=== PATIENT | female | born 1940 | race African-American/Black ===

== ENCOUNTER 2017-10-09 17:47 | Inpatient (IN) | payer MEDICAID ==
[~2017-10-09] VITALS: Ht 157.5 cm; Wt 59.0 kg
[~2017-10-09 17:47] MED LIST: FEOSOL1 TAB ORAL; FERROUS SULFAT500 G1 MC; METOPROLOL TART50 M1 ORAL; NKM; NORVASC5 MG ORAL; PROTONIX40 MG ORAL; VITAMIN C500 M1 ORAL; VITAMIN D1000 UNI1 ORAL
[2017-10-09] MEDS ORDERED: HYDRALAZINE HCL25 M1 ORAL (18:10)
[2017-10-09] MEDS ORDERED: METOPROLOL TART50 M1 ORAL (18:10)
[2017-10-09] MEDS ORDERED: VITAMIN D22000 UNIT PO (18:11)
[2017-10-09] MEDS ORDERED: HYDROCHLOROTHIA25 MG ORAL (18:11)
[2017-10-09] MEDS ORDERED: AMLODIPINE BESY10 MG ORAL (18:11)
[2017-10-09] MEDS ORDERED: ASPIR 8181 MG ORAL (18:11)
[2017-10-09 19:10] VITALS: BP 132/70
[2017-10-09 19:38] LABS: BASOPHILS % (AUTO) 1.8 % (0.0-2.0); EOSINOPHILS % (AUTO) 0.3 % (0.0-3.0); HEMATOCRIT 33.1 % (37.0-47.0); HEMOGLOBIN 11.2 G/DL (12.0-16.0); MEAN CORPUSCULAR VOLUME 80 FL (80-99); MONOCYTES % (AUTO) 11.5 % (1.0-10.0); NEUTROPHILS % (AUTO) 77.4 % (45.0-75.0); PLATELET COUNT 451 K/UL (150-450); RED BLOOD COUNT 4.16 M/UL (4.20-5.40); RED CELL DISTRIBUTION WIDTH 14.3 % (11.6-14.8); WHITE BLOOD COUNT 8.5 K/UL (4.8-10.8)
[2017-10-09 19:41] LABS: ANION GAP 11 mmol/L (5-15); BLOOD UREA NITROGEN 11 mg/dL (7-18); CALCIUM 8.5 MG/DL (8.5-10.1); CARBON DIOXIDE 25 MMOL/L (21-32); CHLORIDE 89 MMOL/L (98-107); CREATININE 0.9 MG/DL (0.55-1.30); SODIUM 125 MMOL/L (136-145)
[2017-10-09 19:42] LABS: APPEARANCE,URINE CLEAR; BILIRUBIN, URINE NEGATIVE (NEGATIVE); GLUCOSE, URINE (UA) NEGATIVE (NEGATIVE); KETONES,URINE 2+ (NEGATIVE); LEUKOCYTE ESTERASE ,URINE 1+ (NEGATIVE); NITRITE,URINE NEGATIVE (NEGATIVE); PH,URINE 6 (4.5-8.0); PROTEIN,URINE 1+ (NEGATIVE); UROBILINOGEN,URINE 1 MG/DL (0.0-1.0)
[2017-10-09 19:46] LABS: ALANINE AMINOTRANSFERASE 16 U/L (12-78); ALBUMIN 2.8 G/DL (3.4-5.0); ALBUMIN/GLOBULIN RATIO 0.5 (1.0-2.7); ALKALINE PHOSPHATASE 72 U/L (46-116); ASPARTATE AMINO TRANSFERASE 59 U/L (15-37); BILIRUBIN,TOTAL 0.6 MG/DL (0.2-1.0)
[2017-10-09 19:48] LABS: COLOR,URINE YELLOW
[2017-10-09 20:10] VITALS: BP 131/72
[2017-10-09 21:10] VITALS: BP 128/70
--- NOTE | 2017-10-09 21:27 | Emergency Room Report ---
History of Present Illness General Chief Complaint: General Complaint Source: Patient Present Illness HPI 77-year-old female presents to ED for evaluation. Daughter at bedside states that patient has been having poor appetite and weakness for the last week. Patient states whenever she eats she feels full. Denies any abdominal pain. Denies any nausea or vomiting. Denies fevers or chills. Denies cough. Denies chest pain or shortness of breath. No other aggravating relieving factors. Denies any other associated symptoms Allergies: Coded Allergies: No Known Allergies (Unverified , 06/09/16) Patient History Past Medical History: HTN Past Surgical History: none Pertinent Family History: none Social History: Denies: smoking, alcohol use, drug use Now: No Immunizations: UTD Reviewed Nursing Documentation: PMH: Agreed; PSxH: Agreed Nursing Documentation-PMH Hx Cardiac Problems: Yes Hx Hypertension: Yes Hx Cancer: No Hx Gastrointestinal Problems: No Hx Neurological Problems: No Review of Systems All Other Systems: negative except mentioned in HPI Physical Exam Vital Signs Date Time Temp Pulse Resp B/P (MAP) Pulse Ox O2 Delivery O2 Flow Rate FiO2 10/09/17 17:59 100.0 92 18 132/70 99 Room Air 100.0 Sp02 EP Interpretation: reviewed, normal General Appearance: no apparent distress, alert, GCS 15, non-toxic Head: normocephalic, atraumatic Eyes: bilateral eye normal inspection, bilateral eye PERRL ENT: hearing grossly normal, normal pharynx, no angioedema, normal voice Neck: full range of motion, supple/symm/no masses Respiratory: chest non-tender, lungs clear, normal breath sounds, speaking full sentences Cardiovascular #1: regular rate, rhythm, no edema Cardiovascular #2: 2+ carotid (R), 2+ carotid (L), 2+ radial (R), 2+ radial (L) , 2+ dorsalis pedis (R), 2+ dorsalis pedis (L) Gastrointestinal: normal bowel sounds, soft, no guarding, no rebound, distended Rectal: deferred Genitourinary: normal inspection, no CVA tenderness Musculoskeletal: back normal, gait/station normal, normal range of motion, non- tender Neurologic: alert, oriented x3, responsive, motor strength/tone normal, sensory intact, speech normal Psychiatric: judgement/insight normal, memory normal, mood/affect normal, no suicidal/homicidal ideation Reflexes: 3+ bicep (R), 3+ bicep (L), 3+ tricep (R), 3+ tricep (L), 3+ knee (R) , 3+ knee (L) Skin: normal color, no rash, warm/dry, well hydrated Lymphatic: no adenopathy Medical Decision Making Diagnostic Impression: Primary Impression: Carcinomatosis peritonei Additional Impressions: Pulmonary metastases Qualified Codes: C78.00 - Secondary malignant neoplasm of unspecified lung Hyponatremia Weakness ER Course Hospital Course 77-year-old female presents ED complaining of weakness, poor appetite Differential diagnoses include: dehydration, sepsis, UTI Clinical course Patient placed on stretcher. 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 After initial history and physical I ordered labs, IV fluids, UA, pepcid, CT A/P Labs - no leukocytosis, Hb/Hct stable. Na 125, UA negative CT abdomen and pelvis - carcinomatosis of the omentum and peritoneum. Ascites. Pulmonary metastases Discussed findings with patient. Patient had no prior knowledge of this condition. Case discussed with Dr. Reyes and he agreed to accept the patient to his service for further care and support I feel this is a highly complex case requiring extensive working including EKG/ Rhythm strip, Xray/CT/US, Blood/urine lab work, repeat exams while in ED, and administration of strong opiates/narcotics for pain control, admission to hospital or close patient follow up. Diagnosis - peritoneal carcinomatosis, pulmonary metastases, hyponatremia, weakness Patient admitted to floor in serious condition Labs Test 10/09/17 19:00 10/09/17 19:15 White Blood Count 8.5 K/UL (4.8-10.8) Red Blood Count 4.16 M/UL (4.20-5.40) Hemoglobin 11.2 G/DL (12.0-16.0) Hematocrit 33.1 % (37.0-47.0) Mean Corpuscular Volume 80 FL (80-99) Mean Corpuscular Hemoglobin 26.8 PG (27.0-31.0) Mean Corpuscular Hemoglobin Concent 33.7 G/DL (32.0-36.0) Red Cell Distribution Width 14.3 % (11.6-14.8) Platelet Count 451 K/UL (150-450) Mean Platelet Volume 6.1 FL (6.5-10.1) Neutrophils (%) (Auto) 77.4 % (45.0-75.0) Lymphocytes (%) (Auto) 9.0 % (20.0-45.0) Monocytes (%) (Auto) 11.5 % (1.0-10.0) Eosinophils (%) (Auto) 0.3 % (0.0-3.0) Basophils (%) (Auto) 1.8 % (0.0-2.0) Sodium Level 125 MMOL/L (136-145) Potassium Level 4.0 MMOL/L (3.5-5.1) Chloride Level 89 MMOL/L (98-107) Carbon Dioxide Level 25 MMOL/L (21-32) Anion Gap 11 mmol/L (5-15) Blood Urea Nitrogen 11 mg/dL (7-18) Creatinine 0.9 MG/DL (0.55-1.30) Estimat Glomerular Filtration Rate mL/min (>60) Glucose Level 91 MG/DL (74-106) Calcium Level 8.5 MG/DL (8.5-10.1) Total Bilirubin 0.6 MG/DL (0.2-1.0) Aspartate Amino Transf (AST/SGOT) 59 U/L (15-37) Alanine Aminotransferase (ALT/SGPT) 16 U/L (12-78) Alkaline Phosphatase 72 U/L (46-116) Total Protein 8.2 G/DL (6.4-8.2) Albumin 2.8 G/DL (3.4-5.0) Globulin 5.4 g/dL Albumin/Globulin Ratio 0.5 (1.0-2.7) Lipase 168 U/L (73-393) Urine Color Yellow Urine Appearance Clear Urine pH 6 (4.5-8.0) Urine Specific [place] 1.010 (1.005-1.035) Urine Protein 1+ (NEGATIVE) Urine Glucose (UA) Negative (NEGATIVE) Urine Ketones 2+ (NEGATIVE) Urine Occult Blood 4+ (NEGATIVE) Urine Nitrite Negative (NEGATIVE) Urine Bilirubin Negative (NEGATIVE) Urine Urobilinogen 1 MG/DL (0.0-1.0) Urine Leukocyte Esterase 1+ (NEGATIVE) Urine RBC 0-2 /HPF (0 - 2) Urine WBC 2-4 /HPF (0 - 2) Urine Squamous Epithelial Cells Few /LPF (NONE/OCC) Urine Bacteria Occasional /HPF (NONE) CT/MRI/US Diagnostic Results CT/MRI/US Diagnostic Results : Imaging Test Ordered: CT A/P Impression Moderate ascites. Significant omental/peritoneal carcinomatosis. Due to ascites/edema, cannot exclude pancreatitis, gastritis, enteritis, colitis. No SBO or diverticulitis. No hydronephrosis. Pulmonary metastasis. Last Vital Signs Date Time Temp Pulse Resp B/P (MAP) Pulse Ox O2 Delivery O2 Flow Rate FiO2 10/09/17 19:10 100.0 98 18 132/70 99 Room Air 100.0 Status: improved Disposition: ADMITTED INPATIENT Condition: Serious Referrals: VAN PHILLIPS,REFERRING (PCP) Pascual Torres MD Oct 09, 2017 21:27
[2017-10-09 22:02] VITALS: BP 140/82
[2017-10-09] MEDS ORDERED: Acetaminophen 500mg (ES) tab ORAL ONE (22:15)
[2017-10-09] MEDS: Metoprolol Tartrate 12.5mg TAB ORAL SCH (22:15)
[2017-10-09] MEDS ORDERED: D5NS 1,000 ML IV SCH (22:15)
[2017-10-09 23:00] VITALS: BP 138/82
[2017-10-09 23:56] VITALS: BP 103/46
[2017-10-10] MEDS: Heparin 5000 units/ml inj SUBQ SCH ×3 (00:13→20:25)
[2017-10-10 04:16] VITALS: BP 123/53
[2017-10-10 07:06] LABS: ALANINE AMINOTRANSFERASE 15 U/L (12-78); ALBUMIN 2.4 G/DL (3.4-5.0); ALBUMIN/GLOBULIN RATIO 0.5 (1.0-2.7); ALKALINE PHOSPHATASE 64 U/L (46-116); ANION GAP 9 mmol/L (5-15); ASPARTATE AMINO TRANSFERASE 60 U/L (15-37); BILIRUBIN,TOTAL 0.5 MG/DL (0.2-1.0); BLOOD UREA NITROGEN 9 mg/dL (7-18); CARBON DIOXIDE 27 MMOL/L (21-32); CHLORIDE 93 MMOL/L (98-107); CREATININE 0.7 MG/DL (0.55-1.30); POTASSIUM 3.2 MMOL/L (3.5-5.1); SODIUM 129 MMOL/L (136-145)
[2017-10-10 07:11] LABS: % IRON SATURATION 10 % (15-50); IRON 17 ug/dL (50-175); TOTAL IRON BINDING CAPACITY 177 ug/dL (250-450)
[2017-10-10 07:28] LABS: BASOPHILS % (AUTO) 1.4 % (0.0-2.0); EOSINOPHILS % (AUTO) 0.8 % (0.0-3.0); LYMPHOCYTES % (AUTO) 11.5 % (20.0-45.0); MEAN CORPUSCULAR VOLUME 80 FL (80-99); MONOCYTES % (AUTO) 13.4 % (1.0-10.0); NEUTROPHILS % (AUTO) 72.9 % (45.0-75.0); PLATELET COUNT 392 K/UL (150-450); RED BLOOD COUNT 4.01 M/UL (4.20-5.40); WHITE BLOOD COUNT 6.8 K/UL (4.8-10.8)
[2017-10-10 07:29] LABS: AMYLASE 37 U/L (25-115)
[2017-10-10 08:00] VITALS: BP 140/62
--- NOTE | 2017-10-10 08:01 | History & Physical ---
History and Physical History & Physicial seen and examined. Full Dict completed. Dalila Reyes MD Oct 10, 2017 08:01
--- NOTE | 2017-10-10 08:03 | General Progress Note ---
Assessment/Plan Status: stable Assessment/Plan 1- Metastatic CA- Diagnostic staging purpose 2- Hyponatremia 3- Anemia 4- HTN 5-malnourishment Plan: Oncology Nephrology GI services are consulted Subjective ROS Limited/Unobtainable: No Constitutional: Reports: malaise HEENT: Reports: no symptoms Cardiovascular: Reports: no symptoms Respiratory: Reports: no symptoms Allergies: Coded Allergies: No Known Allergies (Unverified , 06/09/16) Objective Last 24 Hour Vital Signs Date Time Temp Pulse Resp B/P (MAP) Pulse Ox O2 Delivery O2 Flow Rate FiO2 10/10/17 04:16 97.5 75 20 123/53 99 Room Air 97.5 10/09/17 23:56 98.4 57 18 103/46 98 Room Air 98.4 10/09/17 23:15 100.5 90 16 138/82 98 Room Air 100.5 10/09/17 23:10 100.5 10/09/17 23:00 100.5 90 16 138/82 98 Room Air 100.5 10/09/17 22:15 57 103/46 10/09/17 22:11 101.3 10/09/17 22:02 101.3 87 16 140/82 99 101.3 10/09/17 21:10 100.6 92 18 128/70 99 Room Air 100.6 10/09/17 20:10 100.2 90 18 131/72 99 Room Air 100.2 10/09/17 19:10 100.0 98 18 132/70 99 Room Air 100.0 10/09/17 17:59 100.0 92 18 132/70 99 Room Air 100.0 Intake and Output 10/09/17 10/10/17 19:00 07:00 Intake Total 1375 ml Balance 1375 ml Intake IV Total 1375 ml # Voids 4 # Bowel Movements 1 Laboratory Tests 10/09/17 19:00: White Blood Count 8.5, Red Blood Count 4.16L, Hemoglobin 11.2L, Hematocrit 33.1L , Mean Corpuscular Volume 80, Mean Corpuscular Hemoglobin 26.8L, Mean Corpuscular Hemoglobin Concent 33.7, Red Cell Distribution Width 14.3, Platelet Count 451H, Mean Platelet Volume 6.1L, Neutrophils (%) (Auto) 77.4H, Lymphocytes (%) (Auto) 9.0L, Monocytes (%) (Auto) 11.5H, Eosinophils (%) (Auto) 0.3, Basophils (%) (Auto) 1.8, Sodium Level 125L, Potassium Level 4.0, Chloride Level 89L, Carbon Dioxide Level 25, Anion Gap 11, Blood Urea Nitrogen 11, Creatinine 0.9, Estimat Glomerular Filtration Rate , Glucose Level 91, Calcium Level 8.5, Total Bilirubin 0.6, Aspartate Amino Transf (AST/SGOT) 59H, Alanine Aminotransferase (ALT/SGPT) 16, Alkaline Phosphatase 72, Total Protein 8.2, Albumin 2.8L, Globulin 5.4, Albumin/Globulin Ratio 0.5L, Lipase 168 10/09/17 19:15: Urine Color Yellow, Urine Appearance Clear, Urine pH 6, Urine Specific [place] 1.010, Urine Protein 1+H, Urine Glucose (UA) Negative, Urine Ketones 2+H, Urine Occult Blood 4+H, Urine Nitrite Negative, Urine Bilirubin Negative, Urine Urobilinogen 1H, Urine Leukocyte Esterase 1+H, Urine RBC 0-2, Urine WBC 2-4, Urine Squamous Epithelial Cells Few, Urine Bacteria Occasional 10/10/17 05:20: White Blood Count 6.8, Red Blood Count 4.01L, Hemoglobin 11.0L, Hematocrit 32.0L , Mean Corpuscular Volume 80, Mean Corpuscular Hemoglobin 27.4, Mean Corpuscular Hemoglobin Concent 34.4, Red Cell Distribution Width 14.0, Platelet Count 392, Mean Platelet Volume 5.4L, Neutrophils (%) (Auto) 72.9, Lymphocytes ( %) (Auto) 11.5L, Monocytes (%) (Auto) 13.4H, Eosinophils (%) (Auto) 0.8, Basophils (%) (Auto) 1.4, Sodium Level 129L, Potassium Level 3.2L, Chloride Level 93L, Carbon Dioxide Level 27, Anion Gap 9, Blood Urea Nitrogen 9, Creatinine 0.7, Estimat Glomerular Filtration Rate , Glucose Level 95, Calcium Level 8.0L, Total Bilirubin 0.5, Aspartate Amino Transf (AST/SGOT) 60H, Alanine Aminotransferase (ALT/SGPT) 15, Alkaline Phosphatase 64, Total Protein 7.5, Albumin 2.4L, Globulin 5.1, Albumin/Globulin Ratio 0.5L, Lipase 138, Hemoglobin A1c 6.0, Iron Level 17L, Total Iron Binding Capacity 177L, Percent Iron Saturation 10L, Unsaturated Iron Binding 160, Pro-B-Type Natriuretic Peptide 692H, Total Protein (PEP) [Pending], Albumin (PEP) [Pending], Globulin (PEP) [ Pending], Evqag-0-Gjlwrknfa [Pending], Tytls-6-Bdkynxijf [Pending], Beta Globulins [Pending], Beta Gamma Globulin [Pending], PEP Abnormal Protein Bands [ Pending], Protein Electrophoresis Interpret [Pending], Amylase Level 37, Hepatitis A IgM Antibody [Pending], Hepatitis B Surface Antigen [Pending], Hepatitis B Core IgM Antibody [Pending], Hepatitis C Antibody [Pending] Height (Feet): 5 Height (Inches): 2.00 Weight (Pounds): 130 General Appearance: WD/WN EENT: PERRL/EOMI Neck: supple Cardiovascular: normal rate Respiratory/Chest: lungs clear Abdomen: soft, other - site of prior abd surgey noted Extremities: non-tender, other - low muscle mass and cachexia Neurologic: java j2ee technical lead II-XII grossly normal Dalila Reyes MD Oct 10, 2017 08:03
[2017-10-10] MEDS: Metoprolol Tartrate 12.5mg TAB ORAL SCH ×2 (08:15→20:24)
--- NOTE | 2017-10-10 09:33 | Diagnostic Imaging Report ---
Clinical Indication: Abdominal pain Technique: No oral contrast utilized, per emergency room physician request IV administration nonionic contrast. Venous phase spiral acquisition obtained through the abdomen and pelvis. Multiplanar reconstructions were generated. Total dose length product 584.38 mGycm. CTDIvol(s) 11.46 mGy. Dose reduction achieved using automated exposure control Comparison: 01/18/2017 Findings: Interim resection of previously demonstrated right cecal mass with a colocolic anastomosis. No evidence of bowel obstruction currently. However, innumerable masses are seen throughout the peritoneal space and probably the retroperitoneum. The largest is in the right paracolic gutter and has a long axis dimension of 14 cm. These mostly demonstrate low-attenuation centers consistent with necrosis. There is a small amount of ascites fluid present. There is a small sliding-type hiatal hernia. A few small bowel loops demonstrate equivocal mild wall thickening. No free intraperitoneal gas demonstrated. There is a small fat-containing left inguinal hernia The liver, gallbladder, bile ducts, pancreas, spleen, adrenals are unremarkable. The kidneys demonstrate bilateral cysts. The uterus is not visualized, presumed surgically absent. Bilateral lung base nodules are demonstrated, largest on the left measuring 3 cm in diameter. The bones are unremarkable except for degenerative spondylosis changes. Impression: No evidence of bowel obstruction Interim resection of previously demonstrated cecal mass Extensive multiple peritoneal and mesenteric and retroperitoneal masses, markedly progressed since previous exam of 01/18/2017, consistent with metastatic carcinomatosis Ascites, presumed malignant Pulmonary masses consistent with metastases Evidence of prior hysterectomy This agrees with the preliminary interpretation provided overnight by [facility] teleradiology service. The CT scanner at [facility] is accredited by the [employer] and the scans are performed using protocols designed to limit radiation exposure to as low as reasonably achievable to attain images of sufficient resolution adequate for diagnostic evaluation.
--- NOTE | 2017-10-10 10:49 | GI Initial Consult Note ---
History of Present Illness General Date patient seen: Oct 10, 2017 Time patient seen: 10:39 Reason for Hospitalization: General Complaint Referring physician: CHARI PEREYRA Present Illness HPI 77-year-old female presents to ED for evaluation. Daughter at bedside states that patient has been having poor appetite and weakness for the last week. Patient states whenever she eats she feels full. Denies any abdominal pain. Denies any nausea or vomiting. Denies fevers or chills. Denies cough. Denies chest pain or shortness of breath. No other aggravating relieving factors. Denies any other associated symptoms. GI consulted for poor appetite. Pt seen, awake alert NAD with no active s/sx of N/V/D. Patient previously seen at [place] found to have metastatic adenocarcinoma, see diagnosis below. CT AP reviewed. She presents today with anemia, AST elevation and electrolyte imbalance. CT AP Impression: No evidence of bowel obstruction Interim resection of previously demonstrated cecal mass Extensive multiple peritoneal and mesenteric and retroperitoneal masses, markedly progressed since previous exam of 01/18/2017, consistent with metastatic carcinomatosis Ascites, presumed malignant Pulmonary masses consistent with metastases Evidence of prior hysterectomy DISCHARGE DIAGNOSES during last admission in January 2017: 1. 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 2. Status post right hemicolectomy on 01/21/2017. 3. Iron-deficiency anemia. 4. Postoperative ileus. 5. Hypertensive urgency, resolved. 6. Thyroid goiter, nontoxic 7. Status post on 01/18/2017 esophagogastroduodenoscopy and colonoscopy. 8. Gastritis. 9. Large colonic mass, status post one polypectomy. Home Meds Active Scripts Amlodipine Besylate (Norvasc) 5 Mg Tablet, 5 MG ORAL BID for 30 Days, #60 TAB Prov:ALETA LÓPEZ 06/11/16 Pantoprazole* (PROTONIX*) 40 Mg Tablet., 40 MG ORAL DAILY for 30 Days, #30 TAB Prov:ALETA LÓPEZ 06/11/16 Reported Medications Aspirin* (ASPIR 81*) 81 Mg Tablet.dr, 81 MG ORAL DAILY, TAB 10/09/17 Ergocalciferol (Vitamin D2) (VITAMIN D2) 2,000 Unit Tablet, [address] UNIT PO ONCE A WEEK, TAB 10/09/17 Amlodipine Besylate* (AMLODIPINE BESYLATE*) 10 Mg Tablet, 20 MG ORAL DAILY, TAB 10/09/17 Hydrochlorothiazide* (HYDROCHLOROTHIAZIDE*) 25 Mg Tablet, 25 MG ORAL DAILY, TAB 10/09/17 Metoprolol Tartrate* (METOPROLOL TARTRATE*) 50 Mg Tablet, 50 MG ORAL TWICE A DAY , TAB 10/09/17 Hydralazine Hcl* (HYDRALAZINE HCL*) 25 Mg Tablet, 25 MG ORAL TWICE A DAY, TAB 0 Refills 10/09/17 Metoprolol Tartrate* (METOPROLOL TARTRATE*) 50 Mg Tablet, 50 MG ORAL EVERY 12 HOURS, TAB 01/25/17 No Known Medications* (NKM - No Known Medications*) ., 0 ., 0 Refills 01/16/17 Ferrous Sulfate (Ferrous Sulfate) 325 Mg Tablet, 1 TAB ORAL TID, #90 TAB 2 Refills 06/11/16 Ferrous Sulfate (Ferrous Sulfate) 325 Mg Tablet, 1 TAB ORAL TID, #90 TAB 0 Refills 06/11/16 Med list reviewed/reconciled: Yes Allergies: Coded Allergies: No Known Allergies (Unverified , 06/09/16) Patient History Limited by: medical condition History Provided By: Patient, Medical Record PMH Narrative Past Medical History: HTN Past Surgical History: none Pertinent Family History: none Social History: Denies: smoking, alcohol use, drug use Now: No Immunizations: UTD Reviewed Nursing Documentation: PMH: Agreed; PSxH: Agreed Nursing Documentation-PMH Hx Cardiac Problems: Yes Hx Hypertension: Yes Hx Cancer: No Hx Gastrointestinal Problems: No Hx Neurological Problems: No Social History: Denies: smoking, alcohol use, drug use, other Review of Systems All Other Systems: negative except mentioned in HPI Physical Exam Vital Signs Date Time Temp Pulse Resp B/P (MAP) Pulse Ox O2 Delivery O2 Flow Rate FiO2 10/09/17 17:59 100.0 92 18 132/70 99 Room Air 100.0 Sp02 EP Interpretation: reviewed, normal Labs Laboratory Tests Test 10/09/17 19:00 10/09/17 19:15 10/10/17 05:20 White Blood Count 8.5 K/UL (4.8-10.8) 6.8 K/UL (4.8-10.8) Red Blood Count 4.16 M/UL (4.20-5.40) L 4.01 M/UL (4.20-5.40) L Hemoglobin 11.2 G/DL (12.0-16.0) L 11.0 G/DL (12.0-16.0) L Hematocrit 33.1 % (37.0-47.0) L 32.0 % (37.0-47.0) L Mean Corpuscular Volume 80 FL (80-99) 80 FL (80-99) Mean Corpuscular Hemoglobin 26.8 PG (27.0-31.0) L 27.4 PG (27.0-31.0) Mean Corpuscular Hemoglobin Concent 33.7 G/DL (32.0-36.0) 34.4 G/DL (32.0-36.0) Red Cell Distribution Width 14.3 % (11.6-14.8) 14.0 % (11.6-14.8) Platelet Count 451 K/UL (150-450) H 392 K/UL (150-450) Mean Platelet Volume 6.1 FL (6.5-10.1) L 5.4 FL (6.5-10.1) L Neutrophils (%) (Auto) 77.4 % (45.0-75.0) H 72.9 % (45.0-75.0) Lymphocytes (%) (Auto) 9.0 % (20.0-45.0) L 11.5 % (20.0-45.0) L Monocytes (%) (Auto) 11.5 % (1.0-10.0) H 13.4 % (1.0-10.0) H Eosinophils (%) (Auto) 0.3 % (0.0-3.0) 0.8 % (0.0-3.0) Basophils (%) (Auto) 1.8 % (0.0-2.0) 1.4 % (0.0-2.0) Sodium Level 125 MMOL/L (136-145) L 129 MMOL/L (136-145) L Potassium Level 4.0 MMOL/L (3.5-5.1) 3.2 MMOL/L (3.5-5.1) L Chloride Level 89 MMOL/L (98-107) L 93 MMOL/L (98-107) L Carbon Dioxide Level 25 MMOL/L (21-32) 27 MMOL/L (21-32) Anion Gap 11 mmol/L (5-15) 9 mmol/L (5-15) Blood Urea Nitrogen 11 mg/dL (7-18) 9 mg/dL (7-18) Creatinine 0.9 MG/DL (0.55-1.30) 0.7 MG/DL (0.55-1.30) Estimat Glomerular Filtration Rate mL/min (>60) mL/min (>60) Glucose Level 91 MG/DL (74-106) 95 MG/DL (74-106) Calcium Level 8.5 MG/DL (8.5-10.1) 8.0 MG/DL (8.5-10.1) L Total Bilirubin 0.6 MG/DL (0.2-1.0) 0.5 MG/DL (0.2-1.0) Aspartate Amino Transf (AST/SGOT) 59 U/L (15-37) H 60 U/L (15-37) H Alanine Aminotransferase (ALT/SGPT) 16 U/L (12-78) 15 U/L (12-78) Alkaline Phosphatase 72 U/L (46-116) 64 U/L (46-116) Total Protein 8.2 G/DL (6.4-8.2) 7.5 G/DL (6.4-8.2) Albumin 2.8 G/DL (3.4-5.0) L 2.4 G/DL (3.4-5.0) L Globulin 5.4 g/dL 5.1 g/dL Albumin/Globulin Ratio 0.5 (1.0-2.7) L 0.5 (1.0-2.7) L Lipase 168 U/L (73-393) 138 U/L (73-393) Urine Color Yellow Urine Appearance Clear Urine pH 6 (4.5-8.0) Urine Specific [place] 1.010 (1.005-1.035) Urine Protein 1+ (NEGATIVE) H Urine Glucose (UA) Negative (NEGATIVE) Urine Ketones 2+ (NEGATIVE) H Urine Occult Blood 4+ (NEGATIVE) H Urine Nitrite Negative (NEGATIVE) Urine Bilirubin Negative (NEGATIVE) Urine Urobilinogen 1 MG/DL (0.0-1.0) H Urine Leukocyte Esterase 1+ (NEGATIVE) H Urine RBC 0-2 /HPF (0 - 2) Urine WBC 2-4 /HPF (0 - 2) Urine Squamous Epithelial Cells Few /LPF (NONE/OCC) Urine Bacteria Occasional /HPF (NONE) Hemoglobin A1c 6.0 % (4.3-6.0) Iron Level 17 ug/dL (50-175) L Total Iron Binding Capacity 177 ug/dL (250-450) L Percent Iron Saturation 10 % (15-50) L Unsaturated Iron Binding 160 ug/dL (112-346) Pro-B-Type Natriuretic Peptide 692 pg/mL (0-125) H Total Protein (PEP) Pending Albumin (PEP) Pending Globulin (PEP) Pending Yexcf-5-Nywuetmyw Pending Qnlrw-5-Yfcurljad Pending Beta Globulins Pending Beta Gamma Globulin Pending PEP Abnormal Protein Bands Pending Protein Electrophoresis Interpret Pending Amylase Level 37 U/L (25-115) Hepatitis A IgM Antibody Pending Hepatitis B Surface Antigen Pending Hepatitis B Core IgM Antibody Pending Hepatitis C Antibody Pending General Appearance: well appearing, no apparent distress, alert, thin Head: normocephalic EENT: PERRL/EOMI, normal ENT inspection Neck: supple Respiratory: normal breath sounds, no respiratory distress Cardiovascular: normal rate Gastrointestinal: normal inspection, non tender, soft, normal bowel sounds, non -distended Rectal: deferred Genitourinary: no CVA tenderness Musculoskeletal: normal inspection, back normal Neurologic: normal inspection, alert, oriented x3, responsive Psychiatric: normal inspection Skin: normal inspection, normal color, no rash, warm/dry, palpation normal, well hydrated Lymphatic: normal inspection, no adenopathy Current Medications Current Medications Medications (Trade) Dose Ordered Sig/Richardson Route PRN Reason Start Time Stop Time Status Last Admin Dose Admin Acetaminophen (Tylenol) 650 mg Q6H PRN ORAL Mild Pain/Temp > 100.5 10/09/17 22:15 11/08/17 22:14 Heparin Sodium (Porcine) (Heparin 5000 units/ml) 5,000 units EVERY 12 HOURS SUBQ 10/09/17 22:15 11/08/17 22:14 10/10/17 08:16 Metoprolol Tartrate (Lopressor) 12.5 mg Q12HR ORAL 10/09/17 22:15 11/08/17 22:14 10/10/17 08:15 Pantoprazole (Protonix) 40 mg DAILY ORAL 10/10/17 09:00 11/09/17 08:59 10/10/17 08:15 Potassium Chloride (K-Dur) 40 meq ONCE ONCE ORAL 10/10/17 12:00 10/10/17 12:01 GI: Plan Problems: (1) Colon cancer (2) Anemia (3) Iron deficiency (4) Lung nodules (5) Carcinomatosis peritonei (6) Hyponatremia (7) Weakness Plan 1. 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 2. Status post right hemicolectomy on 01/21/2017. 3. Iron-deficiency anemia. 4. Postoperative ileus. 5. Hypertensive urgency, resolved. 6. Thyroid goiter, nontoxic 7. Status post on 01/18/2017 esophagogastroduodenoscopy and colonoscopy. 8. Gastritis. 9. Large colonic mass, status post one polypectomy. Recommendations: fu oncology recs symptomatic treatment / supportive care regular soft diet, push PO 1:1 feeder calorie count >> marinol/megace if needed ppi iron panel IV/PO hydration electrolyte correction fu labs, tumor markers, hep panel Discussed with Dr. Styles. Thank you for this patient referral, we will follow. Luna Estrada N.P. Oct 10, 2017 10:49
[2017-10-10 12:00] VITALS: BP 133/61
--- NOTE | 2017-10-10 14:06 | Diagnostic Imaging Report ---
Indication: Abdominal pain Technique: Burgos-scale and duplex images of the upper abdomen were obtained Comparison: . No comparison ultrasounds. Reference made to CT scan 10/09/2017 Findings: There is a small amount of ascites fluid present. Large masses are seen in the abdomen, demonstrating low attenuation presumably necrotic centers. These correspond to a few of the masses demonstrated on recent CT Gallbladder demonstrates a calculus in the gallbladder neck. This is occult on recent CT scan. The gallbladder wall is not thickened. Sonographic Rogers's sign is negative. Common bile duct measures 5 mm in diameter. No intrahepatic biliary ductal dilatation. Liver demonstrates normal echogenicity, no focal abnormality. Portal vein and hepatic veins are patent. Pancreas is unremarkable. Spleen is unremarkable. Left kidney measures 10.5 cm in length. Right kidney measures 11.5 cm length. Both kidneys demonstrate normal echogenicity. There is no hydronephrosis. Both kidneys demonstrate cysts . Abdominal aorta is partially obscured by bowel gas, visualized portions are non-aneurysmal . Ultrasound appears to demonstrate a small left pleural effusion. This is probably artifactual as no pleural fluid is demonstrated on recent CT, possibly represents ascites above the spleen Impression: Cholelithiasis, not visible on recent CT scan. No secondary signs of acute cholecystitis. Negative for biliary ductal dilatation. Small amount of ascites fluid present, also previously described Large abdominal masses, also demonstrated on recent CT Bilateral renal cysts Note limited visualization of the abdominal aorta
[2017-10-10 16:00] VITALS: BP 130/60
--- NOTE | 2017-10-10 19:00 | History and Physical Report ---
DATE OF ADMISSION: 10/09/2017 SOURCE OF INFORMATION: The patient and EMR. HISTORY OF PRESENT ILLNESS: The patient is a pleasant 77-year-old -[place] female with unremarkable history. The patient reported she is suffering from weakness that is worsening from a couple of days to week. At this time of evaluation, the patient denies any chest pain, shortness of breath. No abnormal bleeding. The patient is ambulating with no limitations. REVIEW OF SYSTEMS: All 12 elements reviewed as above. PAST MEDICAL HISTORY: Hypertension and anemia. FAMILY HISTORY: Reviewed and noncontributory. MEDICATIONS: Current hospital medications including amlodipine, aspirin, ferrous sulfate, hydralazine, and metoprolol. SOCIAL HISTORY: The patient denies history of illicit drug abuse, smoking, or alcohol abuse. The patient is a mother of two children, currently one alive. She is a grandmother with two grandchildren. PHYSICAL EXAMINATION: VITAL SIGNS: Blood pressure 130/70, temperature 100, pulse rate 95, and pulse oximetry 99% on room air. HEAD AND NECK: Atraumatic and normocephalic. CHEST: Clear with no wheezing or crackles. HEART: S1 and S2. Regular rate and rhythm. No S3. No S4. ABDOMEN: Soft. No organomegaly. No tenderness. MUSCULOSKELETAL: No gross lateralized motor deficits. No edema. NEUROLOGIC: The patient is awake, alert, and oriented x3. PSYCHIATRIC: Mood and affect is appropriate. LABORATORY DATA: Labs, dated October 09, WBC 8.5, hemoglobin 11.2, and platelets 461,000. Sodium 125, potassium 4, BUN 11, and creatinine 0.9. AST 59 and ALT . BNP 700. Albumin 2.8. Urinalysis is unremarkable for infection. Positive for occult blood. Serology is pending. Imaging, official report is pending. ASSESSMENT: 1. Metastatic cancer with high likelihood of colon as a primary. 2. Hyponatremia. 3. Abnormal LFT. 4. Decondition is likely general diffuse weakness. 5. Malnourishment, moderate. 6. Anemia. 7. Hypertension. 8. Hypokalemia. 9. Gastrointestinal and deep venous thrombosis prophylaxis. PLAN OF CARE: We will start the diagnostic staging purpose per Oncology advice. GI and Nephrology have been consulted. We will start the regular diet. Cleoammaedison Reyes M.D. DR: DARCY JOB#: [id number] CC:
[2017-10-10 19:42] VITALS: BP 146/72
[2017-10-10 23:55] VITALS: BP 134/70
--- NOTE | 2017-10-11 04:01 | Consultation ---
DATE OF CONSULTATION: 10/10/2017 NOTE: POOR AUDIO HEMATOLOGY/ONCOLOGY CONSULTATION CONSULTING PHYSICIAN: Casa Pascal M.D. REQUESTING PHYSICIAN: Dalila Reyes M.D. REASON FOR CONSULTATION: Evaluation of extensive retroperitoneal metastasis , ascites, malignant pulmonary masses. IDENTIFYING DATA: Dear Dr. Reyes, The patient is a pleasant 77-year-old female I have seen before in the past, presents to the ER. The patient states she has been having decreased appetite. I have seen her in the past. She has a history of cecal GI cancer. Denies any other symptoms. GI consulted for poor oral intake. No nausea. No vomiting. Prior was admitted to [facility] with metastatic adenocarcinoma, has not received treatment at this time and Hematology Service consulted. At this time, CT scan performed, which shows worsening disease and some pulmonary nodules as well, large colonic mass noted as well. PAST MEDICAL HISTORY: As noted above. PAST SURGICAL HISTORY: Colectomy. MEDICATIONS: Amlodipine, aspirin, hydrochlorothiazide, metoprolol, hydralazine, and ferrous sulfate. ALLERGIES: No known drug allergies. REVIEW OF SYSTEMS: CONSTITUTIONAL: Some fatigue noted. SKIN: No rashes, bumps, or itching. HEENT: No headache, hearing or vision changes. BREASTS: No lumps, pain, or discharge. PULMONARY: No cough, sputum, or shortness of breath. GASTROINTESTINAL: No nausea, vomiting, or diarrhea. GENITOURINARY: No dysuria, frequency, or urgency. MUSCULOSKELETAL: No joint swelling, muscle pain, or trauma. PHYSICAL EXAMINATION: VITAL SIGNS: Reviewed. GENERAL: No distress. PULMONARY: Decreased breath sounds. Some crackles at the bases. CARDIOVASCULAR: Regular rate. No S3 or S4. ABDOMEN: Soft, nontender, and nondistended. EXTREMITIES: No cyanosis, swelling, or edema noted. LABORATORY AND DIAGNOSTIC DATA: CEA at this time is pending. Serology reviewed, hepatitis panel is currently negative. Imaging reviewed. . ASSESSMENT AND RECOMMENDATIONS: 1. 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 At this time, the patient is currently fatigued and weak, likely due to underlying malignancy. We will need to discuss with her in regards to treatment versus palliation. We will need to also discuss with primary physician. 2. Anemia of iron deficiency. Continue to closely monitor. 3. Transaminitis, likely secondary to involvement, has been seen by GI Service. 4. Weakness and fatigue, likely due to metastatic cancer, stage IV. 5. Malnourishment due to cancer, remains . 6. Hypertension. Systolic blood pressure goal less than 140. I appreciate the consultation Casa Pascal M.D. DR: EVE JOB#: [id number] CC:
[2017-10-11 04:19] VITALS: BP 128/63
[2017-10-11 06:16] LABS: BASOPHILS % (AUTO) 0.9 % (0.0-2.0); EOSINOPHILS % (AUTO) 0.9 % (0.0-3.0); HEMATOCRIT 32.4 % (37.0-47.0); HEMOGLOBIN 10.9 G/DL (12.0-16.0); LYMPHOCYTES % (AUTO) 15.6 % (20.0-45.0); MEAN CORPUSCULAR VOLUME 80 FL (80-99); MONOCYTES % (AUTO) 7.8 % (1.0-10.0); NEUTROPHILS % (AUTO) 74.8 % (45.0-75.0); PLATELET COUNT 408 K/UL (150-450); RED BLOOD COUNT 4.07 M/UL (4.20-5.40); RED CELL DISTRIBUTION WIDTH 14.4 % (11.6-14.8); WHITE BLOOD COUNT 10.1 K/UL (4.8-10.8)
[2017-10-11 06:35] LABS: ALANINE AMINOTRANSFERASE 11 U/L (12-78); ALBUMIN 2.4 G/DL (3.4-5.0); ALBUMIN/GLOBULIN RATIO 0.5 (1.0-2.7); ALKALINE PHOSPHATASE 59 U/L (46-116); ANION GAP 11 mmol/L (5-15); ASPARTATE AMINO TRANSFERASE 63 U/L (15-37); BILIRUBIN,TOTAL 0.4 MG/DL (0.2-1.0); BLOOD UREA NITROGEN 5 mg/dL (7-18); CALCIUM 7.9 MG/DL (8.5-10.1); CARBON DIOXIDE 26 MMOL/L (21-32); CHLORIDE 95 MMOL/L (98-107); CREATININE 0.6 MG/DL (0.55-1.30); POTASSIUM 4.1 MMOL/L (3.5-5.1); SODIUM 131 MMOL/L (136-145)
[2017-10-11] MEDS: Metoprolol Tartrate 12.5mg TAB ORAL SCH ×2 (08:43→20:38)
[2017-10-11 08:44] VITALS: BP 139/75
[2017-10-11] MEDS: Heparin 5000 units/ml inj SUBQ SCH ×2 (08:45→20:39)
--- NOTE | 2017-10-11 09:33 | General Progress Note ---
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 - Secondary malignant neoplasm of retroperitoneum and peritoneum; C80.1 - Malignant (primary) neoplasm, unspecified SNOMED: 594386325, 223755598 (7) Pulmonary metastases ICD Codes: C78.00 - Secondary malignant neoplasm of unspecified lung SNOMED: 41030979, 199031111 Qualifiers: Qualified Codes: C78.00 - Secondary malignant neoplasm of unspecified lung Assessment/Plan advance diet no plan for any GI procedures at this time oncology recs Subjective ROS Limited/Unobtainable: Yes - wants reg diet Allergies: Coded Allergies: No Known Allergies (Unverified , 06/09/16) Objective Last 24 Hour Vital Signs Date Time Temp Pulse Resp B/P (MAP) Pulse Ox O2 Delivery O2 Flow Rate FiO2 10/11/17 08:44 99.3 99 14 139/75 100 Room Air 99.3 10/11/17 08:43 107 128/63 10/11/17 04:19 98.1 107 20 128/63 98 98.1 10/10/17 23:55 97.9 90 18 134/70 97 97.9 10/10/17 20:24 93 146/72 10/10/17 19:42 98.1 93 18 146/72 98 98.1 10/10/17 16:00 100.0 90 19 130/60 98 Room Air 100.0 10/10/17 15:50 100.0 10/10/17 14:51 100.5 10/10/17 12:00 98.1 96 20 133/61 99 Room Air 98.1 Intake and Output 10/10/17 10/11/17 19:00 07:00 Intake Total 800 ml 240 ml Balance 800 ml 240 ml Intake Oral 800 ml 240 ml # Voids 3 1 # Bowel Movements 1 Laboratory Tests 10/10/17 11:30: Stool Occult Blood [Pending] 10/11/17 05:05: White Blood Count 10.1, Red Blood Count 4.07L, Hemoglobin 10.9L, Hematocrit 32.4L, Mean Corpuscular Volume 80, Mean Corpuscular Hemoglobin 26.9L, Mean Corpuscular Hemoglobin Concent 33.7, Red Cell Distribution Width 14.4, Platelet Count 408, Mean Platelet Volume 5.3L, Neutrophils (%) (Auto) 74.8, Lymphocytes ( %) (Auto) 15.6L, Monocytes (%) (Auto) 7.8, Eosinophils (%) (Auto) 0.9, Basophils (%) (Auto) 0.9, Sodium Level 131L, Potassium Level 4.1, Chloride Level 95L, Carbon Dioxide Level 26, Anion Gap 11, Blood Urea Nitrogen 5L, Creatinine 0.6, Estimat Glomerular Filtration Rate , Glucose Level 84, Calcium Level 7.9L, Total Bilirubin 0.4, Aspartate Amino Transf (AST/SGOT) 63H, Alanine Aminotransferase (ALT/SGPT) 11L, Alkaline Phosphatase 59, Total Protein 7.4, Albumin 2.4L, Globulin 5.0, Albumin/Globulin Ratio 0.5L Height (Feet): 5 Height (Inches): 2.00 Weight (Pounds): 130 General Appearance: no apparent distress EENT: normal ENT inspection Neck: supple Cardiovascular: normal rate Respiratory/Chest: decreased breath sounds Abdomen: soft, decreased bowel sounds, distended Extremities: non-tender MANDA TSANG Oct 11, 2017 09:33
[2017-10-11 12:28] VITALS: BP 122/66
--- NOTE | 2017-10-11 15:03 | Consultation ---
History of Present Illness General Date patient seen: Oct 10, 2017 Chief Complaint: General Complaint Referring physician: CHARI PEREYRA Present Illness HPI 77-year-old -[place] female with weakness and low appetite. the pt also endorses anhedonia and anxiety at times. no si/hi Allergies: Coded Allergies: No Known Allergies (Unverified , 06/09/16) Medication History Scheduled Amlodipine Besylate (Norvasc), 5 MG ORAL BID Amlodipine Besylate* (Amlodipine Besylate*), 20 MG ORAL DAILY, (Reported) Aspirin* (Aspir 81*), 81 MG ORAL DAILY, (Reported) Ergocalciferol (Vitamin D2) (Vitamin D2), 50,000 UNIT PO ONCE A WEEK, (Reported) Ferrous Sulfate (Ferrous Sulfate), 1 TAB ORAL TID, (Reported) Ferrous Sulfate (Ferrous Sulfate), 1 TAB ORAL TID, (Reported) Hydralazine Hcl* (Hydralazine Hcl*), 25 MG ORAL TWICE A DAY, (Reported) Hydrochlorothiazide* (Hydrochlorothiazide*), 25 MG ORAL DAILY, (Reported) Metoprolol Tartrate* (Metoprolol Tartrate*), 50 MG ORAL EVERY 12 HOURS, ( Reported) Metoprolol Tartrate* (Metoprolol Tartrate*), 50 MG ORAL TWICE A DAY, (Reported) No Known Medications* (NKM - No Known Medications*), 0 ., (Reported) Pantoprazole* (Protonix*), 40 MG ORAL DAILY Patient History Limited by: medical condition History Provided By: Patient, Medical Record, PMD Healthcare decision maker Resuscitation status Full Code Advanced Directive on File Past Medical/Surgical History Past Medical/Surgical History: (1) Colonoscopy planned (2) DVT (deep venous thrombosis) (3) Pulmonary metastases (4) Carcinomatosis peritonei (5) Iron deficiency (6) Anemia (7) Hyponatremia (8) Weakness (9) Colon cancer (10) Lung nodules Review of Systems Psychiatric: Reports: depressed feelings Physical Exam General Appearance: no apparent distress, alert Neurologic: oriented x 3, depressed affect Last 24 Hour Vital Signs Date Time Temp Pulse Resp B/P (MAP) Pulse Ox O2 Delivery O2 Flow Rate FiO2 10/11/17 12:28 97.0 87 15 122/66 100 Room Air 97.0 10/11/17 08:44 99.3 99 14 139/75 100 Room Air 99.3 10/11/17 08:43 107 128/63 10/11/17 04:19 98.1 107 20 128/63 98 98.1 10/10/17 23:55 97.9 90 18 134/70 97 97.9 10/10/17 20:24 93 146/72 10/10/17 19:42 98.1 93 18 146/72 98 98.1 10/10/17 16:00 100.0 90 19 130/60 98 Room Air 100.0 10/10/17 15:50 100.0 Intake and Output 10/10/17 10/11/17 19:00 07:00 Intake Total 800 ml 240 ml Balance 800 ml 240 ml Intake Oral 800 ml 240 ml # Voids 3 1 # Bowel Movements 1 Laboratory Tests Test 10/11/17 05:05 10/11/17 14:30 White Blood Count 10.1 K/UL (4.8-10.8) Red Blood Count 4.07 M/UL (4.20-5.40) L Hemoglobin 10.9 G/DL (12.0-16.0) L Hematocrit 32.4 % (37.0-47.0) L Mean Corpuscular Volume 80 FL (80-99) Mean Corpuscular Hemoglobin 26.9 PG (27.0-31.0) L Mean Corpuscular Hemoglobin Concent 33.7 G/DL (32.0-36.0) Red Cell Distribution Width 14.4 % (11.6-14.8) Platelet Count 408 K/UL (150-450) Mean Platelet Volume 5.3 FL (6.5-10.1) L Neutrophils (%) (Auto) 74.8 % (45.0-75.0) Lymphocytes (%) (Auto) 15.6 % (20.0-45.0) L Monocytes (%) (Auto) 7.8 % (1.0-10.0) Eosinophils (%) (Auto) 0.9 % (0.0-3.0) Basophils (%) (Auto) 0.9 % (0.0-2.0) Sodium Level 131 MMOL/L (136-145) L Potassium Level 4.1 MMOL/L (3.5-5.1) Chloride Level 95 MMOL/L (98-107) L Carbon Dioxide Level 26 MMOL/L (21-32) Anion Gap 11 mmol/L (5-15) Blood Urea Nitrogen 5 mg/dL (7-18) L Creatinine 0.6 MG/DL (0.55-1.30) Estimat Glomerular Filtration Rate mL/min (>60) Glucose Level 84 MG/DL (74-106) Calcium Level 7.9 MG/DL (8.5-10.1) L Total Bilirubin 0.4 MG/DL (0.2-1.0) Aspartate Amino Transf (AST/SGOT) 63 U/L (15-37) H Alanine Aminotransferase (ALT/SGPT) 11 U/L (12-78) L Alkaline Phosphatase 59 U/L (46-116) Total Protein 7.4 G/DL (6.4-8.2) Albumin 2.4 G/DL (3.4-5.0) L Globulin 5.0 g/dL Albumin/Globulin Ratio 0.5 (1.0-2.7) L Stool Occult Blood Pending Height (Feet): 5 Height (Inches): 2.00 Weight (Pounds): 130 Medications Current Medications Medications (Trade) Dose Ordered Sig/Richardson Route PRN Reason Start Time Stop Time Status Last Admin Dose Admin Acetaminophen (Tylenol) 650 mg Q6H PRN ORAL Mild Pain/Temp > 100.5 10/09/17 22:15 11/08/17 22:14 10/10/17 14:51 Heparin Sodium (Porcine) (Heparin 5000 units/ml) 5,000 units EVERY 12 HOURS SUBQ 10/09/17 22:15 11/08/17 22:14 10/11/17 08:45 Metoprolol Tartrate (Lopressor) 12.5 mg Q12HR ORAL 10/09/17 22:15 11/08/17 22:14 10/11/17 08:43 Pantoprazole (Protonix) 40 mg DAILY ORAL 10/10/17 09:00 11/09/17 08:59 10/11/17 08:43 Assessment/Plan Status: stable Assessment/Plan mdd lexapro 10mg po Arvin Richmond M.D. Oct 11, 2017 15:03
[2017-10-11 16:00] VITALS: BP 134/58
--- NOTE | 2017-10-11 17:42 | Internal Med Progress Note ---
Subjective Date of Service: Oct 11, 2017 Physician Name David Kent Attending Physician Dalila Reyes MD Current Medications Medications (Trade) Dose Ordered Sig/Richardson Route PRN Reason Start Time Stop Time Status Last Admin Dose Admin Acetaminophen (Tylenol) 650 mg Q6H PRN ORAL Mild Pain/Temp > 100.5 10/09/17 22:15 11/08/17 22:14 10/10/17 14:51 Heparin Sodium (Porcine) (Heparin 5000 units/ml) 5,000 units EVERY 12 HOURS SUBQ 10/09/17 22:15 11/08/17 22:14 10/11/17 08:45 Metoprolol Tartrate (Lopressor) 12.5 mg Q12HR ORAL 10/09/17 22:15 11/08/17 22:14 10/11/17 08:43 Pantoprazole (Protonix) 40 mg DAILY ORAL 10/10/17 09:00 11/09/17 08:59 10/11/17 08:43 Allergies: Coded Allergies: No Known Allergies (Unverified , 06/09/16) ROS Limited/Unobtainable: No Constitutional: Reports: malaise, weakness HEENT: Reports: no symptoms Cardiovascular: Reports: no symptoms Respiratory: Reports: no symptoms Gastrointestinal/Abdominal: Reports: no symptoms Genitourinary: Reports: no symptoms Neurologic/Psychiatric: Reports: no symptoms Subjective 77 YO F with history of cecal cancer admitted with gen weakness. Now probable metastatic colon cancer. Cover for Int Med-Dr Reyes Objective Last Vital Signs Date Time Temp Pulse Resp B/P (MAP) Pulse Ox O2 Delivery O2 Flow Rate FiO2 10/11/17 16:00 98.8 90 18 134/58 98 98.8 10/11/17 12:28 Room Air General Appearance: mild distress, thin EENT: PERRL/EOMI, normal ENT inspection, TMs normal Neck: non-tender, normal alignment, supple Cardiovascular: normal peripheral pulses, normal rate, regular rhythm, no gallop/murmur, no JVD Respiratory/Chest: chest wall non-tender, decreased breath sounds, crackles/ rales, rhonchi - bilaterally Abdomen: soft, decreased bowel sounds, distended Extremities: normal range of motion, non-tender 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, no motor/sensory deficits Skin: normal pigmentation, warm/dry Laboratory Tests Test 10/11/17 05:05 10/11/17 14:30 White Blood Count 10.1 K/UL (4.8-10.8) Red Blood Count 4.07 M/UL (4.20-5.40) L Hemoglobin 10.9 G/DL (12.0-16.0) L Hematocrit 32.4 % (37.0-47.0) L Mean Corpuscular Volume 80 FL (80-99) Mean Corpuscular Hemoglobin 26.9 PG (27.0-31.0) L Mean Corpuscular Hemoglobin Concent 33.7 G/DL (32.0-36.0) Red Cell Distribution Width 14.4 % (11.6-14.8) Platelet Count 408 K/UL (150-450) Mean Platelet Volume 5.3 FL (6.5-10.1) L Neutrophils (%) (Auto) 74.8 % (45.0-75.0) Lymphocytes (%) (Auto) 15.6 % (20.0-45.0) L Monocytes (%) (Auto) 7.8 % (1.0-10.0) Eosinophils (%) (Auto) 0.9 % (0.0-3.0) Basophils (%) (Auto) 0.9 % (0.0-2.0) Sodium Level 131 MMOL/L (136-145) L Potassium Level 4.1 MMOL/L (3.5-5.1) Chloride Level 95 MMOL/L (98-107) L Carbon Dioxide Level 26 MMOL/L (21-32) Anion Gap 11 mmol/L (5-15) Blood Urea Nitrogen 5 mg/dL (7-18) L Creatinine 0.6 MG/DL (0.55-1.30) Estimat Glomerular Filtration Rate mL/min (>60) Glucose Level 84 MG/DL (74-106) Calcium Level 7.9 MG/DL (8.5-10.1) L Total Bilirubin 0.4 MG/DL (0.2-1.0) Aspartate Amino Transf (AST/SGOT) 63 U/L (15-37) H Alanine Aminotransferase (ALT/SGPT) 11 U/L (12-78) L Alkaline Phosphatase 59 U/L (46-116) Total Protein 7.4 G/DL (6.4-8.2) Albumin 2.4 G/DL (3.4-5.0) L Globulin 5.0 g/dL Albumin/Globulin Ratio 0.5 (1.0-2.7) L Stool Occult Blood Pending Intake and Output 10/10/17 10/11/17 19:00 07:00 Intake Total 800 ml 240 ml Balance 800 ml 240 ml Intake Oral 800 ml 240 ml # Voids 3 1 # Bowel Movements 1 Assessment/Plan Problem List: (1) HTN (hypertension) Assessment & Plan: Continue metoprolol (2) Malnutrition (3) Elevated liver function tests (4) Colon cancer Assessment & Plan: H/O adenocarcinoma of cecum. See Oncology note. (5) Weakness (6) Hyponatremia (7) Anemia (8) Pulmonary metastases Assessment & Plan: Probable colon adenocarcinoma mets (9) Carcinomatosis peritonei Assessment & Plan: Probable colon adenocarcinoma mets DAVID KENT Oct 11, 2017 17:42
[2017-10-11 20:00] VITALS: BP 154/73
--- NOTE | 2017-10-11 23:34 | General Progress Note ---
Assessment/Plan Assessment/Plan 1. 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 --> At this time, the patient is currently fatigued and weak, likely due to underlying malignancy. --> We will need to discuss with her in regards to treatment versus palliation. --> We will need to also discuss with primary physician. --> Ca 15-3 10.2, Ca 125 293. Reviewed. 2. Anemia of iron deficiency. --> Continue to closely monitor. --> Anemia workup reviewed. --> Iron 17, TIBC 177. --> Blood transfusion not required unless symptomatic or hgb <7 --> ++Occult blood, followup and recs by GI service 3. Transaminitis, has been seen by GI Service. 4. Weakness and fatigue, likely due to metastatic cancer, stage IV. 5. Malnourishment due to cancer, remains cachetic. 6. Hypertension. Systolic blood pressure goal less than 140. Subjective Date patient seen: Oct 11, 2017 Allergies: Coded Allergies: No Known Allergies (Unverified , 06/09/16) Subjective H/H stable. ++Hematochezia. Objective Last 24 Hour Vital Signs Date Time Temp Pulse Resp B/P (MAP) Pulse Ox O2 Delivery O2 Flow Rate FiO2 10/11/17 20:38 94 154/73 10/11/17 20:00 98.2 94 20 154/73 98 Room Air 98.2 10/11/17 16:00 98.8 90 18 134/58 98 98.8 10/11/17 12:28 97.0 87 15 122/66 100 Room Air 97.0 10/11/17 08:44 99.3 99 14 139/75 100 Room Air 99.3 10/11/17 08:43 107 128/63 10/11/17 04:19 98.1 107 20 128/63 98 98.1 10/10/17 23:55 97.9 90 18 134/70 97 97.9 Intake and Output 10/10/17 10/11/17 19:00 07:00 Intake Total 800 ml 240 ml Balance 800 ml 240 ml Intake Oral 800 ml 240 ml # Voids 3 1 # Bowel Movements 1 Laboratory Tests 10/11/17 05:05: White Blood Count 10.1, Red Blood Count 4.07L, Hemoglobin 10.9L, Hematocrit 32.4L, Mean Corpuscular Volume 80, Mean Corpuscular Hemoglobin 26.9L, Mean Corpuscular Hemoglobin Concent 33.7, Red Cell Distribution Width 14.4, Platelet Count 408, Mean Platelet Volume 5.3L, Neutrophils (%) (Auto) 74.8, Lymphocytes ( %) (Auto) 15.6L, Monocytes (%) (Auto) 7.8, Eosinophils (%) (Auto) 0.9, Basophils (%) (Auto) 0.9, Sodium Level 131L, Potassium Level 4.1, Chloride Level 95L, Carbon Dioxide Level 26, Anion Gap 11, Blood Urea Nitrogen 5L, Creatinine 0.6, Estimat Glomerular Filtration Rate , Glucose Level 84, Calcium Level 7.9L, Total Bilirubin 0.4, Aspartate Amino Transf (AST/SGOT) 63H, Alanine Aminotransferase (ALT/SGPT) 11L, Alkaline Phosphatase 59, Total Protein 7.4, Albumin 2.4L, Globulin 5.0, Albumin/Globulin Ratio 0.5L 10/11/17 14:30: Stool Occult Blood [Pending] Height (Feet): 5 Height (Inches): 2.00 Weight (Pounds): 130 General Appearance: no apparent distress, cachetic Respiratory/Chest: decreased breath sounds Abdomen: soft Edema: trace edema Casa Pascal MD Oct 11, 2017 23:34
[2017-10-12] VITALS: BP 109/54
[2017-10-12 04:00] VITALS: BP 120/64
--- NOTE | 2017-10-12 07:42 | General Progress Note ---
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 - Secondary malignant neoplasm of retroperitoneum and peritoneum; C80.1 - Malignant (primary) neoplasm, unspecified SNOMED: 087304987, 362327724 (7) Pulmonary metastases ICD Codes: C78.00 - Secondary malignant neoplasm of unspecified lung SNOMED: 43016028, 328639567 Qualifiers: Qualified Codes: C78.00 - Secondary malignant neoplasm of unspecified lung Assessment/Plan poor po intake stool ob positive 1/2 had BM fu labs no plan for any GI procedures at this time fu oncology recs Subjective ROS Limited/Unobtainable: Yes Allergies: Coded Allergies: No Known Allergies (Unverified , 06/09/16) Subjective no event Objective Last 24 Hour Vital Signs Date Time Temp Pulse Resp B/P (MAP) Pulse Ox O2 Delivery O2 Flow Rate FiO2 10/12/17 04:00 98.1 82 16 120/64 98.1 10/12/17 00:00 98.8 87 18 109/54 96 Room Air 98.8 10/11/17 20:38 94 154/73 10/11/17 20:00 98.2 94 20 154/73 98 Room Air 98.2 10/11/17 16:00 98.8 90 18 134/58 98 98.8 10/11/17 12:28 97.0 87 15 122/66 100 Room Air 97.0 10/11/17 08:44 99.3 99 14 139/75 100 Room Air 99.3 10/11/17 08:43 107 128/63 Intake and Output 10/11/17 10/12/17 19:00 07:00 Intake Total 790 ml Balance 790 ml Intake Oral 790 ml # Voids 2 1 # Bowel Movements 1 Laboratory Tests 10/11/17 14:30: Stool Occult Blood Negative Height (Feet): 5 Height (Inches): 2.00 Weight (Pounds): 130 General Appearance: no apparent distress EENT: normal ENT inspection Neck: supple Cardiovascular: normal rate Respiratory/Chest: decreased breath sounds Abdomen: normal bowel sounds, non tender, soft Extremities: non-tender MANDA TSANG Oct 12, 2017 07:42
[2017-10-12 08:00] VITALS: BP 137/73
[2017-10-12 09:05] LABS: BASOPHILS % (AUTO) 0.8 % (0.0-2.0); EOSINOPHILS % (AUTO) 1.9 % (0.0-3.0); HEMOGLOBIN 10.9 G/DL (12.0-16.0); LYMPHOCYTES % (AUTO) 24.1 % (20.0-45.0); MEAN CORPUSCULAR VOLUME 81 FL (80-99); MONOCYTES % (AUTO) 8.8 % (1.0-10.0); NEUTROPHILS % (AUTO) 64.4 % (45.0-75.0); PLATELET COUNT 413 K/UL (150-450); RED BLOOD COUNT 4.08 M/UL (4.20-5.40); RED CELL DISTRIBUTION WIDTH 14.8 % (11.6-14.8); WHITE BLOOD COUNT 7.7 K/UL (4.8-10.8)
[2017-10-12] MEDS: Metoprolol Tartrate 12.5mg TAB ORAL SCH ×2 (09:27→20:58)
[2017-10-12] MEDS: Heparin 5000 units/ml inj SUBQ SCH ×2 (09:29→21:06)
[2017-10-12 09:31] LABS: ALANINE AMINOTRANSFERASE 10 U/L (12-78); ALBUMIN 2.4 G/DL (3.4-5.0); ALBUMIN/GLOBULIN RATIO 0.5 (1.0-2.7); ALKALINE PHOSPHATASE 64 U/L (46-116); ANION GAP 8 mmol/L (5-15); ASPARTATE AMINO TRANSFERASE 66 U/L (15-37); BILIRUBIN,TOTAL 0.4 MG/DL (0.2-1.0); BLOOD UREA NITROGEN 6 mg/dL (7-18); CARBON DIOXIDE 28 MMOL/L (21-32); CHLORIDE 96 MMOL/L (98-107); CREATININE 0.6 MG/DL (0.55-1.30); POTASSIUM 3.8 MMOL/L (3.5-5.1); SODIUM 132 MMOL/L (136-145)
[2017-10-12 12:00] VITALS: BP 133/62
--- NOTE | 2017-10-12 14:11 | Internal Med Progress Note ---
Subjective Date of Service: Oct 12, 2017 Physician Name David Kent Attending Physician Dalila Reyes MD Current Medications Medications (Trade) Dose Ordered Sig/Richardson Route PRN Reason Start Time Stop Time Status Last Admin Dose Admin Acetaminophen (Tylenol) 650 mg Q6H PRN ORAL Mild Pain/Temp > 100.5 10/09/17 22:15 11/08/17 22:14 10/10/17 14:51 Heparin Sodium (Porcine) (Heparin 5000 units/ml) 5,000 units EVERY 12 HOURS SUBQ 10/09/17 22:15 11/08/17 22:14 10/12/17 09:29 Metoprolol Tartrate (Lopressor) 12.5 mg Q12HR ORAL 10/09/17 22:15 11/08/17 22:14 10/12/17 09:27 Pantoprazole (Protonix) 40 mg DAILY ORAL 10/10/17 09:00 11/09/17 08:59 10/12/17 09:27 Allergies: Coded Allergies: No Known Allergies (Unverified , 06/09/16) ROS Limited/Unobtainable: No Constitutional: Reports: malaise, weakness HEENT: Reports: no symptoms Cardiovascular: Reports: no symptoms Respiratory: Reports: no symptoms Gastrointestinal/Abdominal: Reports: abdomen distended, abdominal pain Genitourinary: Reports: no symptoms Neurologic/Psychiatric: Reports: no symptoms Subjective 77 YO F with history of cecal cancer admitted with gen weakness. Now probable metastatic colon cancer. Cover for Int Med-Dr Reyes Objective Last Vital Signs Date Time Temp Pulse Resp B/P (MAP) Pulse Ox O2 Delivery O2 Flow Rate FiO2 10/12/17 12:00 98.1 83 19 133/62 98 98.1 10/12/17 00:00 Room Air Laboratory Tests Test 10/11/17 14:30 10/12/17 06:40 Stool Occult Blood Negative (NEGATIVE) White Blood Count 7.7 K/UL (4.8-10.8) Red Blood Count 4.08 M/UL (4.20-5.40) L Hemoglobin 10.9 G/DL (12.0-16.0) L Hematocrit 33.0 % (37.0-47.0) L Mean Corpuscular Volume 81 FL (80-99) Mean Corpuscular Hemoglobin 26.8 PG (27.0-31.0) L Mean Corpuscular Hemoglobin Concent 33.1 G/DL (32.0-36.0) Red Cell Distribution Width 14.8 % (11.6-14.8) Platelet Count 413 K/UL (150-450) Mean Platelet Volume 5.2 FL (6.5-10.1) L Neutrophils (%) (Auto) 64.4 % (45.0-75.0) Lymphocytes (%) (Auto) 24.1 % (20.0-45.0) Monocytes (%) (Auto) 8.8 % (1.0-10.0) Eosinophils (%) (Auto) 1.9 % (0.0-3.0) Basophils (%) (Auto) 0.8 % (0.0-2.0) Sodium Level 132 MMOL/L (136-145) L Potassium Level 3.8 MMOL/L (3.5-5.1) Chloride Level 96 MMOL/L (98-107) L Carbon Dioxide Level 28 MMOL/L (21-32) Anion Gap 8 mmol/L (5-15) Blood Urea Nitrogen 6 mg/dL (7-18) L Creatinine 0.6 MG/DL (0.55-1.30) Estimat Glomerular Filtration Rate mL/min (>60) Glucose Level 86 MG/DL (74-106) Calcium Level 8.0 MG/DL (8.5-10.1) L Total Bilirubin 0.4 MG/DL (0.2-1.0) Aspartate Amino Transf (AST/SGOT) 66 U/L (15-37) H Alanine Aminotransferase (ALT/SGPT) 10 U/L (12-78) L Alkaline Phosphatase 64 U/L (46-116) Total Protein 7.5 G/DL (6.4-8.2) Albumin 2.4 G/DL (3.4-5.0) L Globulin 5.1 g/dL Albumin/Globulin Ratio 0.5 (1.0-2.7) L Intake and Output 10/11/17 10/12/17 19:00 07:00 Intake Total 790 ml Balance 790 ml Intake Oral 790 ml # Voids 2 1 # Bowel Movements 1 Objective General Appearance: mild distress, thin EENT: PERRL/EOMI, normal ENT inspection, TMs normal Neck: non-tender, normal alignment, supple Cardiovascular: normal peripheral pulses, normal rate, regular rhythm, no gallop/murmur, no JVD Respiratory/Chest: chest wall non-tender, decreased breath sounds, crackles/ rales, rhonchi - bilaterally Abdomen: soft, decreased bowel sounds, distended Extremities: normal range of motion, non-tender 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 See Oncology note. (5) Weakness (6) Hyponatremia (7) Anemia (8) Pulmonary metastases Assessment & Plan: Probable colon adenocarcinoma mets (9) Carcinomatosis peritonei Assessment & Plan: Probable colon adenocarcinoma mets DAVID KENT Oct 12, 2017 14:11
[2017-10-12 16:00] VITALS: BP 140/67
[2017-10-12 20:00] VITALS: BP 146/75
[2017-10-13] VITALS: BP 121/61
[2017-10-13 04:00] VITALS: BP 134/73
[2017-10-13 07:29] LABS: EOSINOPHILS % (AUTO) 1.7 % (0.0-3.0); HEMATOCRIT 32.4 % (37.0-47.0); HEMOGLOBIN 10.7 G/DL (12.0-16.0); LYMPHOCYTES % (AUTO) 24.1 % (20.0-45.0); MEAN CORPUSCULAR VOLUME 81 FL (80-99); MONOCYTES % (AUTO) 7.4 % (1.0-10.0); NEUTROPHILS % (AUTO) 65.8 % (45.0-75.0); PLATELET COUNT 398 K/UL (150-450); RED BLOOD COUNT 4.01 M/UL (4.20-5.40); RED CELL DISTRIBUTION WIDTH 14.6 % (11.6-14.8); WHITE BLOOD COUNT 9.4 K/UL (4.8-10.8)
[2017-10-13 07:40] LABS: ANION GAP 10 mmol/L (5-15); BLOOD UREA NITROGEN 6 mg/dL (7-18); CARBON DIOXIDE 28 MMOL/L (21-32); CHLORIDE 97 MMOL/L (98-107); CREATININE 0.5 MG/DL (0.55-1.30); POTASSIUM 3.9 MMOL/L (3.5-5.1); SODIUM 135 MMOL/L (136-145)
--- NOTE | 2017-10-13 07:58 | General Progress Note ---
Assessment/Plan Problem List: (1) Lung nodules ICD Codes: R91.8 - Other nonspecific abnormal finding of lung field SNOMED: 762563856 (2) Colon cancer ICD Codes: C18.9 - Malignant neoplasm of colon, unspecified SNOMED: 841491978 (3) Weakness ICD Codes: R53.1 - Weakness; C80.1 - Malignant (primary) neoplasm, unspecified SNOMED: 29509882, 347718854 (4) Anemia ICD Codes: D64.9 - Anemia, unspecified SNOMED: 015052935 (5) Iron deficiency ICD Codes: E61.1 - Iron deficiency SNOMED: 68497312 (6) Carcinomatosis peritonei ICD Codes: C78.6 - Secondary malignant neoplasm of retroperitoneum and peritoneum; C80.1 - Malignant (primary) neoplasm, unspecified SNOMED: 751363473, 613552742 (7) Pulmonary metastases ICD Codes: C78.00 - Secondary malignant neoplasm of unspecified lung SNOMED: 03211738, 954586665 Qualifiers: Qualified Codes: C78.00 - Secondary malignant neoplasm of unspecified lung Assessment/Plan poor po intake stool ob positive 1/2 had BM fu labs no plan for any GI procedures at this time fu oncology recs Subjective ROS Limited/Unobtainable: Yes Allergies: Coded Allergies: No Known Allergies (Unverified , 06/09/16) Subjective no event Objective Last 24 Hour Vital Signs Date Time Temp Pulse Resp B/P (MAP) Pulse Ox O2 Delivery O2 Flow Rate FiO2 10/13/17 04:00 98.1 82 19 134/73 99 98.1 10/13/17 00:00 97.3 81 19 121/61 98 97.3 10/12/17 20:58 82 140/67 10/12/17 20:00 98.6 95 20 146/75 98 98.6 10/12/17 16:00 98.4 82 18 140/67 98 98.4 10/12/17 12:00 98.1 83 19 133/62 98 98.1 10/12/17 09:27 99 137/73 10/12/17 08:00 97.7 99 19 137/73 99 97.7 Intake and Output 10/12/17 10/13/17 19:00 07:00 Intake Total 240 ml Balance 240 ml Intake Oral 240 ml # Voids 3 5 # Bowel Movements 3 Laboratory Tests 10/12/17 20:00: Stool Occult Blood [Pending] 10/13/17 04:40: White Blood Count 9.4, Red Blood Count 4.01L, Hemoglobin 10.7L, Hematocrit 32.4L , Mean Corpuscular Volume 81, Mean Corpuscular Hemoglobin 26.7L, Mean Corpuscular Hemoglobin Concent 33.1, Red Cell Distribution Width 14.6, Platelet Count 398, Mean Platelet Volume 5.0L, Neutrophils (%) (Auto) 65.8, Lymphocytes ( %) (Auto) 24.1, Monocytes (%) (Auto) 7.4, Eosinophils (%) (Auto) 1.7, Basophils (%) (Auto) 1.0, Sodium Level 135L, Potassium Level 3.9, Chloride Level 97L, Carbon Dioxide Level 28, Anion Gap 10, Blood Urea Nitrogen 6L, Creatinine 0.5L, Estimat Glomerular Filtration Rate , Glucose Level 81, Calcium Level 8.0L Height (Feet): 5 Height (Inches): 2.00 Weight (Pounds): 130 General Appearance: no apparent distress EENT: normal ENT inspection Neck: supple Cardiovascular: normal rate Respiratory/Chest: decreased breath sounds Abdomen: normal bowel sounds, non tender, soft Extremities: non-tender MANDA TSANG Oct 13, 2017 07:58
[2017-10-13 08:00] VITALS: BP 131/79
[2017-10-13] MEDS: Metoprolol Tartrate 12.5mg TAB ORAL SCH ×2 (08:15→20:24)
[2017-10-13] MEDS: Heparin 5000 units/ml inj SUBQ SCH ×2 (08:17→20:31)
[2017-10-13] MEDS ORDERED: D5NS 1000ml IV ONE (10:08)
--- NOTE | 2017-10-13 11:19 | Internal Med Progress Note ---
Subjective Date of Service: Oct 13, 2017 Physician Name Dos SantosDavid martinez Attending Physician Dalila Reyes MD Current Medications Medications (Trade) Dose Ordered Sig/Richardson Route PRN Reason Start Time Stop Time Status Last Admin Dose Admin Acetaminophen (Tylenol) 650 mg Q6H PRN ORAL Mild Pain/Temp > 100.5 10/09/17 22:15 11/08/17 22:14 10/10/17 14:51 Heparin Sodium (Porcine) (Heparin 5000 units/ml) 5,000 units EVERY 12 HOURS SUBQ 10/09/17 22:15 11/08/17 22:14 10/13/17 08:17 Metoprolol Tartrate (Lopressor) 12.5 mg Q12HR ORAL 10/09/17 22:15 11/08/17 22:14 10/13/17 08:15 Pantoprazole (Protonix) 40 mg DAILY ORAL 10/10/17 09:00 11/09/17 08:59 10/13/17 08:15 Allergies: Coded Allergies: No Known Allergies (Unverified , 06/09/16) ROS Limited/Unobtainable: No Constitutional: Reports: no symptoms HEENT: Reports: no symptoms Cardiovascular: Reports: no symptoms Respiratory: Reports: no symptoms Gastrointestinal/Abdominal: Reports: no symptoms Genitourinary: Reports: no symptoms Neurologic/Psychiatric: Reports: no symptoms Subjective 77 YO F with history of cecal cancer admitted with gen weakness. Now probable metastatic colon cancer. Cover for Int Med-Dr Reyes. Ambulates without assistance. Objective Last Vital Signs Date Time Temp Pulse Resp B/P (MAP) Pulse Ox O2 Delivery O2 Flow Rate FiO2 10/13/17 08:15 85 131/70 10/13/17 08:00 97.7 18 99 97.7 10/12/17 00:00 Room Air Laboratory Tests Test 10/12/17 20:00 10/13/17 04:40 Stool Occult Blood Pending White Blood Count 9.4 K/UL (4.8-10.8) Red Blood Count 4.01 M/UL (4.20-5.40) L Hemoglobin 10.7 G/DL (12.0-16.0) L Hematocrit 32.4 % (37.0-47.0) L Mean Corpuscular Volume 81 FL (80-99) Mean Corpuscular Hemoglobin 26.7 PG (27.0-31.0) L Mean Corpuscular Hemoglobin Concent 33.1 G/DL (32.0-36.0) Red Cell Distribution Width 14.6 % (11.6-14.8) Platelet Count 398 K/UL (150-450) Mean Platelet Volume 5.0 FL (6.5-10.1) L Neutrophils (%) (Auto) 65.8 % (45.0-75.0) Lymphocytes (%) (Auto) 24.1 % (20.0-45.0) Monocytes (%) (Auto) 7.4 % (1.0-10.0) Eosinophils (%) (Auto) 1.7 % (0.0-3.0) Basophils (%) (Auto) 1.0 % (0.0-2.0) Sodium Level 135 MMOL/L (136-145) L Potassium Level 3.9 MMOL/L (3.5-5.1) Chloride Level 97 MMOL/L (98-107) L Carbon Dioxide Level 28 MMOL/L (21-32) Anion Gap 10 mmol/L (5-15) Blood Urea Nitrogen 6 mg/dL (7-18) L Creatinine 0.5 MG/DL (0.55-1.30) L Estimat Glomerular Filtration Rate mL/min (>60) Glucose Level 81 MG/DL (74-106) Calcium Level 8.0 MG/DL (8.5-10.1) L Intake and Output 10/12/17 10/13/17 19:00 07:00 Intake Total 240 ml Balance 240 ml Intake Oral 240 ml # Voids 3 5 # Bowel Movements 3 Objective General Appearance: mild distress, thin EENT: PERRL/EOMI, normal ENT inspection, TMs normal Neck: non-tender, normal alignment, supple Cardiovascular: normal peripheral pulses, normal rate, regular rhythm, no gallop/murmur, no JVD Respiratory/Chest: chest wall non-tender, decreased breath sounds, crackles/ rales, rhonchi - bilaterally Abdomen: soft, decreased bowel sounds, distended Extremities: normal range of motion, non-tender 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 See Oncology note. (5) Weakness (6) Hyponatremia (7) Anemia (8) Pulmonary metastases Assessment & Plan: Probable colon adenocarcinoma mets (9) Carcinomatosis peritonei Assessment & Plan: Probable colon adenocarcinoma mets Assessment/Plan Discharge planning DAVID DOS SANTOS Oct 13, 2017 11:19
[2017-10-13 12:00] VITALS: BP 134/68
--- NOTE | 2017-10-13 12:02 | General Progress Note ---
Assessment/Plan Assessment/Plan 1. 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 Reviewed. 2. Anemia of iron deficiency. --> Continue to closely monitor. --> Anemia workup reviewed. --> Iron 17, TIBC 177. --> Blood transfusion not required unless symptomatic or hgb <7 --> ++Occult blood, followup and recs by GI service 3. Transaminitis, has been seen by GI Service. 4. Weakness and fatigue, likely due to metastatic cancer, stage IV. 5. Malnourishment due to cancer, remains cachetic. 6. Hypertension. Systolic blood pressure goal less than 140. Subjective Date patient seen: Oct 12, 2017 Constitutional: Denies: no symptoms, chills, diaphoresis, fever, malaise, weakness, other HEENT: Denies: no symptoms, eye pain, blurred vision, tearing, double vision, ear pain, ear discharge, nose pain, nose congestion, throat pain, throat swelling, mouth pain, mouth swelling, other Cardiovascular: Denies: no symptoms, chest pain, edema, irregular heart rate, lightheadedness, palpitations, syncope, other Respiratory: Denies: no symptoms, cough, orthopnea, shortness of breath, SOB with excertion, SOB at rest, sputum, stridor, wheezing, other Gastrointestinal/Abdominal: Denies: no symptoms, abdomen distended, abdominal pain, black stools, tarry stools, blood in stool, constipated, diarrhea, difficulty swallowing, nausea, poor appetite, poor fluid intake, rectal bleeding , vomiting, other Genitourinary: Denies: no symptoms, burning, discharge, frequency, flank pain, hematuria, incontinence, pain, urgency, other Neurologic/Psychiatric: Denies: no symptoms, anxiety, depressed, emotional problems, headache, numbness, paresthesia, pre-existing deficit, seizure, tingling, tremors, weakness, other Endocrine: Denies: no symptoms, excessive sweating, flushing, intolerance to cold, intolerance to heat, increased hunger, increased thirst, increased urine, unexplained weight gain, unexplained weight loss, other Allergies: Coded Allergies: No Known Allergies (Unverified , 06/09/16) Subjective H/H stable. ++Hematochezia. Objective Last 24 Hour Vital Signs Date Time Temp Pulse Resp B/P (MAP) Pulse Ox O2 Delivery O2 Flow Rate FiO2 10/13/17 08:15 85 131/70 10/13/17 08:00 97.7 83 18 131/79 99 97.7 10/13/17 04:00 98.1 82 19 134/73 99 98.1 10/13/17 00:00 97.3 81 19 121/61 98 97.3 10/12/17 20:58 82 140/67 10/12/17 20:00 98.6 95 20 146/75 98 98.6 10/12/17 16:00 98.4 82 18 140/67 98 98.4 Intake and Output 10/12/17 10/13/17 19:00 07:00 Intake Total 240 ml Balance 240 ml Intake Oral 240 ml # Voids 3 5 # Bowel Movements 3 Laboratory Tests 10/12/17 20:00: Stool Occult Blood [Pending] 10/13/17 04:40: White Blood Count 9.4, Red Blood Count 4.01L, Hemoglobin 10.7L, Hematocrit 32.4L , Mean Corpuscular Volume 81, Mean Corpuscular Hemoglobin 26.7L, Mean Corpuscular Hemoglobin Concent 33.1, Red Cell Distribution Width 14.6, Platelet Count 398, Mean Platelet Volume 5.0L, Neutrophils (%) (Auto) 65.8, Lymphocytes ( %) (Auto) 24.1, Monocytes (%) (Auto) 7.4, Eosinophils (%) (Auto) 1.7, Basophils (%) (Auto) 1.0, Sodium Level 135L, Potassium Level 3.9, Chloride Level 97L, Carbon Dioxide Level 28, Anion Gap 10, Blood Urea Nitrogen 6L, Creatinine 0.5L, Estimat Glomerular Filtration Rate , Glucose Level 81, Calcium Level 8.0L Height (Feet): 5 Height (Inches): 2.00 Weight (Pounds): 130 General Appearance: alert EENT: normal ENT inspection Neck: supple Cardiovascular: regular rhythm Respiratory/Chest: normal breath sounds Abdomen: soft Extremities: normal range of motion Edema: 1+ Leg (L), 1+ Leg (R) Edema: mild edema Neurologic: alert Skin: normal pigmentation Casa Pascal MD Oct 13, 2017 12:02
[2017-10-13 16:00] VITALS: BP 140/75
[2017-10-13 20:00] VITALS: BP 149/74
[2017-10-14] VITALS: BP 145/71
--- NOTE | 2017-10-14 00:52 | General Progress Note ---
Assessment/Plan Assessment/Plan 1. 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 Reviewed. 2. Anemia of iron deficiency. --> Continue to closely monitor. --> Anemia workup reviewed. --> Iron 17, TIBC 177. --> Blood transfusion not required unless symptomatic or hgb <7 --> ++Occult blood, followup and recs by GI service 3. Transaminitis, has been seen by GI Service. 4. Weakness and fatigue, likely due to metastatic cancer, stage IV. 5. Malnourishment due to cancer, remains cachetic. 6. Hypertension. Systolic blood pressure goal less than 140. Subjective Date patient seen: Oct 13, 2017 Constitutional: Denies: no symptoms, chills, diaphoresis, fever, malaise, weakness, other HEENT: Denies: no symptoms, eye pain, blurred vision, tearing, double vision, ear pain, ear discharge, nose pain, nose congestion, throat pain, throat swelling, mouth pain, mouth swelling, other Cardiovascular: Denies: no symptoms, chest pain, edema, irregular heart rate, lightheadedness, palpitations, syncope, other Respiratory: Denies: no symptoms, cough, orthopnea, shortness of breath, SOB with excertion, SOB at rest, sputum, stridor, wheezing, other Gastrointestinal/Abdominal: Denies: no symptoms, abdomen distended, abdominal pain, black stools, tarry stools, blood in stool, constipated, diarrhea, difficulty swallowing, nausea, poor appetite, poor fluid intake, rectal bleeding , vomiting, other Genitourinary: Denies: no symptoms, burning, discharge, frequency, flank pain, hematuria, incontinence, pain, urgency, other Neurologic/Psychiatric: Denies: no symptoms, anxiety, depressed, emotional problems, headache, numbness, paresthesia, pre-existing deficit, seizure, tingling, tremors, weakness, other Hematologic/Lymphatic: Reports: anemia Allergies: Coded Allergies: No Known Allergies (Unverified , 06/09/16) Subjective Occult blood positive. H/H stable. Objective Last 24 Hour Vital Signs Date Time Temp Pulse Resp B/P (MAP) Pulse Ox O2 Delivery O2 Flow Rate FiO2 10/14/17 00:00 98.0 89 20 145/71 97 Room Air 98.0 10/13/17 20:24 91 149/74 10/13/17 20:00 98.1 91 19 149/74 98 Room Air 98.1 10/13/17 16:00 98.8 85 18 140/75 98 98.8 10/13/17 12:00 99.0 74 18 134/68 99 99.0 10/13/17 08:15 85 131/70 10/13/17 08:00 97.7 83 18 131/79 99 97.7 10/13/17 04:00 98.1 82 19 134/73 99 98.1 Intake and Output 10/13/17 10/14/17 19:00 07:00 Intake Total 480 ml Balance 480 ml Intake Oral 480 ml Laboratory Tests 10/13/17 04:40: White Blood Count 9.4, Red Blood Count 4.01L, Hemoglobin 10.7L, Hematocrit 32.4L , Mean Corpuscular Volume 81, Mean Corpuscular Hemoglobin 26.7L, Mean Corpuscular Hemoglobin Concent 33.1, Red Cell Distribution Width 14.6, Platelet Count 398, Mean Platelet Volume 5.0L, Neutrophils (%) (Auto) 65.8, Lymphocytes ( %) (Auto) 24.1, Monocytes (%) (Auto) 7.4, Eosinophils (%) (Auto) 1.7, Basophils (%) (Auto) 1.0, Sodium Level 135L, Potassium Level 3.9, Chloride Level 97L, Carbon Dioxide Level 28, Anion Gap 10, Blood Urea Nitrogen 6L, Creatinine 0.5L, Estimat Glomerular Filtration Rate , Glucose Level 81, Calcium Level 8.0L Height (Feet): 5 Height (Inches): 2.00 Weight (Pounds): 130 General Appearance: confused Respiratory/Chest: decreased breath sounds Abdomen: soft Casa Pascal MD Oct 14, 2017 00:52
[2017-10-14 04:12] VITALS: BP 143/68
[2017-10-14 06:43] LABS: BASOPHILS % (AUTO) 1.3 % (0.0-2.0); EOSINOPHILS % (AUTO) 1.1 % (0.0-3.0); HEMATOCRIT 33.6 % (37.0-47.0); HEMOGLOBIN 10.9 G/DL (12.0-16.0); LYMPHOCYTES % (AUTO) 26.9 % (20.0-45.0); MEAN CORPUSCULAR VOLUME 82 FL (80-99); MONOCYTES % (AUTO) 6.4 % (1.0-10.0); NEUTROPHILS % (AUTO) 64.3 % (45.0-75.0); PLATELET COUNT 435 K/UL (150-450); RED BLOOD COUNT 4.11 M/UL (4.20-5.40); RED CELL DISTRIBUTION WIDTH 14.8 % (11.6-14.8); WHITE BLOOD COUNT 9.8 K/UL (4.8-10.8)
[2017-10-14 07:28] LABS: ANION GAP 8 mmol/L (5-15); BLOOD UREA NITROGEN 5 mg/dL (7-18); CALCIUM 8.2 MG/DL (8.5-10.1); CARBON DIOXIDE 29 MMOL/L (21-32); CHLORIDE 98 MMOL/L (98-107); CREATININE 0.6 MG/DL (0.55-1.30); POTASSIUM 3.8 MMOL/L (3.5-5.1); SODIUM 135 MMOL/L (136-145)
[2017-10-14 08:00] VITALS: BP 137/75
[2017-10-14] MEDS: Metoprolol Tartrate 12.5mg TAB ORAL SCH (08:42)
[2017-10-14] MEDS: Heparin 5000 units/ml inj SUBQ SCH (08:44)
--- NOTE | 2017-10-14 09:34 | General Progress Note ---
Assessment/Plan Problem List: (1) Lung nodules ICD Codes: R91.8 - Other nonspecific abnormal finding of lung field SNOMED: 862727979 (2) Colon cancer ICD Codes: C18.9 - Malignant neoplasm of colon, unspecified SNOMED: 115157151 (3) Weakness ICD Codes: R53.1 - Weakness; C80.1 - Malignant (primary) neoplasm, unspecified SNOMED: 08728619, 861827267 (4) Anemia ICD Codes: D64.9 - Anemia, unspecified SNOMED: 197538868 (5) Iron deficiency ICD Codes: E61.1 - Iron deficiency SNOMED: 21953096 (6) Carcinomatosis peritonei ICD Codes: C78.6 - Secondary malignant neoplasm of retroperitoneum and peritoneum; C80.1 - Malignant (primary) neoplasm, unspecified SNOMED: 060756361, 866881207 (7) Pulmonary metastases ICD Codes: C78.00 - Secondary malignant neoplasm of unspecified lung SNOMED: 77340056, 268541695 Qualifiers: Qualified Codes: C78.00 - Secondary malignant neoplasm of unspecified lung Assessment/Plan poor po intake stool ob positive 2/3 but stable H&H had BM fu labs no plan for any GI procedures at this time given stable H&H and metastatic cancer fu oncology recs Subjective ROS Limited/Unobtainable: Yes Allergies: Coded Allergies: No Known Allergies (Unverified , 06/09/16) Subjective no event Objective Last 24 Hour Vital Signs Date Time Temp Pulse Resp B/P (MAP) Pulse Ox O2 Delivery O2 Flow Rate FiO2 10/14/17 08:42 88 137/75 10/14/17 08:00 97.9 87 18 137/75 98 97.9 10/14/17 04:12 97.8 84 20 143/68 98 97.8 10/14/17 00:00 Room Air 10/14/17 00:00 98.0 89 20 145/71 97 Room Air 98.0 10/13/17 20:24 91 149/74 10/13/17 20:00 98.1 91 19 149/74 98 Room Air 98.1 10/13/17 20:00 Room Air 10/13/17 16:00 98.8 85 18 140/75 98 98.8 10/13/17 12:00 99.0 74 18 134/68 99 99.0 Intake and Output 4/1/18 4/2/18 19:00 07:00 Intake Total 480 ml 480 ml Balance 480 ml 480 ml Intake Oral 480 ml 480 ml # Voids 3 Laboratory Tests 10/14/17 05:20: White Blood Count 9.8, Red Blood Count 4.11L, Hemoglobin 10.9L, Hematocrit 33.6L , Mean Corpuscular Volume 82, Mean Corpuscular Hemoglobin 26.6L, Mean Corpuscular Hemoglobin Concent 32.5, Red Cell Distribution Width 14.8, Platelet Count 435, Mean Platelet Volume 5.2L, Neutrophils (%) (Auto) 64.3, Lymphocytes ( %) (Auto) 26.9, Monocytes (%) (Auto) 6.4, Eosinophils (%) (Auto) 1.1, Basophils (%) (Auto) 1.3, Sodium Level 135L, Potassium Level 3.8, Chloride Level 98, Carbon Dioxide Level 29, Anion Gap 8, Blood Urea Nitrogen 5L, Creatinine 0.6, Estimat Glomerular Filtration Rate , Glucose Level 88, Calcium Level 8.2L Height (Feet): 5 Height (Inches): 2.00 Weight (Pounds): 130 General Appearance: no apparent distress EENT: normal ENT inspection Neck: supple Cardiovascular: normal rate Respiratory/Chest: decreased breath sounds Abdomen: normal bowel sounds, non tender, soft Extremities: non-tender MANDA TSANG Oct 14, 2017 09:33
--- NOTE | 2017-10-14 11:02 | General Progress Note ---
Assessment/Plan Status: stable Assessment/Plan 1- Metastatic adenocarcinoma 2- Hyponatremia 3- Anemia 4- HTN 5-malnourishment Plan: Oncology GI services notes are reviewed Will discuss the outpatient management Subjective ROS Limited/Unobtainable: No Constitutional: Reports: weakness HEENT: Reports: no symptoms Cardiovascular: Reports: no symptoms Respiratory: Reports: no symptoms Gastrointestinal/Abdominal: Reports: no symptoms Genitourinary: Reports: no symptoms Allergies: Coded Allergies: No Known Allergies (Unverified , 06/09/16) Objective Last 24 Hour Vital Signs Date Time Temp Pulse Resp B/P (MAP) Pulse Ox O2 Delivery O2 Flow Rate FiO2 10/14/17 08:42 88 137/75 10/14/17 08:00 97.9 87 18 137/75 98 97.9 10/14/17 04:12 97.8 84 20 143/68 98 97.8 10/14/17 00:00 Room Air 10/14/17 00:00 98.0 89 20 145/71 97 Room Air 98.0 10/13/17 20:24 91 149/74 10/13/17 20:00 98.1 91 19 149/74 98 Room Air 98.1 10/13/17 20:00 Room Air 10/13/17 16:00 98.8 85 18 140/75 98 98.8 10/13/17 12:00 99.0 74 18 134/68 99 99.0 Intake and Output 10/13/17 10/14/17 19:00 07:00 Intake Total 480 ml 480 ml Balance 480 ml 480 ml Intake Oral 480 ml 480 ml # Voids 3 Laboratory Tests 10/14/17 05:20: White Blood Count 9.8, Red Blood Count 4.11L, Hemoglobin 10.9L, Hematocrit 33.6L , Mean Corpuscular Volume 82, Mean Corpuscular Hemoglobin 26.6L, Mean Corpuscular Hemoglobin Concent 32.5, Red Cell Distribution Width 14.8, Platelet Count 435, Mean Platelet Volume 5.2L, Neutrophils (%) (Auto) 64.3, Lymphocytes ( %) (Auto) 26.9, Monocytes (%) (Auto) 6.4, Eosinophils (%) (Auto) 1.1, Basophils (%) (Auto) 1.3, Sodium Level 135L, Potassium Level 3.8, Chloride Level 98, Carbon Dioxide Level 29, Anion Gap 8, Blood Urea Nitrogen 5L, Creatinine 0.6, Estimat Glomerular Filtration Rate , Glucose Level 88, Calcium Level 8.2L Height (Feet): 5 Height (Inches): 2.00 Weight (Pounds): 130 General Appearance: no apparent distress EENT: PERRL/EOMI Neck: supple Cardiovascular: normal rate Respiratory/Chest: lungs clear Abdomen: soft, distended Extremities: non-tender, other - atrophied musculature 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
[2017-10-14 12:00] VITALS: BP 121/54
--- NOTE | 2017-10-14 13:10 | General Progress Note ---
Assessment/Plan Assessment/Plan mdd lexapro 10mg po qam provided ro/st Subjective Date patient seen: Oct 14, 2017 Neurologic/Psychiatric: Reports: anxiety, depressed, emotional problems Allergies: Coded Allergies: No Known Allergies (Unverified , 06/09/16) Subjective low energy and weakness Objective Last 24 Hour Vital Signs Date Time Temp Pulse Resp B/P (MAP) Pulse Ox O2 Delivery O2 Flow Rate FiO2 10/14/17 12:00 98.1 75 20 121/54 97 Room Air 98.1 10/14/17 08:42 88 137/75 10/14/17 08:00 97.9 87 18 137/75 98 97.9 10/14/17 04:12 97.8 84 20 143/68 98 97.8 10/14/17 00:00 Room Air 10/14/17 00:00 98.0 89 20 145/71 97 Room Air 98.0 10/13/17 20:24 91 149/74 10/13/17 20:00 98.1 91 19 149/74 98 Room Air 98.1 10/13/17 20:00 Room Air 10/13/17 16:00 98.8 85 18 140/75 98 98.8 Intake and Output 10/13/17 10/14/17 19:00 07:00 Intake Total 480 ml 480 ml Balance 480 ml 480 ml Intake Oral 480 ml 480 ml # Voids 3 Laboratory Tests 10/14/17 05:20: White Blood Count 9.8, Red Blood Count 4.11L, Hemoglobin 10.9L, Hematocrit 33.6L , Mean Corpuscular Volume 82, Mean Corpuscular Hemoglobin 26.6L, Mean Corpuscular Hemoglobin Concent 32.5, Red Cell Distribution Width 14.8, Platelet Count 435, Mean Platelet Volume 5.2L, Neutrophils (%) (Auto) 64.3, Lymphocytes ( %) (Auto) 26.9, Monocytes (%) (Auto) 6.4, Eosinophils (%) (Auto) 1.1, Basophils (%) (Auto) 1.3, Sodium Level 135L, Potassium Level 3.8, Chloride Level 98, Carbon Dioxide Level 29, Anion Gap 8, Blood Urea Nitrogen 5L, Creatinine 0.6, Estimat Glomerular Filtration Rate , Glucose Level 88, Calcium Level 8.2L Height (Feet): 5 Height (Inches): 2.00 Weight (Pounds): 130 General Appearance: no apparent distress, alert Neurologic: alert, responsive, depressed affect Arvin Pollock M.D. Oct 14, 2017 13:10
--- NOTE | 2017-10-14 13:11 | Geriatric Progress Note ---
Subjective Interval Events 10/12/17 the pt is the same mdd lexapro 10mg po qam provided ro/st Geriatric Geriatric Last 24 Hour Vital Signs Date Time Temp Pulse Resp B/P (MAP) Pulse Ox O2 Delivery O2 Flow Rate FiO2 10/14/17 12:00 98.1 75 20 121/54 97 Room Air 98.1 10/14/17 08:42 88 137/75 10/14/17 08:00 97.9 87 18 137/75 98 97.9 10/14/17 04:12 97.8 84 20 143/68 98 97.8 10/14/17 00:00 Room Air 10/14/17 00:00 98.0 89 20 145/71 97 Room Air 98.0 10/13/17 20:24 91 149/74 10/13/17 20:00 98.1 91 19 149/74 98 Room Air 98.1 10/13/17 20:00 Room Air 10/13/17 16:00 98.8 85 18 140/75 98 98.8 Intake and Output 10/13/17 10/14/17 19:00 07:00 Intake Total 480 ml 480 ml Balance 480 ml 480 ml Intake Oral 480 ml 480 ml # Voids 3 Laboratory Tests Test 10/14/17 05:20 White Blood Count 9.8 K/UL (4.8-10.8) Red Blood Count 4.11 M/UL (4.20-5.40) L Hemoglobin 10.9 G/DL (12.0-16.0) L Hematocrit 33.6 % (37.0-47.0) L Mean Corpuscular Volume 82 FL (80-99) Mean Corpuscular Hemoglobin 26.6 PG (27.0-31.0) L Mean Corpuscular Hemoglobin Concent 32.5 G/DL (32.0-36.0) Red Cell Distribution Width 14.8 % (11.6-14.8) Platelet Count 435 K/UL (150-450) Mean Platelet Volume 5.2 FL (6.5-10.1) L Neutrophils (%) (Auto) 64.3 % (45.0-75.0) Lymphocytes (%) (Auto) 26.9 % (20.0-45.0) Monocytes (%) (Auto) 6.4 % (1.0-10.0) Eosinophils (%) (Auto) 1.1 % (0.0-3.0) Basophils (%) (Auto) 1.3 % (0.0-2.0) Sodium Level 135 MMOL/L (136-145) L Potassium Level 3.8 MMOL/L (3.5-5.1) Chloride Level 98 MMOL/L (98-107) Carbon Dioxide Level 29 MMOL/L (21-32) Anion Gap 8 mmol/L (5-15) Blood Urea Nitrogen 5 mg/dL (7-18) L Creatinine 0.6 MG/DL (0.55-1.30) Estimat Glomerular Filtration Rate mL/min (>60) Glucose Level 88 MG/DL (74-106) Calcium Level 8.2 MG/DL (8.5-10.1) L Current Medications Medications (Trade) Dose Ordered Sig/Richardson Route PRN Reason Start Time Stop Time Status Last Admin Dose Admin Acetaminophen (Tylenol) 650 mg Q6H PRN ORAL Mild Pain/Temp > 100.5 10/09/17 22:15 11/08/17 22:14 10/10/17 14:51 Heparin Sodium (Porcine) (Heparin 5000 units/ml) 5,000 units EVERY 12 HOURS SUBQ 10/09/17 22:15 11/08/17 22:14 10/14/17 08:44 Metoprolol Tartrate (Lopressor) 12.5 mg Q12HR ORAL 10/09/17 22:15 11/08/17 22:14 10/14/17 08:42 Pantoprazole (Protonix) 40 mg DAILY ORAL 10/10/17 09:00 11/09/17 08:59 10/14/17 08:41 Height (Feet): 5 Height (Inches): 2.00 Weight (Pounds): 130 Arvin Pollock M.D. Oct 14, 2017 13:11
[2017-10-14 16:15] VITALS: BP 134/66
--- NOTE | 2017-10-15 11:54 | Discharge Summary ---
Discharge Summary Discharge Summary Discharge Summary DATE OF ADMISSION: 10/09/2017 DATE OF DISCHARGE: 10/14/2017 REASON FOR ADMISSION: 77 years old female with a past medical history of hypertension, anemia, metastatic adenocarcinoma of cecum, status post right hemicolectomy in 2017, presented to emergency department due to poor appetite and generalized weakness for the last week. Patient reported feeling full after any kaylin she tried to eat. She denied abdominal pain ,nausea,vomiting. She denied fever or chills. She denied chest pain, shortness of breath, cough. Upon evaluation in emergency department no leukocytosis, stable hemoglobin and hematocrit, sodium -125 elevated AST -59, low albumin -2.8. CT of abdomen and pelvis revealed no evidence of bowel obstruction. Interim resection of previously demonstrated cecal mass. Extensive multiply peritoneal and mesenteric and retroperitoneal hemostasis, markedly progressed since previous exam of 01/18/2017, consistent with metastatic carcinomatosis. Ascites , presumed malignant. Pulmonary masses were consistent with metastasis. Patient was admitted with diagnosis of metastatic adenocarcinoma with metastasis to the lungs and carcinomatosis , hyponatremia, transaminitis. HOSPITAL COURSE: Patient was admitted to medical surgical floor. Oncology , GI specialist and psychiatric evaluations were consulted. Pain management was provided. Nutritional support was provided according to nutritional recommendations. Oncologist closely followed. Patient had metastatic adenocarcinoma with metastasis to lung as well as the peritoneal cavity was carcinomatosis. Goals of care were discussed with the patient and family : palliative chemotherapy versus hospice services. Patient was not decided yet. Patient was given business card in case she will lean toward palliative chemotherapy. Cancer tumor markers reveal elevated CA-125 and normal alpha-fetoprotein and CA-15-3. DVT and GI prophylaxis provided Anemia workup revealed anemia offof iron deficiency. Cnc Mechanic recommended to transfuse only if symptomatic or hemoglobin below 7 . Hemoglobin and hematocrit remain at baseline. Patient was discharged on iron supplement with close monitoring for hemoglobin and hematocrit. Stool OB 2 was positive and one time was negative GI closely followed. Abdominal ultrasound revealed no evidence of acute cholecystitis or biliary duct dilatation. Hepatitis panel was negative . Elevated LFT were presumed ti be due to metastatic process. Hyponatremia was corrected, sodium 135 prior to discharge. Given that hemoglobin and hematocrit stable and remained at baseline along with a malignant process , GI recommended to hold GI procedure. Psychiatrist seen and evaluated the patient and diagnosed the patient with a major depressive disorder. Psychiatric medication regimen was optimized. Patient was stable for discharge home with home health services. Patient and family to decide on further goals of care . DVT and GI prophylaxis provided FINAL DIAGNOSES: 1. Metastatic adenocarcinoma with metastasis to the lungs as well as to the peritoneal cavity with carcinomatosis 2. Hyponatremia, resolved. 4 Transaminitis. 5. Anemia, iron deficiency. 6. Malnutrition. 7. Hypertension. 8. Major depressive disorder. DISCHARGE MEDICATIONS: See Medication Reconciliation list. DISCHARGE INSTRUCTIONS: Patient was discharged home with home health services Follow up with primary care provider. Consider goals of care I have been assigned to dictate discharge summary for this account. I was not involved in the patient's management. Ruslan (Chloé Cazares NP Oct 15, 2017 11:54
--- NOTE | 2017-10-15 20:26 | General Progress Note ---
Assessment/Plan Assessment/Plan 1. 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 Reviewed. --> Cont. outpatient treatment. 2. Anemia of iron deficiency. --> Continue to closely monitor. --> Anemia workup reviewed. --> Iron 17, TIBC 177. --> Blood transfusion not required unless symptomatic or hgb <7 --> ++Occult blood, followup and recs by GI service 3. Transaminitis, has been seen by GI Service. 4. Weakness and fatigue, likely due to metastatic cancer, stage IV. 5. Malnourishment due to cancer, remains cachetic. 6. Hypertension. Systolic blood pressure goal less than 140. Subjective Date patient seen: Oct 14, 2017 Constitutional: Denies: no symptoms, chills, diaphoresis, fever, malaise, weakness, other HEENT: Denies: no symptoms, eye pain, blurred vision, tearing, double vision, ear pain, ear discharge, nose pain, nose congestion, throat pain, throat swelling, mouth pain, mouth swelling, other Cardiovascular: Denies: no symptoms, chest pain, edema, irregular heart rate, lightheadedness, palpitations, syncope, other Respiratory: Denies: no symptoms, cough, orthopnea, shortness of breath, SOB with excertion, SOB at rest, sputum, stridor, wheezing, other Gastrointestinal/Abdominal: Denies: no symptoms, abdomen distended, abdominal pain, black stools, tarry stools, blood in stool, constipated, diarrhea, difficulty swallowing, nausea, poor appetite, poor fluid intake, rectal bleeding , vomiting, other Genitourinary: Denies: no symptoms, burning, discharge, frequency, flank pain, hematuria, incontinence, pain, urgency, other Neurologic/Psychiatric: Denies: no symptoms, anxiety, depressed, emotional problems, headache, numbness, paresthesia, pre-existing deficit, seizure, tingling, tremors, weakness, other Hematologic/Lymphatic: Reports: anemia Allergies: Coded Allergies: No Known Allergies (Unverified , 06/09/16) Subjective No major events overnight. Weak. H/H stable. Objective Intake and Output 10/14/17 10/15/17 19:00 07:00 Intake Total 480 ml Balance 480 ml Intake Oral 480 ml # Voids 5 # Bowel Movements 1 Height (Feet): 5 Height (Inches): 2.00 Weight (Pounds): 130 General Appearance: no apparent distress Respiratory/Chest: decreased breath sounds Abdomen: soft Casa Pascal MD Oct 15, 2017 20:26
== END 2017-10-14 20:20 | disposition home health service (06) | DRG 240 ==
LOC: EMR 18:27 → 4W 20:48 → EDBEDREQ 21:40
DX: C78.6 Secondary malignant neoplasm of retroperitoneum and peritoneum (principal); R18.0 Malignant ascites; E46 Unspecified protein-calorie malnutrition; C18.0 Malignant neoplasm of cecum; I10 Essential (primary) hypertension; D50.9 Iron deficiency anemia, unspecified; C18.9 Malignant neoplasm of colon, unspecified; E87.1 Hypo-osmolality and hyponatremia; D64.9 Anemia, unspecified; R53.1 Weakness; F32.9 Major depressive disorder, single episode, unspecified
CPT/HCPCS: 36415; 74177; 76700; 80048; 80053; 81003; 82105; 82150; 82270; 82378; 83036; 83540; 83550; 83690; 83880; 84165; 85025; 86300; 86304; 86705; 86709; 86803; 87340; 99285; J8499

== ENCOUNTER 2017-10-26 22:17 | Inpatient (IN) | payer MEDICAID ==
[~2017-10-26] VITALS: Ht 157.5 cm; Wt 61.2 kg
[~2017-10-26 22:17] MED LIST changes: +AMLODIPINE BESY10 MG ORAL; +ASPIR 8181 MG ORAL; +HYDRALAZINE HCL25 M1 ORAL; +HYDROCHLOROTHIA25 MG ORAL; +VITAMIN D22000 UNIT PO
--- NOTE | 2017-10-26 22:42 | Emergency Room Report ---
History of Present Illness General Chief Complaint: General Complaint Source: Patient Present Illness HPI 77-year-old female, history of colon cancer, metastatic carcinomatosis, currently not on chemotherapy, brought in by [id number] for altered mental status for the last 3-4 hours. They state that patient suddenly became agitated , speaking very rapidly, not making much sense. Currently patient is awake alert, oriented times person and place, agitated however speaking rapidly and talking about God/Aime, not making much sense. She is denying any pain but only stating that she is here because she was not eating Allergies: Coded Allergies: No Known Allergies (Unverified , 06/09/16) Patient History Past Medical History: see triage record Past Surgical History: none Pertinent Family History: none Now: No : 1 Para: 1 Reviewed Nursing Documentation: PMH: Agreed; PSxH: Agreed Nursing Documentation-PMH Hx Cardiac Problems: Yes Hx Hypertension: Yes Hx Cancer: No Hx Gastrointestinal Problems: No History Of Psychiatric Problem: No Hx Neurological Problems: No Review of Systems All Other Systems: negative except mentioned in HPI Physical Exam Vital Signs Date Time Temp Pulse Resp B/P (MAP) Pulse Ox O2 Delivery O2 Flow Rate FiO2 10/26/17 22:21 98.7 122 18 147/69 93 Room Air 98.8 Sp02 EP Interpretation: reviewed, normal General Appearance: alert, moderate distress, other - aox2 Head: normocephalic, atraumatic Eyes: bilateral eye normal inspection, bilateral eye PERRL, bilateral eye EOMI ENT: normal ENT inspection, normal pharynx, normal voice, moist mucus membranes Neck: normal inspection, full range of motion, supple Respiratory: normal inspection, lungs clear, normal breath sounds, no respiratory distress, no retraction, no wheezing, speaking full sentences, chest symmetrical Cardiovascular #1: normal inspection, regular rate, rhythm, normal capillary refill Cardiovascular #2: 2+ radial (R), 2+ radial (L) Gastrointestinal: normal inspection, non tender, soft, non-distended, no guarding Musculoskeletal: normal inspection, back normal, normal range of motion, non- tender Neurologic: other - aox2 moving all ext spont Psychiatric: other - confused Skin: normal inspection, normal color, no rash, warm/dry, well hydrated, normal turgor Medical Decision Making Diagnostic Impression: Primary Impression: Agitated Additional Impressions: Altered mental status UTI (urinary tract infection) Hyponatremia Hypokalemia ER Course 77-year-old female, history of metastatic carcinomatosis, consistent with altered mental status for the last 3 hours DDX: Dehydration, electrolyte disturbance, UTI, pneumonia, intoxication, ACS Plan: Obtain labs, ua, EKG, CXR Consider CT ER course: Patient has been monitored during ED stay, HD stable given ativan for agitation ceftriaxone for UTI Disposition: Patient is to be admitted to telemetry D/W hospitalist Dr Reyes Please note that this Emergency Department Report was dictated using Graphenicsforeign exchange clerk technology software, occasionally this can lead to erroneous entry secondary to interpretation by the dictation equipment. EKG Diagnostic Results EP Interpretation: Yes Rate: normal Rhythm: NSR ST Segments: No acute changes ASA given to patient: No Rhythm Strip EP Interpretation: Yes Rate: 120 Rhythm: NSR, no PVCs, no ectopy Chest X-ray CXR: Ordered: Yes 1 view Indication: Altered mental status EP interpretation: Yes Interpretation: multiple lung mets Impression: multiple lung mets Electronically signed by Karol Chang MD Laboratory Tests Test 10/26/17 22:50 10/27/17 00:10 White Blood Count 15.6 K/UL (4.8-10.8) H Red Blood Count 3.93 M/UL (4.20-5.40) L Hemoglobin 11.0 G/DL (12.0-16.0) L Hematocrit 31.4 % (37.0-47.0) L Mean Corpuscular Volume 80 FL (80-99) Mean Corpuscular Hemoglobin 28.0 PG (27.0-31.0) Mean Corpuscular Hemoglobin Concent 35.0 G/DL (32.0-36.0) Red Cell Distribution Width 14.8 % (11.6-14.8) Platelet Count 696 K/UL (150-450) H Mean Platelet Volume 4.7 FL (6.5-10.1) L Neutrophils (%) (Auto) 84.8 % (45.0-75.0) H Lymphocytes (%) (Auto) 8.9 % (20.0-45.0) L Monocytes (%) (Auto) 5.4 % (1.0-10.0) Eosinophils (%) (Auto) 0.0 % (0.0-3.0) Basophils (%) (Auto) 0.9 % (0.0-2.0) Lactic Acid Level 1.90 mmol/L (0.66-2.22) Total Creatine Kinase 146 U/L (26-140) H Troponin I 0.000 ng/mL (0.000-0.056) Pro-B-Type Natriuretic Peptide 561 pg/mL (0-125) H Serum Alcohol < 3 mg/dL Urine Color Yellow Urine Appearance Slightly cloudy Urine pH 5 (4.5-8.0) Urine Specific [place] 1.015 (1.005-1.035) Urine Protein 1+ (NEGATIVE) H Urine Glucose (UA) Negative (NEGATIVE) Urine Ketones 2+ (NEGATIVE) H Urine Occult Blood 2+ (NEGATIVE) H Urine Nitrite Negative (NEGATIVE) Urine Bilirubin Negative (NEGATIVE) Urine Urobilinogen 1 MG/DL (0.0-1.0) H Urine Leukocyte Esterase 3+ (NEGATIVE) H Urine RBC 5-10 /HPF (0 - 2) H Urine WBC 10-15 /HPF (0 - 2) H Urine Squamous Epithelial Cells Few /LPF (NONE/OCC) Urine Amorphous Sediment Few /LPF (NONE) H Urine Bacteria Moderate /HPF (NONE) H Urine Mucus Few /LPF (NONE/OCC) H Sodium Level 125 MMOL/L (136-145) L Potassium Level 2.5 MMOL/L (3.5-5.1) *L Chloride Level 88 MMOL/L (98-107) L Carbon Dioxide Level 28 MMOL/L (21-32) Anion Gap 11 mmol/L (5-15) Blood Urea Nitrogen 9 mg/dL (7-18) Creatinine 0.7 MG/DL (0.55-1.30) Estimate Glomerular Filtration Rate mL/min (>60) Glucose Level 96 MG/DL (74-106) Calcium Level 8.7 MG/DL (8.5-10.1) Total Bilirubin 0.9 MG/DL (0.2-1.0) Aspartate Amino Transferase (AST) 68 U/L (15-37) H Alanine Aminotransferase (ALT) 16 U/L (12-78) Alkaline Phosphatase 71 U/L (46-116) Total Protein 8.2 G/DL (6.4-8.2) Albumin 2.6 G/DL (3.4-5.0) L Globulin 5.6 g/dL Albumin/Globulin Ratio 0.5 (1.0-2.7) L Urine Opiates Screen Pending Urine Barbiturates Screen Pending Phencyclidine (PCP) Screen Pending Urine Amphetamines Screen Pending Urine Benzodiazepines Screen Pending Urine Cocaine Screen Pending Urine Marijuana (THC) Screen Pending Last Vital Signs Date Time Temp Pulse Resp B/P (MAP) Pulse Ox O2 Delivery O2 Flow Rate FiO2 10/26/17 22:21 98.7 122 18 147/69 93 Room Air 98.8 Disposition: ADMITTED INPATIENT Condition: Serious Karol Chang M.D. Oct 26, 2017 22:42
[2017-10-26] MEDS ORDERED: LORazepam Inj 2mg/ml 1ml IV ONE (22:45)
[2017-10-26] MEDS ORDERED: AMLODIPINE BESY10 MG ORAL (23:26)
[2017-10-26 23:41] LABS: BASOPHILS % (AUTO) 0.9 % (0.0-2.0); HEMATOCRIT 31.4 % (37.0-47.0); LYMPHOCYTES % (AUTO) 8.9 % (20.0-45.0); MEAN CORPUSCULAR VOLUME 80 FL (80-99); MONOCYTES % (AUTO) 5.4 % (1.0-10.0); NEUTROPHILS % (AUTO) 84.8 % (45.0-75.0); PLATELET COUNT 696 K/UL (150-450); RED BLOOD COUNT 3.93 M/UL (4.20-5.40); RED CELL DISTRIBUTION WIDTH 14.8 % (11.6-14.8); WHITE BLOOD COUNT 15.6 K/UL (4.8-10.8)
[2017-10-26 23:50] VITALS: BP 138/59
[2017-10-27] VITALS (8 sets, daily range): BP systolic 114–154; BP diastolic 48–72
[2017-10-27 00:14] LABS: CREATINE KINASE 146 U/L (26-140)
[2017-10-27 00:27] LABS: APPEARANCE,URINE SLIGHTLY CLOUDY; BILIRUBIN, URINE NEGATIVE (NEGATIVE); GLUCOSE, URINE (UA) NEGATIVE (NEGATIVE); KETONES,URINE 2+ (NEGATIVE); LEUKOCYTE ESTERASE ,URINE 3+ (NEGATIVE); NITRITE,URINE NEGATIVE (NEGATIVE); PH,URINE 5 (4.5-8.0); PROTEIN,URINE 1+ (NEGATIVE); UROBILINOGEN,URINE 1 MG/DL (0.0-1.0)
[2017-10-27 00:30] LABS: COLOR,URINE YELLOW
[2017-10-27 00:40] LABS: ALANINE AMINOTRANSFERASE 16 U/L (12-78); ALBUMIN 2.6 G/DL (3.4-5.0); ALBUMIN/GLOBULIN RATIO 0.5 (1.0-2.7); ALKALINE PHOSPHATASE 71 U/L (46-116); ANION GAP 11 mmol/L (5-15); ASPARTATE AMINO TRANSFERASE 68 U/L (15-37); BILIRUBIN,TOTAL 0.9 MG/DL (0.2-1.0); BLOOD UREA NITROGEN 9 mg/dL (7-18); CALCIUM 8.7 MG/DL (8.5-10.1); CARBON DIOXIDE 28 MMOL/L (21-32); CHLORIDE 88 MMOL/L (98-107); CREATININE 0.7 MG/DL (0.55-1.30); SODIUM 125 MMOL/L (136-145)
[2017-10-27 00:41] LABS: POTASSIUM 2.5 MMOL/L (3.5-5.1)
[2017-10-27] MEDS ORDERED: cefTRIAXone 1 GM in NS 55 ML IVPB ONE (00:45)
[2017-10-27 08:35] LABS: BASOPHILS % (AUTO) 1.3 % (0.0-2.0); EOSINOPHILS % (AUTO) 0.2 % (0.0-3.0); HEMATOCRIT 31.8 % (37.0-47.0); HEMOGLOBIN 10.8 G/DL (12.0-16.0); LYMPHOCYTES % (AUTO) 10.7 % (20.0-45.0); MEAN CORPUSCULAR VOLUME 81 FL (80-99); MONOCYTES % (AUTO) 6.7 % (1.0-10.0); NEUTROPHILS % (AUTO) 81.2 % (45.0-75.0); PLATELET COUNT 603 K/UL (150-450); RED BLOOD COUNT 3.94 M/UL (4.20-5.40); RED CELL DISTRIBUTION WIDTH 15.3 % (11.6-14.8); WHITE BLOOD COUNT 13.4 K/UL (4.8-10.8)
[2017-10-27] MEDS: Aspirin Baby 81mg ORAL SCH (08:45)
[2017-10-27] MEDS: Heparin 5000 units/ml inj SUBQ SCH ×2 (08:46→20:33)
[2017-10-27 08:58] LABS: ALANINE AMINOTRANSFERASE 18 U/L (12-78); ALBUMIN 2.7 G/DL (3.4-5.0); ALBUMIN/GLOBULIN RATIO 0.5 (1.0-2.7); ALKALINE PHOSPHATASE 74 U/L (46-116); ANION GAP 11 mmol/L (5-15); ASPARTATE AMINO TRANSFERASE 71 U/L (15-37); BILIRUBIN,TOTAL 0.8 MG/DL (0.2-1.0); BLOOD UREA NITROGEN 6 mg/dL (7-18); CALCIUM 8.9 MG/DL (8.5-10.1); CARBON DIOXIDE 27 MMOL/L (21-32); CHLORIDE 87 MMOL/L (98-107); CHOLESTEROL 192 MG/DL (< 200); CREATININE 0.6 MG/DL (0.55-1.30); HDL CHOLESTEROL 50 MG/DL (40-60); POTASSIUM 3.2 MMOL/L (3.5-5.1); SODIUM 125 MMOL/L (136-145); TRIGLYCERIDES 50 MG/DL (30-150)
[2017-10-27] MEDS ORDERED: HydrALAZINE 25mg tab ORAL SCH (09:00)
[2017-10-27] MEDS ORDERED: Metoprolol Tartrate 50mg tab ORAL SCH (09:00)
[2017-10-27] MEDS ORDERED: cefTRIAXone 1 GM in D5W 110 ML IVPB ONE (09:00)
--- NOTE | 2017-10-27 10:48 | History & Physical ---
History and Physical History & Physicial seen and examined. Dictation completed. Dalila Reyes MD Oct 27, 2017 10:48
--- NOTE | 2017-10-27 10:57 | General Progress Note ---
Assessment/Plan Status: stable Assessment/Plan 1- Acute on chronic Encephalopathy 2- Hyponatremia 3- Metastatic colon CA 4- HTN 5- Dementia 5- GI-DVT prophylaxia Plan: Start empricall abx IV hydration DC HCTZ will monitor Subjective ROS Limited/Unobtainable: Yes Allergies: Coded Allergies: No Known Allergies (Unverified , 06/09/16) Objective Last 24 Hour Vital Signs Date Time Temp Pulse Resp B/P (MAP) Pulse Ox O2 Delivery O2 Flow Rate FiO2 10/27/17 08:45 110 149/70 10/27/17 08:45 149/70 10/27/17 08:44 110 149/70 10/27/17 08:00 110 10/27/17 08:00 97.9 110 17 149/70 98 Room Air 97.9 10/27/17 04:00 95 10/27/17 04:00 97.7 104 16 139/63 97 Room Air 97.7 10/27/17 03:21 98.7 105 20 139/63 98 Room Air 98.7 10/27/17 02:20 98.7 110 20 154/69 98 Room Air 98.7 10/27/17 02:10 98.6 102 21 114/48 100 Room Air 98.6 10/27/17 01:26 98.6 102 21 114/48 100 Room Air 98.6 10/26/17 23:50 98.8 99 18 138/59 98 Room Air 98.8 10/26/17 22:21 98.7 122 18 147/69 93 Room Air 98.8 Intake and Output 10/26/17 10/27/17 19:00 07:00 Intake Total 680 ml Balance 680 ml Intake Oral 680 ml # Voids 2 Laboratory Tests 10/26/17 22:50: White Blood Count 15.6H, Red Blood Count 3.93L, Hemoglobin 11.0L, Hematocrit 31.4L, Mean Corpuscular Volume 80, Mean Corpuscular Hemoglobin 28.0, Mean Corpuscular Hemoglobin Concent 35.0, Red Cell Distribution Width 14.8, Platelet Count 696H, Mean Platelet Volume 4.7L, Neutrophils (%) (Auto) 84.8H, Lymphocytes (%) (Auto) 8.9L, Monocytes (%) (Auto) 5.4, Eosinophils (%) (Auto) 0.0, Basophils (%) (Auto) 0.9, Lactic Acid Level 1.90, Total Creatine Kinase 146H, Troponin I 0.000, Pro-B-Type Natriuretic Peptide 561H, Serum Alcohol < 3 10/27/17 00:10: Urine Color Yellow, Urine Appearance Slightly cloudy, Urine pH 5, Urine Specific [place] 1.015, Urine Protein 1+H, Urine Glucose (UA) Negative, Urine Ketones 2+H, Urine Occult Blood 2+H, Urine Nitrite Negative, Urine Bilirubin Negative, Urine Urobilinogen 1H, Urine Leukocyte Esterase 3+H, Urine RBC 5-10H, Urine WBC 10-15H, Urine Squamous Epithelial Cells Few, Urine Amorphous Sediment FewH, Urine Bacteria ModerateH, Urine Mucus FewH, Sodium Level 125L, Potassium Level 2.5*L, Chloride Level 88L, Carbon Dioxide Level 28, Anion Gap 11, Blood Urea Nitrogen 9, Creatinine 0.7, Estimat Glomerular Filtration Rate , Glucose Level 96, Calcium Level 8.7, Total Bilirubin 0.9, Aspartate Amino Transf (AST/ SGOT) 68H, Alanine Aminotransferase (ALT/SGPT) 16, Alkaline Phosphatase 71, Total Protein 8.2, Albumin 2.6L, Globulin 5.6, Albumin/Globulin Ratio 0.5L, Urine Opiates Screen Negative, Urine Barbiturates Screen Negative, Phencyclidine (PCP) Screen Negative, Urine Amphetamines Screen Negative, Urine Benzodiazepines Screen Negative, Urine Cocaine Screen Negative, Urine Marijuana (THC) Screen Negative 10/27/17 08:10: White Blood Count 13.4H, Red Blood Count 3.94L, Hemoglobin 10.8L, Hematocrit 31.8L, Mean Corpuscular Volume 81, Mean Corpuscular Hemoglobin 27.3, Mean Corpuscular Hemoglobin Concent 33.9, Red Cell Distribution Width 15.3H, Platelet Count 603H, Mean Platelet Volume 5.0L, Neutrophils (%) (Auto) 81.2H, Lymphocytes (%) (Auto) 10.7L, Monocytes (%) (Auto) 6.7, Eosinophils (%) (Auto) 0.2, Basophils (%) (Auto) 1.3, Pro-B-Type Natriuretic Peptide 694H, Sodium Level 125L, Potassium Level 3.2L, Chloride Level 87L, Carbon Dioxide Level 27, Anion Gap 11, Blood Urea Nitrogen 6L, Creatinine 0.6, Estimat Glomerular Filtration Rate , Glucose Level 100, Calcium Level 8.9, Total Bilirubin 0.8, Aspartate Amino Transf (AST/SGOT) 71H, Alanine Aminotransferase (ALT/SGPT) 18, Alkaline Phosphatase 74, Total Protein 8.6H, Albumin 2.7L, Globulin 5.9, Albumin /Globulin Ratio 0.5L, Hemoglobin A1c 4.7, Triglycerides Level 50, Cholesterol Level 192, LDL Cholesterol 118H, HDL Cholesterol 50, Cholesterol/HDL Ratio 3.8 Height (Feet): 5 Height (Inches): 2.00 Weight (Pounds): 124 General Appearance: no apparent distress EENT: PERRL/EOMI Neck: supple Cardiovascular: normal rate Respiratory/Chest: lungs clear Abdomen: soft Extremities: non-tender Neurologic: disoriented, other - demented. Dalila Reyes MD Oct 27, 2017 10:57
--- NOTE | 2017-10-27 10:57 | Diagnostic Imaging Report ---
Indication: Chest pain Technique: One view of the chest Comparison: 06/09/2016 Findings: Multiple large well circumscribed masses are seen in both lungs. This is new since the previous study. No definite infiltrates. The heart size is normal. There is a right paratracheal mass again demonstrated. Impression: Multiple lung masses, consistent with metastatic disease. This is also described on recent CT scan of 10/09/2017 No definite acute infiltrates
--- NOTE | 2017-10-27 17:00 | History and Physical Report ---
DATE OF ADMISSION: 10/26/2017 SOURCE OF INFORMATION: The patient and EMR. HISTORY OF PRESENT ILLNESS: The patient is a 77-year-old female with known diagnosis of metastatic adenocarcinoma, most likely source of colon CA. The patient presented with change in the mental status. Per the daughter, who mother/the patient lives with her, she was AO x1, decreased, more confusion. At the time of evaluation in the emergency room, the patient denies any chest pain or shortness of breath. The patient is AO x2. The patient denies any nausea, vomitus. There is no history of seizure disorder, seizure activity, or any trauma or incidents of fall. REVIEW OF SYSTEMS: All 12 elements of review of systems reviewed with the patient. Pertinent positive and negative as above. PAST MEDICAL HISTORY: Hypertension, anemia, metastatic colon CA. FAMILY HISTORY: Reviewed, noncontributory. MEDICATIONS: Current hospital medications including but not limited to Protonix, metoprolol, hydrochlorothiazide, hydralazine 25 mg q.12 hours, ceftriaxone 2 g, aspirin 81 mg, amlodipine 20 mg daily. ALLERGIES: NKDA. FAMILY HISTORY: Reviewed, noncontributory. PHYSICAL EXAMINATION: VITAL SIGNS: Blood pressure 150/80, temperature 98.2, pulse oximetry 98% on room air, pulse rate 110, respiratory rate 20. HEAD AND NECK: Atraumatic and normocephalic. CHEST: Clear to auscultation. No wheezing. No crackles. HEART: S1 and S2. Regular rate and rhythm. No S3. No S4. ABDOMEN: Prominent, no tenderness, bowel sounds are normal. NEUROLOGIC: The patient is awake, alert, and oriented x2. Drowsy. Easily arousable. Cranial nerve deficits cannot be excluded at this time. Limited examination. LABORATORY DATA: Labs dated 10/26/2017 showed WBC 15.6, hemoglobin 11, platelets of 696,000. Sodium of 125, potassium of 2.5, BUN 11, creatinine 0.7. ALT of 68. urinalysis is positive for the wbc's, positive for bacteria. Toxicology is unremarkable. ASSESSMENT: 1. Acute encephalopathy. 2. Urinary tract infection. 3. Metastatic colon CA. 4. Hyponatremia. 5. Hypertension, uncontrolled. 6. Anemia. 7. GI and DVT prophylaxis. PLAN OF CARE: We will continue with conservative care management. Discontinued hydrochlorothiazide. We will optimize the medications according to vital signs. Continue with ceftriaxone. The patient will get benefit by the placement/palliative care. It had been discussed with the daughter, Kylie. Current management. Dalila Reyes M.D. DR: Froylan JOB#: [id number] CC:
[2017-10-27] MEDS ORDERED: NS 275ml ONE (22:35)
[2017-10-27] MEDS ORDERED: Tubing IV Secondary IV ONE (22:35)
[2017-10-28] VITALS: BP 138/65
[2017-10-28 04:00] VITALS: BP 141/76
[2017-10-28 07:38] LABS: HEMATOCRIT 29.6 % (37.0-47.0); HEMOGLOBIN 10.5 G/DL (12.0-16.0); MEAN CORPUSCULAR VOLUME 80 FL (80-99); PLATELET COUNT 660 K/UL (150-450); RED BLOOD COUNT 3.69 M/UL (4.20-5.40); RED CELL DISTRIBUTION WIDTH 15.5 % (11.6-14.8); WHITE BLOOD COUNT 14.1 K/UL (4.8-10.8)
[2017-10-28 07:55] LABS: ALANINE AMINOTRANSFERASE 17 U/L (12-78); ALBUMIN/GLOBULIN RATIO 0.6 (1.0-2.7); ALKALINE PHOSPHATASE 75 U/L (46-116); ANION GAP 11 mmol/L (5-15); ASPARTATE AMINO TRANSFERASE 66 U/L (15-37); BILIRUBIN,TOTAL 0.8 MG/DL (0.2-1.0); BLOOD UREA NITROGEN 5 mg/dL (7-18); CALCIUM 8.8 MG/DL (8.5-10.1); CARBON DIOXIDE 26 MMOL/L (21-32); CHLORIDE 88 MMOL/L (98-107); CREATININE 0.5 MG/DL (0.55-1.30); POTASSIUM 2.9 MMOL/L (3.5-5.1); SODIUM 125 MMOL/L (136-145)
[2017-10-28 08:00] VITALS: BP 146/66
[2017-10-28] MEDS: Aspirin Baby 81mg ORAL SCH (08:59)
[2017-10-28] MEDS: cefTRIAXone 2 GM in D5W 110 ML IVPB SCH (09:00)
[2017-10-28] MEDS: Heparin 5000 units/ml inj SUBQ SCH ×2 (10:01→21:12)
--- NOTE | 2017-10-28 11:24 | General Progress Note ---
Assessment/Plan Status: stable Assessment/Plan PHYSICAL EXAMINATION: VITAL SIGNS: Blood pressure 150/80, temperature 98.2, pulse oximetry 98% on room air, pulse rate 110, respiratory rate 20. HEAD AND NECK: Atraumatic and normocephalic. CHEST: Clear to auscultation. No wheezing. No crackles. HEART: S1 and S2. Regular rate and rhythm. No S3. No S4. ABDOMEN: Prominent, no tenderness, bowel sounds are normal. NEUROLOGIC: The patient is awake, alert, and oriented x2. agitated at times. Easily arousable. Cranial nerve deficits cannot be excluded at this time. Limited examination. ASSESSMENT: 1. Acute encephalopathy. 2. Urinary tract infection. 3. Metastatic colon CA. 4. Hyponatremia. 5. Hypertension, uncontrolled. 6. Anemia. 7. GI and DVT prophylaxis. PLAN OF CARE: Plan: Start empricall abx IV hydration DC HCTZ will monitor start Lisinopril consult psych Subjective ROS Limited/Unobtainable: No Constitutional: Reports: no symptoms HEENT: Reports: no symptoms Cardiovascular: Reports: no symptoms Allergies: Coded Allergies: No Known Allergies (Unverified , 06/09/16) Objective Last 24 Hour Vital Signs Date Time Temp Pulse Resp B/P (MAP) Pulse Ox O2 Delivery O2 Flow Rate FiO2 10/28/17 08:59 96 146/66 10/28/17 08:00 115 10/28/17 08:00 97.9 96 20 146/66 96 Room Air 97.9 10/28/17 04:00 94 10/28/17 04:00 98.0 96 18 141/76 96 Room Air 98.0 10/28/17 00:00 96.6 82 18 138/65 97 Room Air 96.6 10/28/17 00:00 85 10/27/17 20:32 110 156/70 10/27/17 20:00 96.3 100 18 147/72 99 Room Air 96.3 10/27/17 20:00 110 10/27/17 16:00 97 10/27/17 16:00 97.7 91 21 136/71 97 Room Air 97.7 10/27/17 12:00 97.9 82 16 122/70 100 Room Air 97.9 10/27/17 12:00 74 Intake and Output 10/27/17 10/28/17 19:00 07:00 Intake Total 861 ml 525 ml Balance 861 ml 525 ml Intake Oral 336 ml IV Total 525 ml 525 ml # Voids 2 1 Laboratory Tests 10/28/17 07:15: White Blood Count 14.1H, Red Blood Count 3.69L, Hemoglobin 10.5L, Hematocrit 29.6L, Mean Corpuscular Volume 80, Mean Corpuscular Hemoglobin 28.4, Mean Corpuscular Hemoglobin Concent 35.4, Red Cell Distribution Width 15.5H, Platelet Count 660H, Mean Platelet Volume 5.1L, Neutrophils (%) (Auto) , Lymphocytes (%) (Auto) , Monocytes (%) (Auto) , Eosinophils (%) (Auto) , Basophils (%) (Auto) , Differential Total Cells Counted 100, Neutrophils % ( Manual) 88H, Lymphocytes % (Manual) 10L, Monocytes % (Manual) 1, Eosinophils % ( Manual) 0, Basophils % (Manual) 1, Band Neutrophils 0, Platelet Estimate IncreasedH, Platelet Morphology Normal, Hypochromasia 1+, Anisocytosis 1+, Sodium Level 125L, Potassium Level 2.9L, Chloride Level 88L, Carbon Dioxide Level 26, Anion Gap 11, Blood Urea Nitrogen 5L, Creatinine 0.5L, Estimat Glomerular Filtration Rate , Glucose Level 119H, Calcium Level 8.8, Total Bilirubin 0.8, Aspartate Amino Transf (AST/SGOT) 66H, Alanine Aminotransferase ( ALT/SGPT) 17, Alkaline Phosphatase 75, Total Protein 8.2, Albumin 3.0L, Globulin 5.2, Albumin/Globulin Ratio 0.6L Height (Feet): 5 Height (Inches): 2.00 Weight (Pounds): 124 General Appearance: no apparent distress EENT: PERRL/EOMI Neck: supple Cardiovascular: normal rate Respiratory/Chest: lungs clear Abdomen: soft Extremities: non-tender Neurologic: piccolo mechanic II-XII grossly normal, other - agitated at times Dalila Reyes MD Oct 28, 2017 11:24
[2017-10-28] MEDS ORDERED: Haloperidol 5mg/ml Inj IM PRN (11:45)
[2017-10-28 12:00] VITALS: BP 129/68
[2017-10-28] MEDS: Lisinopril 2.5mg tab ORAL SCH (12:19)
[2017-10-28 16:00] VITALS: BP 130/75
[2017-10-28 20:00] VITALS: BP 145/81
--- NOTE | 2017-10-28 21:24 | Cardiology Report ---
APPROVED REPORT EKG Measurement Heart [id number] ID [id number] Sinus tachycardia Septal infarct, age undetermined Abnormal ECG
--- NOTE | 2017-10-28 23:56 | General Progress Note ---
Assessment/Plan Status: unchanged Assessment/Plan encephalopathy dementia with behavioral dist -haldol im -provided ro/st Subjective Date patient seen: Oct 28, 2017 Neurologic/Psychiatric: Reports: anxiety, depressed, emotional problems Allergies: Coded Allergies: No Known Allergies (Unverified , 06/09/16) Subjective the pt gets agitated at times and was confused. Objective Last 24 Hour Vital Signs Date Time Temp Pulse Resp B/P (MAP) Pulse Ox O2 Delivery O2 Flow Rate FiO2 10/28/17 21:10 100 145/81 10/28/17 20:00 97.3 100 22 145/81 98 Room Air 97.3 10/28/17 20:00 94 10/28/17 16:00 97 10/28/17 16:00 97.8 85 18 130/75 97 Room Air 97.8 10/28/17 12:19 129/68 10/28/17 12:00 99.1 77 18 129/68 96 Room Air 99.1 10/28/17 12:00 76 10/28/17 08:59 96 146/66 10/28/17 08:00 115 10/28/17 08:00 97.9 96 20 146/66 96 Room Air 97.9 10/28/17 04:00 94 10/28/17 04:00 98.0 96 18 141/76 96 Room Air 98.0 10/28/17 00:00 96.6 82 18 138/65 97 Room Air 96.6 10/28/17 00:00 85 Intake and Output 10/27/17 10/28/17 19:00 07:00 Intake Total 861 ml 525 ml Balance 861 ml 525 ml Intake Oral 336 ml IV Total 525 ml 525 ml # Voids 2 1 Laboratory Tests 10/28/17 07:15: White Blood Count 14.1H, Red Blood Count 3.69L, Hemoglobin 10.5L, Hematocrit 29.6L, Mean Corpuscular Volume 80, Mean Corpuscular Hemoglobin 28.4, Mean Corpuscular Hemoglobin Concent 35.4, Red Cell Distribution Width 15.5H, Platelet Count 660H, Mean Platelet Volume 5.1L, Neutrophils (%) (Auto) , Lymphocytes (%) (Auto) , Monocytes (%) (Auto) , Eosinophils (%) (Auto) , Basophils (%) (Auto) , Differential Total Cells Counted 100, Neutrophils % ( Manual) 88H, Lymphocytes % (Manual) 10L, Monocytes % (Manual) 1, Eosinophils % ( Manual) 0, Basophils % (Manual) 1, Band Neutrophils 0, Platelet Estimate IncreasedH, Platelet Morphology Normal, Hypochromasia 1+, Anisocytosis 1+, Sodium Level 125L, Potassium Level 2.9L, Chloride Level 88L, Carbon Dioxide Level 26, Anion Gap 11, Blood Urea Nitrogen 5L, Creatinine 0.5L, Estimat Glomerular Filtration Rate , Glucose Level 119H, Calcium Level 8.8, Total Bilirubin 0.8, Aspartate Amino Transf (AST/SGOT) 66H, Alanine Aminotransferase ( ALT/SGPT) 17, Alkaline Phosphatase 75, Total Protein 8.2, Albumin 3.0L, Globulin 5.2, Albumin/Globulin Ratio 0.6L Height (Feet): 5 Height (Inches): 2.00 Weight (Pounds): 124 General Appearance: no apparent distress, alert, confused, agitated Arvin Pollock M.D. Oct 28, 2017 23:56
--- NOTE | 2017-10-28 23:56 | Consultation ---
History of Present Illness General Date patient seen: Oct 27, 2017 Chief Complaint: General Complaint Present Illness HPI 77-year-old female with metastatic adenocarcinoma, most likely source of colon CA. The patient presented with change in the mental status. the pt was agitated and had a sitter the pt was unable to provide any hx. the pt didnt know her name and has waxing and waning of consciousness Allergies: Coded Allergies: No Known Allergies (Unverified , 06/09/16) Medication History Scheduled Amlodipine Besylate (Norvasc), 5 MG ORAL BID Amlodipine Besylate* (Amlodipine Besylate*), 20 MG ORAL DAILY, (Reported) Amlodipine Besylate* (Amlodipine Besylate*), 20 MG ORAL DAILY, (Reported) Aspirin* (Aspir 81*), 81 MG ORAL DAILY, (Reported) Ergocalciferol (Vitamin D2) (Vitamin D2), 50,000 UNIT PO ONCE A WEEK, (Reported) Ferrous Sulfate (Ferrous Sulfate), 1 TAB ORAL TID, (Reported) Ferrous Sulfate (Ferrous Sulfate), 1 TAB ORAL TID, (Reported) Hydralazine Hcl* (Hydralazine Hcl*), 25 MG ORAL TWICE A DAY, (Reported) Hydrochlorothiazide* (Hydrochlorothiazide*), 25 MG ORAL DAILY, (Reported) Metoprolol Tartrate* (Metoprolol Tartrate*), 50 MG ORAL EVERY 12 HOURS, ( Reported) Metoprolol Tartrate* (Metoprolol Tartrate*), 50 MG ORAL TWICE A DAY, (Reported) No Known Medications* (NKM - No Known Medications*), 0 ., (Reported) Pantoprazole* (Protonix*), 40 MG ORAL DAILY Patient History Limited by: medical condition History Provided By: Patient, Medical Record, PMD Healthcare decision maker Resuscitation status Full Code Advanced Directive on File Past Medical/Surgical History Past Medical/Surgical History: (1) Iron deficiency (2) Anemia (3) Colon cancer (4) Lung nodules (5) DVT (deep venous thrombosis) (6) Colonoscopy planned (7) Malnutrition (8) HTN (hypertension) (9) Elevated liver function tests (10) Hypokalemia (11) Hyponatremia (12) Agitated (13) UTI (urinary tract infection) (14) Altered mental status (15) Altered mental status Review of Systems Psychiatric: Reports: prior hx, anxiety, depressed feelings, emotional problems Physical Exam General Appearance: alert, confused, agitated Last 24 Hour Vital Signs Date Time Temp Pulse Resp B/P (MAP) Pulse Ox O2 Delivery O2 Flow Rate FiO2 10/28/17 21:10 100 145/81 10/28/17 20:00 97.3 100 22 145/81 98 Room Air 97.3 10/28/17 20:00 94 10/28/17 16:00 97 10/28/17 16:00 97.8 85 18 130/75 97 Room Air 97.8 10/28/17 12:19 129/68 10/28/17 12:00 99.1 77 18 129/68 96 Room Air 99.1 10/28/17 12:00 76 10/28/17 08:59 96 146/66 10/28/17 08:00 115 10/28/17 08:00 97.9 96 20 146/66 96 Room Air 97.9 10/28/17 04:00 94 10/28/17 04:00 98.0 96 18 141/76 96 Room Air 98.0 10/28/17 00:00 96.6 82 18 138/65 97 Room Air 96.6 10/28/17 00:00 85 Intake and Output 10/27/17 10/28/17 19:00 07:00 Intake Total 861 ml 525 ml Balance 861 ml 525 ml Intake Oral 336 ml IV Total 525 ml 525 ml # Voids 2 1 Laboratory Tests Test 10/28/17 07:15 White Blood Count 14.1 K/UL (4.8-10.8) H Red Blood Count 3.69 M/UL (4.20-5.40) L Hemoglobin 10.5 G/DL (12.0-16.0) L Hematocrit 29.6 % (37.0-47.0) L Mean Corpuscular Volume 80 FL (80-99) Mean Corpuscular Hemoglobin 28.4 PG (27.0-31.0) Mean Corpuscular Hemoglobin Concent 35.4 G/DL (32.0-36.0) Red Cell Distribution Width 15.5 % (11.6-14.8) H Platelet Count 660 K/UL (150-450) H Mean Platelet Volume 5.1 FL (6.5-10.1) L Neutrophils (%) (Auto) % (45.0-75.0) Lymphocytes (%) (Auto) % (20.0-45.0) Monocytes (%) (Auto) % (1.0-10.0) Eosinophils (%) (Auto) % (0.0-3.0) Basophils (%) (Auto) % (0.0-2.0) Differential Total Cells Counted 100 Neutrophils % (Manual) 88 % (45-75) H Lymphocytes % (Manual) 10 % (20-45) L Monocytes % (Manual) 1 % (1-10) Eosinophils % (Manual) 0 % (0-3) Basophils % (Manual) 1 % (0-2) Band Neutrophils 0 % (0-8) Platelet Estimate Increased H Platelet Morphology Normal Hypochromasia 1+ Anisocytosis 1+ Sodium Level 125 MMOL/L (136-145) L Potassium Level 2.9 MMOL/L (3.5-5.1) L Chloride Level 88 MMOL/L (98-107) L Carbon Dioxide Level 26 MMOL/L (21-32) Anion Gap 11 mmol/L (5-15) Blood Urea Nitrogen 5 mg/dL (7-18) L Creatinine 0.5 MG/DL (0.55-1.30) L Estimat Glomerular Filtration Rate mL/min (>60) Glucose Level 119 MG/DL (74-106) H Calcium Level 8.8 MG/DL (8.5-10.1) Total Bilirubin 0.8 MG/DL (0.2-1.0) Aspartate Amino Transf (AST/SGOT) 66 U/L (15-37) H Alanine Aminotransferase (ALT/SGPT) 17 U/L (12-78) Alkaline Phosphatase 75 U/L (46-116) Total Protein 8.2 G/DL (6.4-8.2) Albumin 3.0 G/DL (3.4-5.0) L Globulin 5.2 g/dL Albumin/Globulin Ratio 0.6 (1.0-2.7) L Height (Feet): 5 Height (Inches): 2.00 Weight (Pounds): 124 Medications Current Medications Medications (Trade) Dose Ordered Sig/Richardson Route PRN Reason Start Time Stop Time Status Last Admin Dose Admin Aspirin (ASA) 81 mg DAILY ORAL 10/27/17 09:00 11/26/17 08:59 10/28/17 08:59 Ceftriaxone Sodium 2 gm/ Dextrose 110 ml @ 220 mls/hr DAILY IVPB 10/28/17 09:00 11/04/17 08:59 10/28/17 09:00 Ferrous Sulfate (Feosol) 325 mg THREE TIMES A DAY ORAL 10/27/17 09:00 11/26/17 08:59 10/28/17 17:03 Haloperidol Lactate (Haldol) 5 mg Q6H PRN IM Agitation 10/28/17 11:45 11/27/17 11:44 Heparin Sodium (Porcine) (Heparin 5000 units/ml) 5,000 units EVERY 12 HOURS SUBQ 10/27/17 09:00 11/26/17 08:59 10/28/17 21:12 Lisinopril (Zestril) 2.5 mg DAILY ORAL 10/28/17 12:30 11/27/17 12:29 10/28/17 12:19 Metoprolol Tartrate (Lopressor) 100 mg Q12HR ORAL 10/27/17 21:00 11/26/17 20:59 10/28/17 21:10 Pantoprazole (Protonix) 40 mg DAILY ORAL 10/27/17 09:00 11/26/17 08:59 10/28/17 08:59 Potassium Chloride (K-Dur) 40 meq DAILY ORAL 10/28/17 09:30 11/27/17 09:29 10/28/17 09:15 Sodium Chloride 1,000 ml @ 75 mls/hr [id number] IV 10/27/17 10:45 11/26/17 10:44 10/28/17 06:30 Assessment/Plan Status: unchanged Assessment/Plan encephalopathy dementia with behavioral dist -haldol im -dc Arvin Morrison M.D. Oct 28, 2017 23:56
[2017-10-29] VITALS: BP 127/66
[2017-10-29 04:00] VITALS: BP 137/68
[2017-10-29 08:00] VITALS: BP 136/66
[2017-10-29] MEDS: Lisinopril 2.5mg tab ORAL SCH (08:49)
[2017-10-29] MEDS: Aspirin Baby 81mg ORAL SCH (08:49)
[2017-10-29] MEDS: Heparin 5000 units/ml inj SUBQ SCH ×2 (08:52→21:03)
[2017-10-29] MEDS ORDERED: NS 275ml ONE (08:53)
[2017-10-29] MEDS: cefTRIAXone 2 GM in D5W 110 ML IVPB SCH (09:09)
[2017-10-29 11:32] VITALS: BP 148/77
[2017-10-29 15:40] VITALS: BP 129/61
[2017-10-29 20:00] VITALS: BP 124/75
[2017-10-30] VITALS (7 sets, daily range): BP systolic 133–150; BP diastolic 62–77
[2017-10-30] MEDS: Lisinopril 2.5mg tab ORAL SCH ×2 (09:00→09:11)
[2017-10-30] MEDS: Aspirin Baby 81mg ORAL SCH (09:11)
[2017-10-30] MEDS: Heparin 5000 units/ml inj SUBQ SCH ×2 (09:12→21:04)
[2017-10-30] MEDS: cefTRIAXone 2 GM in D5W 110 ML IVPB SCH (10:11)
[2017-10-30 10:51] LABS: HEMATOCRIT 30.5 % (37.0-47.0); HEMOGLOBIN 9.9 G/DL (12.0-16.0); MEAN CORPUSCULAR VOLUME 84 FL (80-99); PLATELET COUNT 593 K/UL (150-450); RED BLOOD COUNT 3.64 M/UL (4.20-5.40); RED CELL DISTRIBUTION WIDTH 16.8 % (11.6-14.8); WHITE BLOOD COUNT 14.6 K/UL (4.8-10.8)
[2017-10-30 11:23] LABS: ALANINE AMINOTRANSFERASE 18 U/L (12-78); ALBUMIN 2.7 G/DL (3.4-5.0); ALBUMIN/GLOBULIN RATIO 0.5 (1.0-2.7); ALKALINE PHOSPHATASE 67 U/L (46-116); ANION GAP 13 mmol/L (5-15); ASPARTATE AMINO TRANSFERASE 81 U/L (15-37); BILIRUBIN,TOTAL 0.8 MG/DL (0.2-1.0); BLOOD UREA NITROGEN 8 mg/dL (7-18); CALCIUM 8.9 MG/DL (8.5-10.1); CARBON DIOXIDE 25 MMOL/L (21-32); CHLORIDE 94 MMOL/L (98-107); CREATININE 0.6 MG/DL (0.55-1.30); POTASSIUM 3.1 MMOL/L (3.5-5.1); SODIUM 132 MMOL/L (136-145)
--- NOTE | 2017-10-30 11:32 | General Progress Note ---
Assessment/Plan Status: stable Assessment/Plan PHYSICAL EXAMINATION: VITAL SIGNS: Blood pressure 150/80, temperature 98.2, pulse oximetry 98% on room air, pulse rate 110, respiratory rate 20. HEAD AND NECK: Atraumatic and normocephalic. CHEST: Clear to auscultation. No wheezing. No crackles. HEART: S1 and S2. Regular rate and rhythm. No S3. No S4. ABDOMEN: Prominent, no tenderness, bowel sounds are normal. NEUROLOGIC: The patient is awake, alert, and oriented x2. agitated at times. Easily arousable. Cranial nerve deficits cannot be excluded at this time. Limited examination. ASSESSMENT: 1. Acute encephalopathy. 2. Urinary tract infection. 3. Metastatic colon CA. 4. Hyponatremia. 5. Hypertension, uncontrolled. 6. Anemia. 7. GI and DVT prophylaxis. PLAN OF CARE: Plan: Start empricall abx IV hydration DC HCTZ will monitor continue with Lisinopril consult psych comment: seen and examined. on October 29. Time of this street light mechanic does not reflect actual time of encounter Subjective ROS Limited/Unobtainable: Yes Constitutional: Reports: no symptoms HEENT: Reports: no symptoms Allergies: Coded Allergies: No Known Allergies (Unverified , 06/09/16) Objective Last 24 Hour Vital Signs Date Time Temp Pulse Resp B/P (MAP) Pulse Ox O2 Delivery O2 Flow Rate FiO2 10/30/17 09:11 110 143/75 10/30/17 09:09 110 143/75 10/30/17 09:00 143/75 10/30/17 08:00 97.3 112 20 150/77 98 Room Air 97.3 10/30/17 04:00 99.0 95 21 133/71 99 99.0 10/30/17 00:00 98.7 99 21 134/70 97 98.7 10/29/17 21:00 104 124/75 10/29/17 20:00 97.6 104 21 124/75 95 97.6 10/29/17 15:40 97.7 98 18 129/61 98 Room Air 97.7 10/29/17 12:00 93 10/29/17 11:32 98.1 97 20 148/77 98 Room Air 98.1 Intake and Output 10/29/17 10/30/17 19:00 07:00 Intake Total 485 ml 675 ml Balance 485 ml 675 ml Intake Oral 150 ml IV Total 335 ml 675 ml # Voids 2 1 Laboratory Tests 10/30/17 10:05: White Blood Count 14.6H, Red Blood Count 3.64L, Hemoglobin 9.9L, Hematocrit 30.5L, Mean Corpuscular Volume 84, Mean Corpuscular Hemoglobin 27.2, Mean Corpuscular Hemoglobin Concent 32.5, Red Cell Distribution Width 16.8H, Platelet Count 593H, Mean Platelet Volume 4.7L, Neutrophils (%) (Auto) , Lymphocytes (%) (Auto) , Monocytes (%) (Auto) , Eosinophils (%) (Auto) , Basophils (%) (Auto) , Neutrophils % (Manual) [Pending], Lymphocytes % (Manual) [Pending], Platelet Estimate [Pending], Platelet Morphology [Pending], Sodium Level [Pending], Potassium Level [Pending], Chloride Level [Pending], Carbon Dioxide Level [Pending], Blood Urea Nitrogen [Pending], Creatinine [Pending], Estimat Glomerular Filtration Rate [Pending], Glucose Level [Pending], Calcium Level [Pending], Total Bilirubin [Pending], Aspartate Amino Transf (AST/SGOT) [ Pending], Alanine Aminotransferase (ALT/SGPT) [Pending], Alkaline Phosphatase [ Pending], Total Protein [Pending], Albumin [Pending], Globulin [Pending] Height (Feet): 5 Height (Inches): 2.00 Weight (Pounds): 124 General Appearance: WD/WN EENT: PERRL/EOMI Neck: supple Cardiovascular: normal rate Respiratory/Chest: lungs clear Abdomen: soft Extremities: non-tender Neurologic: fire patrol II-XII grossly normal, disoriented, other - mood and affect anxious Dalila Reyes MD Oct 30, 2017 11:32
--- NOTE | 2017-10-30 11:37 | General Progress Note ---
Assessment/Plan Status: stable Assessment/Plan PHYSICAL EXAMINATION: VITAL SIGNS: Blood pressure 150/80, temperature 98.2, pulse oximetry 98% on room air, pulse rate 110, respiratory rate 20. HEAD AND NECK: Atraumatic and normocephalic. CHEST: Clear to auscultation. No wheezing. No crackles. HEART: S1 and S2. Regular rate and rhythm. No S3. No S4. ABDOMEN: Prominent, no tenderness, bowel sounds are normal. NEUROLOGIC: The patient is awake, alert, and oriented x2. agitated at times. Easily arousable. Cranial nerve deficits cannot be excluded at this time. Limited examination. ASSESSMENT: 1. Acute encephalopathy. 2. Urinary tract infection. 3. Metastatic colon CA. 4. Hyponatremia. 5. Hypertension, uncontrolled. 6. Anemia. 7. GI and DVT prophylaxis. PLAN OF CARE: Plan: Hospice placement. Spoke to [facility]. Mentioned that is not capable to take mother at her home Placement in progress Subjective ROS Limited/Unobtainable: No Constitutional: Reports: no symptoms HEENT: Reports: no symptoms Cardiovascular: Reports: no symptoms Allergies: Coded Allergies: No Known Allergies (Unverified , 06/09/16) Objective Last 24 Hour Vital Signs Date Time Temp Pulse Resp B/P (MAP) Pulse Ox O2 Delivery O2 Flow Rate FiO2 10/30/17 09:11 110 143/75 10/30/17 09:09 110 143/75 10/30/17 09:00 143/75 10/30/17 08:00 97.3 112 20 150/77 98 Room Air 97.3 10/30/17 04:00 99.0 95 21 133/71 99 99.0 10/30/17 00:00 98.7 99 21 134/70 97 98.7 10/29/17 21:00 104 124/75 10/29/17 20:00 97.6 104 21 124/75 95 97.6 10/29/17 15:40 97.7 98 18 129/61 98 Room Air 97.7 10/29/17 12:00 93 Intake and Output 10/29/17 10/30/17 19:00 07:00 Intake Total 485 ml 675 ml Balance 485 ml 675 ml Intake Oral 150 ml IV Total 335 ml 675 ml # Voids 2 1 Laboratory Tests 10/30/17 10:05: White Blood Count 14.6H, Red Blood Count 3.64L, Hemoglobin 9.9L, Hematocrit 30.5L, Mean Corpuscular Volume 84, Mean Corpuscular Hemoglobin 27.2, Mean Corpuscular Hemoglobin Concent 32.5, Red Cell Distribution Width 16.8H, Platelet Count 593H, Mean Platelet Volume 4.7L, Neutrophils (%) (Auto) , Lymphocytes (%) (Auto) , Monocytes (%) (Auto) , Eosinophils (%) (Auto) , Basophils (%) (Auto) , Neutrophils % (Manual) [Pending], Lymphocytes % (Manual) [Pending], Platelet Estimate [Pending], Platelet Morphology [Pending], Sodium Level 132L, Potassium Level 3.1L, Chloride Level 94L, Carbon Dioxide Level 25, Anion Gap 13, Blood Urea Nitrogen 8, Creatinine 0.6, Estimat Glomerular Filtration Rate , Glucose Level 74, Calcium Level 8.9, Total Bilirubin 0.8, Aspartate Amino Transf (AST/SGOT) 81H, Alanine Aminotransferase (ALT/SGPT) 18, Alkaline Phosphatase 67, Total Protein 8.4H, Albumin 2.7L, Globulin 5.7, Albumin /Globulin Ratio 0.5L Height (Feet): 5 Height (Inches): 2.00 Weight (Pounds): 124 General Appearance: no apparent distress EENT: PERRL/EOMI Neck: supple Cardiovascular: normal rate Respiratory/Chest: lungs clear Abdomen: soft Extremities: non-tender Neurologic: escrow processor II-XII grossly normal Dalila Reyes MD Oct 30, 2017 11:37
[2017-10-30] MEDS ORDERED: Milk of Magnesia 30ml Ud ORAL PRN (16:00)
[2017-10-30] MEDS: Milk of Magnesia 30ml Ud ORAL PRN (17:31)
[2017-10-30] MEDS: Docusate 100mg cap ORAL SCH (17:31)
--- NOTE | 2017-10-30 18:10 | General Progress Note ---
Assessment/Plan Status: stable, progressing Assessment/Plan encephalopathy dementia with behavioral dist -zyprexa 2.5mg qhs -haldol im -provided ro/st Subjective Date patient seen: Oct 30, 2017 Neurologic/Psychiatric: Reports: anxiety, depressed, emotional problems Allergies: Coded Allergies: No Known Allergies (Unverified , 06/09/16) Subjective the pt gets agitated at times and was confused. unchanged Objective Last 24 Hour Vital Signs Date Time Temp Pulse Resp B/P (MAP) Pulse Ox O2 Delivery O2 Flow Rate FiO2 10/30/17 16:00 99.5 90 18 137/64 98 Room Air 99.5 10/30/17 12:00 98.2 96 16 149/67 98 Room Air 98.2 10/30/17 09:11 110 143/75 10/30/17 09:09 110 143/75 10/30/17 09:00 143/75 10/30/17 08:00 97.3 112 20 150/77 98 Room Air 97.3 10/30/17 04:00 99.0 95 21 133/71 99 99.0 10/30/17 00:00 98.7 99 21 134/70 97 98.7 10/29/17 21:00 104 124/75 10/29/17 20:00 97.6 104 21 124/75 95 97.6 Intake and Output 10/29/17 10/30/17 18:59 06:59 Intake Total 410 ml 750 ml Balance 410 ml 750 ml Intake Oral 150 ml IV Total 260 ml 750 ml # Voids 2 1 Laboratory Tests 10/30/17 10:05: White Blood Count 14.6H, Red Blood Count 3.64L, Hemoglobin 9.9L, Hematocrit 30.5L, Mean Corpuscular Volume 84, Mean Corpuscular Hemoglobin 27.2, Mean Corpuscular Hemoglobin Concent 32.5, Red Cell Distribution Width 16.8H, Platelet Count 593H, Mean Platelet Volume 4.7L, Neutrophils (%) (Auto) , Lymphocytes (%) (Auto) , Monocytes (%) (Auto) , Eosinophils (%) (Auto) , Basophils (%) (Auto) , Differential Total Cells Counted 100, Neutrophils % ( Manual) 80H, Lymphocytes % (Manual) 9L, Monocytes % (Manual) 9, Eosinophils % ( Manual) 0, Basophils % (Manual) 2, Band Neutrophils 0, Platelet Estimate IncreasedH, Platelet Morphology Normal, Anisocytosis 1+, Sodium Level 132L, Potassium Level 3.1L, Chloride Level 94L, Carbon Dioxide Level 25, Anion Gap 13 , Blood Urea Nitrogen 8, Creatinine 0.6, Estimat Glomerular Filtration Rate , Glucose Level 74, Calcium Level 8.9, Total Bilirubin 0.8, Aspartate Amino Transf (AST/SGOT) 81H, Alanine Aminotransferase (ALT/SGPT) 18, Alkaline Phosphatase 67, Total Protein 8.4H, Albumin 2.7L, Globulin 5.7, Albumin/ Globulin Ratio 0.5L Height (Feet): 5 Height (Inches): 2.00 Weight (Pounds): 124 General Appearance: no apparent distress, alert, confused, agitated Arvin Pollock M.D. Oct 30, 2017 18:10
--- NOTE | 2017-10-30 18:10 | Psych Consult Progress Note ---
Psych Consult Progress Note Consult 10/29/17 encephalopathy dementia with behavioral dist -haldol im -provided ro/st Vital Signs Last 24 Hour Vital Signs Date Time Temp Pulse Resp B/P (MAP) Pulse Ox O2 Delivery O2 Flow Rate FiO2 10/30/17 16:00 99.5 90 18 137/64 98 Room Air 99.5 10/30/17 12:00 98.2 96 16 149/67 98 Room Air 98.2 10/30/17 09:11 110 143/75 10/30/17 09:09 110 143/75 10/30/17 09:00 143/75 10/30/17 08:00 97.3 112 20 150/77 98 Room Air 97.3 10/30/17 04:00 99.0 95 21 133/71 99 99.0 10/30/17 00:00 98.7 99 21 134/70 97 98.7 10/29/17 21:00 104 124/75 10/29/17 20:00 97.6 104 21 124/75 95 97.6 Labs Laboratory Tests Test 10/30/17 10:05 White Blood Count 14.6 K/UL (4.8-10.8) H Red Blood Count 3.64 M/UL (4.20-5.40) L Hemoglobin 9.9 G/DL (12.0-16.0) L Hematocrit 30.5 % (37.0-47.0) L Mean Corpuscular Volume 84 FL (80-99) Mean Corpuscular Hemoglobin 27.2 PG (27.0-31.0) Mean Corpuscular Hemoglobin Concent 32.5 G/DL (32.0-36.0) Red Cell Distribution Width 16.8 % (11.6-14.8) H Platelet Count 593 K/UL (150-450) H Mean Platelet Volume 4.7 FL (6.5-10.1) L Neutrophils (%) (Auto) % (45.0-75.0) Lymphocytes (%) (Auto) % (20.0-45.0) Monocytes (%) (Auto) % (1.0-10.0) Eosinophils (%) (Auto) % (0.0-3.0) Basophils (%) (Auto) % (0.0-2.0) Differential Total Cells Counted 100 Neutrophils % (Manual) 80 % (45-75) H Lymphocytes % (Manual) 9 % (20-45) L Monocytes % (Manual) 9 % (1-10) Eosinophils % (Manual) 0 % (0-3) Basophils % (Manual) 2 % (0-2) Band Neutrophils 0 % (0-8) Platelet Estimate Increased H Platelet Morphology Normal Anisocytosis 1+ Sodium Level 132 MMOL/L (136-145) L Potassium Level 3.1 MMOL/L (3.5-5.1) L Chloride Level 94 MMOL/L (98-107) L Carbon Dioxide Level 25 MMOL/L (21-32) Anion Gap 13 mmol/L (5-15) Blood Urea Nitrogen 8 mg/dL (7-18) Creatinine 0.6 MG/DL (0.55-1.30) Estimat Glomerular Filtration Rate mL/min (>60) Glucose Level 74 MG/DL (74-106) Calcium Level 8.9 MG/DL (8.5-10.1) Total Bilirubin 0.8 MG/DL (0.2-1.0) Aspartate Amino Transf (AST/SGOT) 81 U/L (15-37) H Alanine Aminotransferase (ALT/SGPT) 18 U/L (12-78) Alkaline Phosphatase 67 U/L (46-116) Total Protein 8.4 G/DL (6.4-8.2) H Albumin 2.7 G/DL (3.4-5.0) L Globulin 5.7 g/dL Albumin/Globulin Ratio 0.5 (1.0-2.7) L Medications Current Medications Medications (Trade) Dose Ordered Sig/Richardson Route PRN Reason Start Time Stop Time Status Last Admin Dose Admin Aspirin (ASA) 81 mg DAILY ORAL 10/30/17 09:00 11/26/17 08:59 10/30/17 09:11 Ceftriaxone Sodium 2 gm/ Dextrose 110 ml @ 220 mls/hr DAILY IVPB 10/30/17 09:00 11/04/17 08:59 10/30/17 10:11 Docusate Sodium (Colace) 100 mg TWICE A DAY ORAL 10/30/17 18:00 11/29/17 17:59 10/30/17 17:31 Ferrous Sulfate (Feosol) 325 mg THREE TIMES A DAY ORAL 10/29/17 18:00 5/15/18 08:59 10/30/17 17:31 Haloperidol Lactate (Haldol) 5 mg Q6H PRN IM Agitation 10/29/17 16:45 11/27/17 16:44 Heparin Sodium (Porcine) (Heparin 5000 units/ml) 5,000 units EVERY 12 HOURS SUBQ 10/29/17 21:00 11/26/17 08:59 10/30/17 09:12 Lisinopril (Zestril) 2.5 mg DAILY ORAL 10/30/17 09:00 11/27/17 12:29 Magnesium Hydroxide (Mom) 30 ml DAILYPRN PRN ORAL Constipation 10/30/17 16:30 11/29/17 15:59 10/30/17 17:31 Metoprolol Tartrate (Lopressor) 100 mg Q12HR ORAL 10/29/17 21:00 11/26/17 20:59 10/30/17 09:11 Pantoprazole (Protonix) 40 mg DAILY ORAL 10/30/17 09:00 11/26/17 08:59 10/30/17 09:10 Potassium Chloride (K-Dur) 40 meq DAILY ORAL 10/30/17 09:00 11/27/17 09:29 10/30/17 09:11 Sodium Chloride 1,000 ml @ 75 mls/hr [id number] IV 10/29/17 17:00 11/26/17 16:59 10/29/17 17:03 Arvin Pollock M.D. Oct 30, 2017 18:10
[2017-10-30] MEDS: OLANZapine 2.5mg tab ORAL SCH (20:55)
[2017-10-31] VITALS: BP 144/69
[2017-10-31 04:00] VITALS: BP 143/64
[2017-10-31 08:00] VITALS: BP 131/69
[2017-10-31] MEDS: Lisinopril 2.5mg tab ORAL SCH ×2 (09:00→09:31)
[2017-10-31] MEDS: cefTRIAXone 2 GM in D5W 110 ML IVPB SCH (09:30)
[2017-10-31] MEDS: Aspirin Baby 81mg ORAL SCH (09:31)
[2017-10-31] MEDS: Docusate 100mg cap ORAL SCH ×2 (09:31→17:32)
[2017-10-31] MEDS: Heparin 5000 units/ml inj SUBQ SCH ×2 (09:34→20:43)
[2017-10-31 11:54] VITALS: BP 135/64
--- NOTE | 2017-10-31 15:48 | General Progress Note ---
Assessment/Plan Status: stable Assessment/Plan PHYSICAL EXAMINATION: HEAD AND NECK: Atraumatic and normocephalic. CHEST: Clear to auscultation. No wheezing. No crackles. HEART: S1 and S2. Regular rate and rhythm. No S3. No S4. ABDOMEN: Prominent, no tenderness, bowel sounds are normal. NEUROLOGIC: The patient is awake, alert, and oriented x2. agitated at times. Easily arousable. Cranial nerve deficits cannot be excluded at this time. Limited examination. ASSESSMENT: 1. Acute encephalopathy. 2. Urinary tract infection. 3. Metastatic colon CA. 4. Hyponatremia. 5. Hypertension, uncontrolled. 6. Anemia. 7. GI and DVT prophylaxis. PLAN OF CARE: Plan: Hospice placement. Spoke to Raymon. Mentioned that is not capable to take mother at her home Placement in progress New fever in face of persistent fever, ID consulted Subjective ROS Limited/Unobtainable: Yes - delusional ideation Allergies: Coded Allergies: No Known Allergies (Unverified , 06/09/16) Objective Last 24 Hour Vital Signs Date Time Temp Pulse Resp B/P (MAP) Pulse Ox O2 Delivery O2 Flow Rate FiO2 10/31/17 11:54 97.0 83 20 135/64 97 Room Air 97.0 10/31/17 09:32 95 135/69 10/31/17 08:00 97.1 97 20 131/69 95 Room Air 97.1 10/31/17 04:00 98.3 93 20 143/64 97 98.3 10/31/17 00:00 99.8 101 20 144/69 95 99.8 10/30/17 21:05 98 141/62 10/30/17 20:00 99.8 98 20 141/62 98 99.8 10/30/17 16:00 99.5 90 18 137/64 98 Room Air 99.5 Intake and Output 10/30/17 10/31/17 19:00 07:00 Intake Total 800 ml 750 ml Balance 800 ml 750 ml Intake Oral 800 ml IV Total 750 ml # Voids 4 2 Height (Feet): 5 Height (Inches): 2.00 Weight (Pounds): 124 General Appearance: WD/WN EENT: PERRL/EOMI Neck: supple Cardiovascular: normal rate Respiratory/Chest: lungs clear Abdomen: soft Extremities: non-tender 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
[2017-10-31 16:00] VITALS: BP 146/63
[2017-10-31 20:00] VITALS: BP 152/74
--- NOTE | 2017-10-31 20:00 | Progress Note ---
DATE: 10/31/2017 SUBJECTIVE: The patient is in bed, resting, has episodes of anxiety, confused, disoriented, waxing and waning consciousness. Consciousness is improving. The patient does not have any suicidal or homicidal ideation. MENTAL STATUS EXAMINATION: The patient is confused and disoriented. Mood is neutral. Affect is flat. Thought process, there is a paucity of thought content. Thought content, no suicidal or homicidal ideation. ASSESSMENT: 1. Encephalopathy. 2. Dementia. PLAN: We will continue current medications. Provide the patient with reality orientation. Discussed the case with nurse. Arvin Pollock M.D. DR: WANDY JOB#: [id number] CC:
[2017-10-31] MEDS: OLANZapine 2.5mg tab ORAL SCH (20:40)
[2017-11-01] VITALS: BP 136/74
[2017-11-01 04:00] VITALS: BP 135/80
[2017-11-01 08:00] VITALS: BP 156/86
[2017-11-01] MEDS: cefTRIAXone 2 GM in D5W 110 ML IVPB SCH (08:04)
[2017-11-01] MEDS: Docusate 100mg cap ORAL SCH ×2 (08:06→18:00)
[2017-11-01] MEDS: Lisinopril 2.5mg tab ORAL SCH (08:06)
[2017-11-01] MEDS: Aspirin Baby 81mg ORAL SCH (08:06)
[2017-11-01] MEDS: Heparin 5000 units/ml inj SUBQ SCH ×2 (08:08→20:36)
--- NOTE | 2017-11-01 10:16 | Consultation ---
Consult Note Consult Note [id number] Perry Guzman MD Nov 01, 2017 10:16
[2017-11-01 12:00] VITALS: BP 132/62
--- NOTE | 2017-11-01 13:32 | General Progress Note ---
Assessment/Plan Status: stable, progressing Assessment/Plan encephalopathy dementia with behavioral dist -zyprexa 2.5mg qhs -haldol im -provided ro/st Subjective Date patient seen: Nov 01, 2017 Neurologic/Psychiatric: Reports: anxiety, depressed, emotional problems Allergies: Coded Allergies: No Known Allergies (Unverified , 06/09/16) Subjective the pt gets agitated at times and was confused. unchanged. the pt unable to communicate. Objective Last 24 Hour Vital Signs Date Time Temp Pulse Resp B/P (MAP) Pulse Ox O2 Delivery O2 Flow Rate FiO2 11/01/17 12:00 98.4 77 17 132/62 94 Room Air 98.4 11/01/17 09:04 101.9 11/01/17 08:06 111 156/86 11/01/17 08:06 156/86 11/01/17 08:05 100.8 11/01/17 08:00 100.8 111 19 156/86 96 Room Air 100.8 11/01/17 04:00 98.9 100 20 135/80 98 Room Air 98.9 11/01/17 00:00 98.6 94 20 136/74 95 Room Air 98.6 10/31/17 20:41 100.2 10/31/17 20:40 91 152/74 10/31/17 20:00 100.2 91 20 152/74 98 Room Air 100.2 10/31/17 16:36 101.7 10/31/17 16:00 101.1 101 19 146/63 97 Room Air 101.1 Intake and Output 10/31/17 11/01/17 19:00 07:00 Intake Total 1730 ml Balance 1730 ml Intake Oral 720 ml IV Total 1010 ml # Voids 2 2 Laboratory Tests 11/01/17 13:00: C-Reactive Protein, Quantitative [Pending] Height (Feet): 5 Height (Inches): 2.00 Weight (Pounds): 124 General Appearance: WD/WN, no apparent distress, alert, confused Arvin Pollock M.D. Nov 01, 2017 13:32
[2017-11-01] MEDS ORDERED: Piperacillin/Tazobactam 4.5 GM in D5W 110 ML IVPB SCH (14:00)
[2017-11-01] MEDS: Vancomycin 750mg/NS 250ml IVPB SCH (14:12)
[2017-11-01 16:00] VITALS: BP 143/85
[2017-11-01] MEDS: Piperacillin/Tazobactam 4.5 GM in D5W 110 ML IVPB SCH ×2 (16:39→22:55)
--- NOTE | 2017-11-01 19:15 | Consultation ---
DATE OF CONSULTATION: 11/01/2017 INFECTIOUS DISEASE CONSULT CONSULTING PHYSICIAN: Perry Guzman M.D. REFERRING PHYSICIAN: Dalila Reyes M.D. REASON FOR CONSULTATION: Evaluation of the patient for leukocytosis, fever, and antibiotic management. HISTORY OF PRESENT ILLNESS: The patient is a 77-year-old female with multiple medical problems, as listed below, who was admitted to this medical center from home due to worsening of mental status. The patient was found to have fever, leukocytosis, and Infectious Disease consultation has been requested for further evaluation of the patient and antibiotic management. The patient is not able to provide detailed information. Much of the information is gathered through the chart and speaking to staff. PAST MEDICAL HISTORY: Significant for, 1. History of colon cancer. 2. 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 3. Hypertension. 4. Anemia. 5. 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 MEDICATIONS: IV Rocephin. ALLERGIES: No known drug allergies. SOCIAL HISTORY: The patient resides at home. FAMILY HISTORY: Unavailable. REVIEW OF SYSTEMS: Unobtainable. PHYSICAL EXAMINATION: VITAL SIGNS: Temperature 98 degrees, blood pressure 132/64, pulse 86, respiratory rate 18, and T-max 101.9. HEENT: Mild pale conjunctivae. NECK: No lymphadenopathy. CHEST: Clear. HEART: S1 and S2. ABDOMEN: Soft. EXTREMITIES: No cyanosis. NEUROLOGIC: Lethargic. LABORATORY DATA: White blood cells 14, hemoglobin 9.9, and platelets 593,000. UA, 10 to 15 white blood cells. BUN 8 and creatinine 0.6. AST 81. ALT and alkaline phosphatase within normal range. Hepatitis panel is negative. Urine culture, mixed organisms. ASSESSMENT: The patient is a 77-year-old female with multiple medical problems as listed above, who has, 1. Leukocytosis (most likely due to metastatic cancer). 2. Fever (most likely due to metastatic cancer), urine culture and blood culture have been unremarkable. 3. Doubt post-obstructive pneumonia. The patient does not have any cough. PLAN: 1. We will broaden antibiotic treatment at this point. We will change Rocephin to vancomycin and Zosyn. 2. Monitor CBC. 3. Monitor BMP. 4. We will monitor blood culture and urine culture. 5. Check CRP. 6. Doubt at this time, the patient would benefit from further extensive workups such as CT scan. 7. We will monitor the patient clinically. Based on the patient's clinical course and family wish, we may proceed with further workup . Thank you, Dr. Reyes, for allowing me to participate in the care of this patient. I will follow the patient with you during this hospitalization. Perry Guzman M.D. DR: SONNY JOB#: [id number] CC:
[2017-11-01 20:00] VITALS: BP 146/80
[2017-11-01] MEDS: OLANZapine 2.5mg tab ORAL SCH (20:34)
[2017-11-01] MEDS: Haloperidol 5mg/ml Inj IM PRN (23:24)
[2017-11-02] VITALS: BP_SYST 137; BP_SYST 159; BP_DIAS 77; BP_DIAS 81
[2017-11-02] MEDS: Vancomycin 750mg/NS 250ml IVPB SCH (03:08)
[2017-11-02 04:00] VITALS: BP 133/59
[2017-11-02 08:00] VITALS: BP 118/72
[2017-11-02] MEDS: Piperacillin/Tazobactam 4.5 GM in D5W 110 ML IVPB SCH ×3 (09:04→22:58)
[2017-11-02] MEDS: Aspirin Baby 81mg ORAL SCH (09:05)
[2017-11-02] MEDS: Lisinopril 2.5mg tab ORAL SCH (09:05)
[2017-11-02] MEDS: Docusate 100mg cap ORAL SCH ×2 (09:05→18:03)
[2017-11-02] MEDS: Heparin 5000 units/ml inj SUBQ SCH ×2 (09:06→22:01)
--- NOTE | 2017-11-02 09:31 | General Progress Note ---
Assessment/Plan Status: not improved Assessment/Plan PHYSICAL EXAMINATION: HEAD AND NECK: Atraumatic and normocephalic. CHEST: Clear to auscultation. No wheezing. No crackles. HEART: S1 and S2. Regular rate and rhythm. No S3. No S4. ABDOMEN: Prominent, no tenderness, bowel sounds are normal. NEUROLOGIC: The patient is awake, alert, and oriented x2. agitated at times. Easily arousable. Cranial nerve deficits cannot be excluded at this time. Limited examination. ASSESSMENT: 1. Encephalopathy. multifactorial 2. Urinary tract infection. 3. Metastatic colon CA. 4. Hyponatremia. 5. Hypertension, uncontrolled. 6. Anemia. 7. Dementia 7. GI and DVT prophylaxis. 9. Comfortcare 10 . Sepsis : source unknown PLAN OF CARE: Plan: Hospice placement. Spoke to Raymon. Mentioned that is not capable to take mother at her home Placement in progress Com[facility]. Discussed with ID, Dr Guzman. No additional Diagnostic test at this time deem feasible. Agreed to continue with IV antibiotic for now Subjective ROS Limited/Unobtainable: No Constitutional: Reports: fever HEENT: Reports: no symptoms Cardiovascular: Reports: no symptoms Respiratory: Reports: no symptoms Allergies: Coded Allergies: No Known Allergies (Unverified , 06/09/16) Objective Last 24 Hour Vital Signs Date Time Temp Pulse Resp B/P (MAP) Pulse Ox O2 Delivery O2 Flow Rate FiO2 11/02/17 09:05 82 118/72 11/02/17 09:05 118/72 11/02/17 08:00 97.7 82 20 118/72 96 97.7 11/02/17 04:00 99.4 80 20 133/59 94 Room Air 99.4 11/02/17 00:00 98.1 91 20 159/81 97 Room Air 98.1 11/02/17 00:00 97.5 78 19 137/77 99 Room Air 97.5 11/01/17 20:34 105 146/80 11/01/17 20:00 99.3 105 20 146/80 98 Room Air 99.3 11/01/17 16:00 99.5 97 24 143/85 96 Room Air 99.5 11/01/17 12:00 98.4 77 17 132/62 94 Room Air 98.4 Intake and Output 4/20/18 4/21/18 19:00 07:00 Intake Total 830.000 ml 685.000 ml Balance 830.000 ml 685.000 ml IV Total 830.000 ml 565.000 ml Tube Feeding 120 ml # Voids 4 3 Laboratory Tests 11/01/17 13:00: C-Reactive Protein, Quantitative 48.0H Height (Feet): 5 Height (Inches): 2.00 Weight (Pounds): 124 General Appearance: no apparent distress EENT: PERRL/EOMI Neck: supple Cardiovascular: tachycardia Respiratory/Chest: lungs clear Abdomen: soft Extremities: non-tender 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 Dalila Reyes MD Nov 02, 2017 09:31
--- NOTE | 2017-11-02 11:42 | Infectious Diseases Prog Note ---
Assessment/Plan Assessment/Plan ASSESSMENT: The patient is a 77-year-old female with Leukocytosis (most likely due to metastatic cancer) Fever ( ? metastatic cancer, also ro infection ) improving Doubt post-obstructive pneumonia. no cough Hepatitis panel : negative. Urine culture, mixed organisms. CRP 48 ( 11/01 ) History of colon cancer. 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 Hypertension. Anemia. 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 PLAN: Cont pt on vancomycin and Zosyn d# 2 11/01 SP Rocephin d# 3 Monitor CBC. Monitor BMP. monitor blood culture and urine culture. Doubt at this time, the patient would benefit from further extensive workups such as CT scan. Subjective Constitutional: Denies: no symptoms, fever, chills, fatigue, anorexia, drenching sweats, other Allergies: Coded Allergies: No Known Allergies (Unverified , 06/09/16) Objective Vital Signs Last 24 Hour Vital Signs Date Time Temp Pulse Resp B/P (MAP) Pulse Ox O2 Delivery O2 Flow Rate FiO2 11/02/17 09:05 82 118/72 11/02/17 09:05 118/72 11/02/17 08:00 97.7 82 20 118/72 96 97.7 11/02/17 04:00 99.4 80 20 133/59 94 Room Air 99.4 11/02/17 00:00 98.1 91 20 159/81 97 Room Air 98.1 11/02/17 00:00 97.5 78 19 137/77 99 Room Air 97.5 11/01/17 20:34 105 146/80 11/01/17 20:00 99.3 105 20 146/80 98 Room Air 99.3 11/01/17 16:00 99.5 97 24 143/85 96 Room Air 99.5 11/01/17 12:00 98.4 77 17 132/62 94 Room Air 98.4 Height (Feet): 5 Height (Inches): 2.00 Weight (Pounds): 124 HEENT: anicteric Respiratory/Chest: normal breath sounds Cardiovascular: regular rhythm Abdomen: soft, non tender Microbiology Date/Time Source Procedure Growth Status 11/01/17 15:15 Indwelling Cath Urine Culture - Preliminary NO GROWTH Resulted Laboratory Tests Test 11/01/17 13:00 C-Reactive Protein, Quantitative 48.0 mg/dL (0.00-0.90) H Current Medications Medications (Trade) Dose Ordered Sig/Richardson Route PRN Reason Start Time Stop Time Status Last Admin Dose Admin Acetaminophen (Tylenol) 650 mg Q4H PRN ORAL Mild Pain/Temp > 100.5 10/31/17 16:30 11/30/17 16:29 11/01/17 08:05 Aspirin (ASA) 81 mg DAILY ORAL 10/30/17 09:00 11/26/17 08:59 11/02/17 09:05 Docusate Sodium (Colace) 100 mg TWICE A DAY ORAL 10/30/17 18:00 11/29/17 17:59 11/02/17 09:05 Ferrous Sulfate (Feosol) 325 mg THREE TIMES A DAY ORAL 10/29/17 18:00 11/26/17 08:59 11/02/17 09:05 Haloperidol Lactate (Haldol) 5 mg Q6H PRN IM Agitation 10/29/17 16:45 11/27/17 16:44 11/01/17 23:24 Heparin Sodium (Porcine) (Heparin 5000 units/ml) 5,000 units EVERY 12 HOURS SUBQ 10/29/17 21:00 11/26/17 08:59 11/02/17 09:06 Lisinopril (Zestril) 2.5 mg DAILY ORAL 10/30/17 09:00 11/27/17 12:29 11/02/17 09:05 Magnesium Hydroxide (Mom) 30 ml DAILYPRN PRN ORAL Constipation 10/30/17 16:30 11/29/17 15:59 10/30/17 17:31 Metoprolol Tartrate (Lopressor) 100 mg Q12HR ORAL 10/29/17 21:00 11/26/17 20:59 11/02/17 09:05 Olanzapine (ZyPREXA) 2.5 mg BEDTIME ORAL 10/30/17 21:00 11/29/17 20:59 11/01/17 20:34 Pantoprazole (Protonix) 40 mg DAILY ORAL 10/30/17 09:00 11/26/17 08:59 11/02/17 09:05 Piperacillin Sod/ Tazobactam Sod 4.5 gm/Dextrose 110 ml @ 27.5 mls/hr Q8H IVPB 11/01/17 16:00 11/08/17 15:59 11/02/17 09:04 Potassium Chloride (K-Dur) 40 meq DAILY ORAL 10/30/17 09:00 11/27/17 09:29 11/02/17 09:05 Quetiapine Fumarate (SEROquel) 25 mg Q6HR ORAL 11/02/17 00:00 12/02/17 00:00 11/01/17 23:15 Sodium Chloride 1,000 ml @ 75 mls/hr [id number] IV 10/29/17 17:00 11/26/17 16:59 11/02/17 03:07 Vancomycin HCl (Vanco rx to dose) 1 ea DAILY PRN MISC Per rx protocol 11/01/17 12:45 12/01/17 12:44 Vancomycin/Sodium Chloride 250 ml @ 166.667 mls/hr Q12H IVPB 11/01/17 14:00 11/06/17 13:59 11/02/17 03:08 Perry Guzman MD Nov 02, 2017 11:42
[2017-11-02 12:00] VITALS: BP 128/63
[2017-11-02] MEDS ORDERED: Vancomycin 1250mg/D5W 250ml IVPB ONE (14:00)
[2017-11-02] MEDS ORDERED: Tubing IV Secondary IV ONE (15:42)
[2017-11-02 16:00] VITALS: BP 143/78
[2017-11-02 20:00] VITALS: BP 133/66
[2017-11-02] MEDS: OLANZapine 2.5mg tab ORAL SCH (22:00)
[2017-11-03] VITALS (7 sets, daily range): BP systolic 127–155; BP diastolic 61–79
[2017-11-03] MEDS: Vancomycin 1gm/D5W 275ml IVPB SCH ×4 (02:57→14:20)
[2017-11-03] MEDS: Piperacillin/Tazobactam 4.5 GM in D5W 110 ML IVPB SCH ×3 (08:48→23:11)
[2017-11-03] MEDS: Aspirin Baby 81mg ORAL SCH (08:49)
[2017-11-03] MEDS: Docusate 100mg cap ORAL SCH ×2 (08:50→17:11)
[2017-11-03] MEDS: Lisinopril 2.5mg tab ORAL SCH (08:50)
[2017-11-03] MEDS: Heparin 5000 units/ml inj SUBQ SCH ×2 (08:52→21:22)
[2017-11-03] MEDS: OLANZapine 2.5mg tab ORAL SCH (21:16)
[2017-11-04] VITALS: BP 140/76
[2017-11-04] MEDS: Vancomycin 1gm/D5W 275ml IVPB SCH ×2 (02:17)
[2017-11-04 04:00] VITALS: BP 124/63
[2017-11-04 08:00] VITALS: BP 138/71
[2017-11-04] MEDS: Piperacillin/Tazobactam 4.5 GM in D5W 110 ML IVPB SCH ×2 (08:23→16:03)
[2017-11-04] MEDS: Docusate 100mg cap ORAL SCH ×2 (08:24→18:27)
[2017-11-04] MEDS: Aspirin Baby 81mg ORAL SCH (08:24)
[2017-11-04] MEDS: Lisinopril 2.5mg tab ORAL SCH (08:25)
[2017-11-04] MEDS: Heparin 5000 units/ml inj SUBQ SCH ×2 (08:26→20:19)
--- NOTE | 2017-11-04 11:01 | General Progress Note ---
Assessment/Plan Status: unchanged Assessment/Plan PHYSICAL EXAMINATION: HEAD AND NECK: Atraumatic and normocephalic. CHEST: Clear to auscultation. No wheezing. No crackles. HEART: S1 and S2. Regular rate and rhythm. No S3. No S4. ABDOMEN: Prominent, no tenderness, bowel sounds are normal. NEUROLOGIC: The patient is awake, alert, and oriented x2. agitated at times. Easily arousable. Cranial nerve deficits cannot be excluded at this time. Limited examination. ASSESSMENT: 1. Encephalopathy. multifactorial 2. Urinary tract infection. 3. Metastatic colon CA. 4. Hyponatremia. 5. Hypertension, uncontrolled. 6. Anemia. 7. Dementia 7. GI and DVT prophylaxis. 9. Comfortcare 10 . Sepsis : source unknown PLAN OF CARE: Plan: Hospice placement. Spoke to Raymon. Mentioned that is not capable to take mother at her home Placement in progress [facility]. Discussed with ID, Dr Guzman. No additional Diagnostic test at this time deemed feasible. Agreed to continue with only Empirical broad spectrum IV antibiotic Subjective ROS Limited/Unobtainable: No Constitutional: Reports: no symptoms HEENT: Reports: no symptoms Cardiovascular: Reports: no symptoms Allergies: Coded Allergies: No Known Allergies (Unverified , 06/09/16) Objective Last 24 Hour Vital Signs Date Time Temp Pulse Resp B/P (MAP) Pulse Ox O2 Delivery O2 Flow Rate FiO2 11/04/17 08:25 138/71 11/04/17 08:24 101 138/71 11/04/17 08:00 97.1 101 19 138/71 97 Room Air 97.1 11/04/17 04:00 99.1 88 20 124/63 97 99.1 11/04/17 00:00 99.2 94 20 140/76 98 Room Air 99.2 11/03/17 21:16 98 146/76 11/03/17 20:30 101.1 98 20 146/76 98 101.1 11/03/17 20:00 101.1 98 20 127/63 98 101.1 11/03/17 16:00 98.0 106 20 155/79 96 Room Air 98.0 11/03/17 12:00 98.2 91 20 152/75 95 Room Air 98.2 Intake and Output 11/03/17 11/04/17 18:59 06:59 Intake Total 970.000 ml 1242.416 ml Balance 970.000 ml 1242.416 ml Intake Oral 360 ml 560 ml IV Total 610.000 ml 682.416 ml # Voids 3 3 # Bowel Movements 1 Laboratory Tests 11/04/17 01:00: Vancomycin Level Trough 11.7 Height (Feet): 5 Height (Inches): 2.00 Weight (Pounds): 124 General Appearance: no apparent distress EENT: PERRL/EOMI Neck: supple Cardiovascular: normal rate Respiratory/Chest: lungs clear Abdomen: soft Extremities: non-tender Neurologic: disoriented, other - paranoid ideation Dalila Reyes MD Nov 04, 2017 11:01
[2017-11-04 12:00] VITALS: BP 154/76
--- NOTE | 2017-11-04 12:09 | Infectious Diseases Prog Note ---
Assessment/Plan Assessment/Plan ASSESSMENT: The patient is a 77-year-old female with Leukocytosis (most likely due to metastatic cancer); stable Fever, intermitent ( ? metastatic cancer, also ro infection ) improving Doubt post-obstructive pneumonia. no cough Hepatitis panel : negative. Urine culture, mixed organisms.; repeast ucx neg CRP 48 ( 11/01 ) Bcx NTD History of colon cancer. 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 Hypertension. Anemia. 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 PLAN: -d/c empiric IV Vanco #4 -continue empiric Zosyn d# 4/5 --11/01 SP Rocephin d# 3 Monitor CBC. Monitor BMP. monitor blood culture Doubt at this time, the patient would benefit from further extensive workups such as CT scan. discussion for hospice ongoing Subjective Allergies: Coded Allergies: No Known Allergies (Unverified , 06/09/16) Subjective intermittent fever, Tm 101.1; afebrile> 12hrs leukocytosis stable at 14 bcx and ucx NTD Objective Vital Signs Last 24 Hour Vital Signs Date Time Temp Pulse Resp B/P (MAP) Pulse Ox O2 Delivery O2 Flow Rate FiO2 11/04/17 08:25 138/71 11/04/17 08:24 101 138/71 11/04/17 08:00 97.1 101 19 138/71 97 Room Air 97.1 11/04/17 04:00 99.1 88 20 124/63 97 99.1 11/04/17 00:00 99.2 94 20 140/76 98 Room Air 99.2 11/03/17 21:16 98 146/76 11/03/17 20:30 101.1 98 20 146/76 98 101.1 11/03/17 20:00 101.1 98 20 127/63 98 101.1 11/03/17 16:00 98.0 106 20 155/79 96 Room Air 98.0 11/03/17 12:00 98.2 91 20 152/75 95 Room Air 98.2 Height (Feet): 5 Height (Inches): 2.00 Weight (Pounds): 124 Objective HEENT: anicteric Respiratory/Chest: normal breath sounds Cardiovascular: regular rhythm Abdomen: soft, non tender Microbiology Date/Time Source Procedure Growth Status 11/01/17 13:15 Blood Blood Culture - Preliminary NO GROWTH AFTER 48 HOURS Resulted 11/01/17 13:00 Blood Blood Culture - Preliminary NO GROWTH AFTER 48 HOURS Resulted 11/01/17 15:15 Indwelling Cath Urine Culture - Final NO GROWTH AFTER 48 HOURS Complete Laboratory Tests Test 11/04/17 01:00 Vancomycin Level Trough 11.7 ug/mL (5.0-12.0) Current Medications Medications (Trade) Dose Ordered Sig/Richardson Route PRN Reason Start Time Stop Time Status Last Admin Dose Admin Acetaminophen (Tylenol) 650 mg Q4H PRN ORAL Mild Pain/Temp > 100.5 10/31/17 16:30 11/30/17 16:29 11/01/17 08:05 Aspirin (ASA) 81 mg DAILY ORAL 10/30/17 09:00 11/26/17 08:59 11/04/17 08:24 Docusate Sodium (Colace) 100 mg TWICE A DAY ORAL 10/30/17 18:00 11/29/17 17:59 11/04/17 08:24 Ferrous Sulfate (Feosol) 325 mg THREE TIMES A DAY ORAL 10/29/17 18:00 11/26/17 08:59 11/04/17 08:24 Haloperidol Lactate (Haldol) 5 mg Q6H PRN IM Agitation 10/29/17 16:45 11/27/17 16:44 11/01/17 23:24 Heparin Sodium (Porcine) (Heparin 5000 units/ml) 5,000 units EVERY 12 HOURS SUBQ 10/29/17 21:00 11/26/17 08:59 11/04/17 08:26 Lisinopril (Zestril) 2.5 mg DAILY ORAL 10/30/17 09:00 11/27/17 12:29 11/04/17 08:25 Magnesium Hydroxide (Mom) 30 ml DAILYPRN PRN ORAL Constipation 10/30/17 16:30 11/29/17 15:59 10/30/17 17:31 Metoprolol Tartrate (Lopressor) 100 mg Q12HR ORAL 10/29/17 21:00 11/26/17 20:59 11/04/17 08:24 Olanzapine (ZyPREXA) 2.5 mg BEDTIME ORAL 10/30/17 21:00 11/29/17 20:59 11/03/17 21:16 Pantoprazole (Protonix) 40 mg DAILY ORAL 10/30/17 09:00 11/26/17 08:59 11/04/17 08:24 Piperacillin Sod/ Tazobactam Sod 4.5 gm/Dextrose 110 ml @ 27.5 mls/hr Q8H IVPB 11/01/17 16:00 11/08/17 15:59 11/04/17 08:23 Potassium Chloride (K-Dur) 40 meq DAILY ORAL 10/30/17 09:00 11/27/17 09:29 11/04/17 08:25 Quetiapine Fumarate (SEROquel) 25 mg Q6HR ORAL 11/02/17 00:00 12/02/17 00:00 11/04/17 06:16 Sodium Chloride 1,000 ml @ 75 mls/hr [id number] IV 10/29/17 17:00 11/26/17 16:59 11/04/17 06:16 Vancomycin HCl (Vanco rx to dose) 1 ea DAILY PRN MISC Per rx protocol 11/01/17 12:45 12/01/17 12:44 Vancomycin HCl/ Dextrose 250 ml @ 166.667 mls/hr Q12H IVPB 11/04/17 14:00 11/09/17 13:59 Essence Trent M.D. Nov 04, 2017 12:09
[2017-11-04] MEDS ORDERED: Vancomycin 1250mg/D5W 250ml IVPB SCH (14:00)
[2017-11-04 15:48] VITALS: BP 127/72
[2017-11-04 20:00] VITALS: BP 118/59
[2017-11-04] MEDS: OLANZapine 2.5mg tab ORAL SCH (20:17)
--- NOTE | 2017-11-04 22:20 | Geriatric Progress Note ---
Assessment/Plan Assessment/Plan encephalopathy dementia with behavioral dist -zyprexa 2.5mg qhs -haldol im -provided ro/st Subjective Interval Events 11/03/17 Mood/Memory: Reports: prior hx, anxiety, depressed feelings Geriatric Geriatric Last 24 Hour Vital Signs Date Time Temp Pulse Resp B/P (MAP) Pulse Ox O2 Delivery O2 Flow Rate FiO2 11/04/17 20:18 107 115/59 11/04/17 20:00 99.3 107 18 118/59 97 99.3 11/04/17 15:48 97.1 99 21 127/72 97 Room Air 97.1 11/04/17 12:00 98.9 87 20 154/76 98 Room Air 98.9 11/04/17 08:25 138/71 11/04/17 08:24 101 138/71 11/04/17 08:00 97.1 101 19 138/71 97 Room Air 97.1 11/04/17 04:00 99.1 88 20 124/63 97 99.1 11/04/17 00:00 99.2 94 20 140/76 98 Room Air 99.2 Intake and Output 11/03/17 11/04/17 19:00 07:00 Intake Total 970.000 ml 1242.416 ml Balance 970.000 ml 1242.416 ml Intake Oral 360 ml 560 ml IV Total 610.000 ml 682.416 ml # Voids 3 3 # Bowel Movements 1 Laboratory Tests Test 11/04/17 01:00 Vancomycin Level Trough 11.7 ug/mL (5.0-12.0) Current Medications Medications (Trade) Dose Ordered Sig/Richardson Route PRN Reason Start Time Stop Time Status Last Admin Dose Admin Acetaminophen (Tylenol) 650 mg Q4H PRN ORAL Mild Pain/Temp > 100.5 10/31/17 16:30 11/30/17 16:29 11/01/17 08:05 Aspirin (ASA) 81 mg DAILY ORAL 10/30/17 09:00 11/26/17 08:59 11/04/17 08:24 Docusate Sodium (Colace) 100 mg TWICE A DAY ORAL 10/30/17 18:00 11/29/17 17:59 11/04/17 18:27 Ferrous Sulfate (Feosol) 325 mg THREE TIMES A DAY ORAL 10/29/17 18:00 11/26/17 08:59 11/04/17 18:27 Haloperidol Lactate (Haldol) 5 mg Q6H PRN IM Agitation 10/29/17 16:45 11/27/17 16:44 11/01/17 23:24 Heparin Sodium (Porcine) (Heparin 5000 units/ml) 5,000 units EVERY 12 HOURS SUBQ 10/29/17 21:00 11/26/17 08:59 11/04/17 20:19 Lisinopril (Zestril) 2.5 mg DAILY ORAL 10/30/17 09:00 11/27/17 12:29 11/04/17 08:25 Magnesium Hydroxide (Mom) 30 ml DAILYPRN PRN ORAL Constipation 10/30/17 16:30 11/29/17 15:59 10/30/17 17:31 Metoprolol Tartrate (Lopressor) 100 mg Q12HR ORAL 10/29/17 21:00 11/26/17 20:59 11/04/17 20:18 Olanzapine (ZyPREXA) 2.5 mg BEDTIME ORAL 10/30/17 21:00 11/29/17 20:59 11/04/17 20:17 Ondansetron HCl (Zofran) 4 mg Q6H PRN IVP Nausea & Vomiting 11/04/17 14:30 12/04/17 14:29 11/04/17 15:07 Pantoprazole (Protonix) 40 mg DAILY ORAL 10/30/17 09:00 11/26/17 08:59 11/04/17 08:24 Piperacillin Sod/ Tazobactam Sod 4.5 gm/Dextrose 110 ml @ 27.5 mls/hr Q8H IVPB 11/01/17 16:00 11/08/17 15:59 11/04/17 16:03 Potassium Chloride (K-Dur) 40 meq DAILY ORAL 10/30/17 09:00 11/27/17 09:29 11/04/17 08:25 Quetiapine Fumarate (SEROquel) 25 mg Q6HR ORAL 11/02/17 00:00 12/02/17 00:00 11/04/17 18:27 Sodium Chloride 1,000 ml @ 75 mls/hr [id number] IV 10/29/17 17:00 11/26/17 16:59 11/04/17 19:57 Height (Feet): 5 Height (Inches): 2.00 Weight (Pounds): 124 General Appearance: well appearing, well dressed Neurologic: alert, responsive Arvin Pollock M.D. Nov 04, 2017 22:20
--- NOTE | 2017-11-04 22:21 | General Progress Note ---
Assessment/Plan Problem List: (1) Altered mental status ICD Codes: R41.82 - Altered mental status, unspecified SNOMED: 444824013 (2) Agitated ICD Codes: R45.1 - Restlessness and agitation SNOMED: 993358327 Assessment/Plan encephalopathy resolved -zyprexa 2.5mg qhs -haldol im -provided ro/st Subjective Date patient seen: Nov 04, 2017 Neurologic/Psychiatric: Reports: anxiety Allergies: Coded Allergies: No Known Allergies (Unverified , 06/09/16) Subjective the pt is doing better. alert and oriented person, place and situation Objective Last 24 Hour Vital Signs Date Time Temp Pulse Resp B/P (MAP) Pulse Ox O2 Delivery O2 Flow Rate FiO2 11/04/17 20:18 107 115/59 11/04/17 20:00 99.3 107 18 118/59 97 99.3 11/04/17 15:48 97.1 99 21 127/72 97 Room Air 97.1 11/04/17 12:00 98.9 87 20 154/76 98 Room Air 98.9 11/04/17 08:25 138/71 11/04/17 08:24 101 138/71 11/04/17 08:00 97.1 101 19 138/71 97 Room Air 97.1 11/04/17 04:00 99.1 88 20 124/63 97 99.1 11/04/17 00:00 99.2 94 20 140/76 98 Room Air 99.2 Intake and Output 11/03/17 11/04/17 19:00 07:00 Intake Total 970.000 ml 1242.416 ml Balance 970.000 ml 1242.416 ml Intake Oral 360 ml 560 ml IV Total 610.000 ml 682.416 ml # Voids 3 3 # Bowel Movements 1 Laboratory Tests 11/04/17 01:00: Vancomycin Level Trough 11.7 Height (Feet): 5 Height (Inches): 2.00 Weight (Pounds): 124 General Appearance: no apparent distress, alert Neurologic: oriented x 3, responsive, depressed affect Arvin Pollock M.D. Nov 04, 2017 22:21
[2017-11-05] VITALS (8 sets, daily range): BP systolic 119–148; BP diastolic 67–81
[2017-11-05] MEDS: Piperacillin/Tazobactam 4.5 GM in D5W 110 ML IVPB SCH ×4 (00:05→23:54)
[2017-11-05] MEDS: Lisinopril 2.5mg tab ORAL SCH (08:14)
[2017-11-05] MEDS: Aspirin Baby 81mg ORAL SCH (08:15)
[2017-11-05] MEDS: Docusate 100mg cap ORAL SCH ×2 (08:15→17:11)
[2017-11-05] MEDS: Heparin 5000 units/ml inj SUBQ SCH ×2 (08:17→20:38)
[2017-11-05] MEDS: Haloperidol 5mg/ml Inj IM PRN (15:41)
--- NOTE | 2017-11-05 15:56 | Infectious Diseases Prog Note ---
Assessment/Plan Assessment/Plan ASSESSMENT: The patient is a 77-year-old female with Leukocytosis (most likely due to metastatic cancer); stable, No cbc today Fever, intermitent ( ? metastatic cancer, also ro infection ) improving Doubt post-obstructive pneumonia. no cough Hepatitis panel : negative. Urine culture, mixed organisms.; repeast ucx neg CRP 48 ( 11/01 ) Bcx NTD History of colon cancer. 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 Hypertension. Anemia. 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 PLAN: -continue empiric Zosyn d# 5/5 --11/04 SP IV Vanco #4 --11/01 SP Rocephin d# 3 Monitor CBC. Monitor BMP. monitor blood culture Doubt at this time, the patient would benefit from further extensive workups such as CT scan. discussion for hospice ongoing CBC,CMP am Subjective Allergies: Coded Allergies: No Known Allergies (Unverified , 06/09/16) Subjective fever curve improving, Tm 100.1, afebrile >12hr no recent labs Bcx NTD Objective Vital Signs Last 24 Hour Vital Signs Date Time Temp Pulse Resp B/P (MAP) Pulse Ox O2 Delivery O2 Flow Rate FiO2 11/05/17 15:33 98.4 107 20 122/67 98 98.4 11/05/17 12:00 97.7 110 20 139/75 100 97.7 11/05/17 08:20 97.0 113 16 148/81 99 97.0 11/05/17 08:16 113 148/87 11/05/17 08:14 148/81 11/05/17 04:00 97.8 97 20 143/77 98 Room Air 97.8 11/05/17 01:20 98.2 11/05/17 00:30 98.2 99 20 127/76 96 Room Air 98.2 11/05/17 00:21 100.3 11/05/17 00:00 100.3 90 18 137/67 95 100.3 11/04/17 20:18 107 115/59 11/04/17 20:00 99.3 107 18 118/59 97 99.3 Height (Feet): 5 Height (Inches): 2.00 Weight (Pounds): 124 Objective HEENT: anicteric Respiratory/Chest: normal breath sounds Cardiovascular: regular rhythm Abdomen: soft, non tender Current Medications Medications (Trade) Dose Ordered Sig/Richardson Route PRN Reason Start Time Stop Time Status Last Admin Dose Admin Acetaminophen (Tylenol) 650 mg Q4H PRN ORAL Mild Pain/Temp > 100.5 10/31/17 16:30 11/30/17 16:29 11/05/17 00:21 Aspirin (ASA) 81 mg DAILY ORAL 10/30/17 09:00 11/26/17 08:59 11/05/17 08:15 Docusate Sodium (Colace) 100 mg TWICE A DAY ORAL 10/30/17 18:00 11/29/17 17:59 11/05/17 08:15 Ferrous Sulfate (Feosol) 325 mg THREE TIMES A DAY ORAL 10/29/17 18:00 11/26/17 08:59 11/05/17 11:59 Haloperidol Lactate (Haldol) 5 mg Q6H PRN IM Agitation 10/29/17 16:45 11/27/17 16:44 11/05/17 15:41 Heparin Sodium (Porcine) (Heparin 5000 units/ml) 5,000 units EVERY 12 HOURS SUBQ 10/29/17 21:00 11/26/17 08:59 11/05/17 08:17 Lisinopril (Zestril) 2.5 mg DAILY ORAL 10/30/17 09:00 11/27/17 12:29 11/05/17 08:14 Magnesium Hydroxide (Mom) 30 ml DAILYPRN PRN ORAL Constipation 10/30/17 16:30 11/29/17 15:59 10/30/17 17:31 Metoprolol Tartrate (Lopressor) 100 mg Q12HR ORAL 10/29/17 21:00 11/26/17 20:59 11/05/17 08:16 Olanzapine (ZyPREXA) 2.5 mg BEDTIME ORAL 10/30/17 21:00 11/29/17 20:59 11/04/17 20:17 Ondansetron HCl (Zofran) 4 mg Q6H PRN IVP Nausea & Vomiting 11/04/17 14:30 12/04/17 14:29 11/04/17 15:07 Pantoprazole (Protonix) 40 mg DAILY ORAL 10/30/17 09:00 11/26/17 08:59 11/05/17 08:15 Piperacillin Sod/ Tazobactam Sod 4.5 gm/Dextrose 110 ml @ 27.5 mls/hr Q8H IVPB 11/01/17 16:00 11/08/17 15:59 11/05/17 15:41 Potassium Chloride (K-Dur) 40 meq DAILY ORAL 10/30/17 09:00 11/27/17 09:29 11/05/17 08:13 Quetiapine Fumarate (SEROquel) 25 mg Q6HR ORAL 11/02/17 00:00 12/02/17 00:00 11/05/17 11:59 Sodium Chloride 1,000 ml @ 75 mls/hr [id number] IV 10/29/17 17:00 11/26/17 16:59 11/05/17 08:13 Essence Trent M.D. Nov 05, 2017 15:56
[2017-11-05] MEDS: OLANZapine 2.5mg tab ORAL SCH (20:36)
--- NOTE | 2017-11-05 23:40 | General Progress Note ---
Assessment/Plan Problem List: (1) Altered mental status ICD Codes: R41.82 - Altered mental status, unspecified SNOMED: 706222331 (2) Agitated ICD Codes: R45.1 - Restlessness and agitation SNOMED: 366942398 Status: stable Assessment/Plan encephalopathy resolved -zyprexa 2.5mg qhs -haldol im -provided ro/st Subjective Date patient seen: Nov 05, 2017 Neurologic/Psychiatric: Reports: anxiety, depressed Allergies: Coded Allergies: No Known Allergies (Unverified , 06/09/16) Subjective the pt is more confused today Objective Last 24 Hour Vital Signs Date Time Temp Pulse Resp B/P (MAP) Pulse Ox O2 Delivery O2 Flow Rate FiO2 11/05/17 20:37 111 137/73 11/05/17 20:00 99.4 111 18 119/70 100 99.4 11/05/17 16:08 110 137/71 11/05/17 15:33 98.4 107 20 122/67 98 98.4 11/05/17 12:00 97.7 110 20 139/75 100 97.7 11/05/17 08:20 97.0 113 16 148/81 99 97.0 11/05/17 08:16 113 148/87 11/05/17 08:14 148/81 11/05/17 04:00 97.8 97 20 143/77 98 Room Air 97.8 11/05/17 01:20 98.2 11/05/17 00:30 98.2 99 20 127/76 96 Room Air 98.2 11/05/17 00:21 100.3 11/05/17 00:00 100.3 90 18 137/67 95 100.3 Intake and Output 11/04/17 11/05/17 19:00 07:00 Intake Total 1260.0 ml 1367.5 ml Balance 1260.0 ml 1367.5 ml Intake Oral 720 ml 780 ml IV Total 540.0 ml 587.5 ml # Voids 2 4 # Bowel Movements 1 Height (Feet): 5 Height (Inches): 2.00 Weight (Pounds): 124 General Appearance: no apparent distress, alert, confused Arvin Pollock M.D. Nov 05, 2017 23:40
[2017-11-06] VITALS: BP 143/75
[2017-11-06 04:00] VITALS: BP 123/61
[2017-11-06 08:00] VITALS: BP 124/68
[2017-11-06] MEDS: Piperacillin/Tazobactam 4.5 GM in D5W 110 ML IVPB SCH (08:11)
[2017-11-06 08:20] LABS: HEMATOCRIT 20.9 % (37.0-47.0); HEMOGLOBIN 7.1 G/DL (12.0-16.0); MEAN CORPUSCULAR VOLUME 86 FL (80-99); PLATELET COUNT 376 K/UL (150-450); RED BLOOD COUNT 2.44 M/UL (4.20-5.40); RED CELL DISTRIBUTION WIDTH 16.9 % (11.6-14.8); WHITE BLOOD COUNT 18.3 K/UL (4.8-10.8)
[2017-11-06 08:37] LABS: ALANINE AMINOTRANSFERASE 14 U/L (12-78); ALBUMIN/GLOBULIN RATIO 0.4 (1.0-2.7); ALKALINE PHOSPHATASE 51 U/L (46-116); ANION GAP 7 mmol/L (5-15); ASPARTATE AMINO TRANSFERASE 58 U/L (15-37); BILIRUBIN,TOTAL 0.5 MG/DL (0.2-1.0); BLOOD UREA NITROGEN 10 mg/dL (7-18); CALCIUM 8.1 MG/DL (8.5-10.1); CARBON DIOXIDE 29 MMOL/L (21-32); CHLORIDE 105 MMOL/L (98-107); CREATININE 0.8 MG/DL (0.55-1.30); POTASSIUM 3.5 MMOL/L (3.5-5.1); SODIUM 141 MMOL/L (136-145)
[2017-11-06] MEDS: Docusate 100mg cap ORAL SCH ×2 (09:00→17:38)
[2017-11-06] MEDS: Aspirin Baby 81mg ORAL SCH ×3 (09:00→10:11)
[2017-11-06] MEDS: Heparin 5000 units/ml inj SUBQ SCH ×2 (09:00→20:28)
[2017-11-06] MEDS: Lisinopril 2.5mg tab ORAL SCH ×3 (09:47→11:06)
[2017-11-06 12:00] VITALS: BP 167/91
[2017-11-06 16:00] VITALS: BP 142/78
--- NOTE | 2017-11-06 16:11 | General Progress Note ---
Assessment/Plan Status: stable, unchanged Assessment/Plan PHYSICAL EXAMINATION: HEAD AND NECK: Atraumatic and normocephalic. CHEST: Clear to auscultation. No wheezing. No crackles. HEART: S1 and S2. Regular rate and rhythm. No S3. No S4. ABDOMEN: Prominent, no tenderness, bowel sounds are normal. NEUROLOGIC: The patient is awake, Not alert . agitated at times. Easily arousal. Cranial nerve deficits cannot be excluded at this time. Limited examination. ASSESSMENT: 1. Encephalopathy. multifactorial 2. Urinary tract infection. 3. Metastatic colon CA. 4. Hyponatremia. 5. Hypertension, uncontrolled. 6. Anemia. 7. Dementia 7. GI and DVT prophylaxis. 9. [facility] 10 . Sepsis : source unknown PLAN OF CARE: Plan: Hospice placement. Spoke to [facility]. Mentioned that is not capable to take mother at her home Placement in progress [facility]. No additional lab test Ok to DC IV line, as patient refusal and complaints of pain at the site. OK to switch meds from IV to PO Subjective ROS Limited/Unobtainable: No - complains of pain at the IV site on left hand Allergies: Coded Allergies: No Known Allergies (Unverified , 06/09/16) Objective Last 24 Hour Vital Signs Date Time Temp Pulse Resp B/P (MAP) Pulse Ox O2 Delivery O2 Flow Rate FiO2 11/06/17 12:00 20 167/91 95 Room Air 11/06/17 11:06 86 146/75 11/06/17 11:06 146/75 11/06/17 08:00 99.1 114 14 124/68 99 Room Air 99.1 11/06/17 04:00 99.3 96 18 123/61 96 99.3 11/06/17 00:00 99.4 96 19 143/75 96 99.4 11/05/17 20:37 111 137/73 11/05/17 20:00 99.4 111 18 119/70 100 99.4 11/05/17 16:08 110 137/71 Intake and Output 11/05/17 11/06/17 19:00 07:00 Intake Total 1245 ml 635.0 ml Balance 1245 ml 635.0 ml Intake Oral 720 ml IV Total 525 ml 635.0 ml # Voids 3 4 # Bowel Movements 2 3 Laboratory Tests 11/06/17 07:47: White Blood Count 18.3H, Red Blood Count 2.44L, Hemoglobin 7.1L, Hematocrit 20.9L, Mean Corpuscular Volume 86, Mean Corpuscular Hemoglobin 29.0, Mean Corpuscular Hemoglobin Concent 33.9, Red Cell Distribution Width 16.9H, Platelet Count 376, Mean Platelet Volume 5.4L, Neutrophils (%) (Auto) , Lymphocytes (%) (Auto) , Monocytes (%) (Auto) , Eosinophils (%) (Auto) , Basophils (%) (Auto) , Differential Total Cells Counted 100, Neutrophils % ( Manual) 92H, Lymphocytes % (Manual) 5L, Monocytes % (Manual) 2, Eosinophils % ( Manual) 1, Basophils % (Manual) 0, Band Neutrophils 0, Platelet Estimate Adequate, Platelet Morphology Normal, Hypochromasia 1+, Anisocytosis 1+, Sodium Level 141, Potassium Level 3.5, Chloride Level 105, Carbon Dioxide Level 29, Anion Gap 7, Blood Urea Nitrogen 10, Creatinine 0.8, Estimat Glomerular Filtration Rate , Glucose Level 127H, Calcium Level 8.1L, Total Bilirubin 0.5, Aspartate Amino Transf (AST/SGOT) 58H, Alanine Aminotransferase (ALT/SGPT) 14, Alkaline Phosphatase 51, Total Protein 7.2, Albumin 2.0L, Globulin 5.2, Albumin/ Globulin Ratio 0.4L Height (Feet): 5 Height (Inches): 2.00 Weight (Pounds): 124 General Appearance: no apparent distress EENT: PERRL/EOMI, scleral icterus Neck: supple Cardiovascular: normal rate, regular rhythm, tachycardia Respiratory/Chest: lungs clear Abdomen: soft Extremities: non-tender, other - limited exmam, no gross lateral motor deficiet Neurologic: disoriented, other - agitated, not alert, delusional ideation Dalila Reyes MD Nov 06, 2017 16:11
--- NOTE | 2017-11-06 16:16 | Infectious Diseases Prog Note ---
Assessment/Plan Assessment/Plan ASSESSMENT: The patient is a 77-year-old female with Leukocytosis (most likely due to metastatic cancer); increasing- r/o SHANIA Fever, intermitent ( ? metastatic cancer, also ro infection ) improving Doubt post-obstructive pneumonia. no cough Hepatitis panel : negative. Urine culture, mixed organisms.; repeast ucx neg CRP 48 ( 11/01 ) Bcx Neg History of colon cancer. 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 Hypertension. Anemia. 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 PLAN: -continue to monitor off abx --11/06 SP empiric Zosyn #5 --11/04 SP IV Vanco #4 --11/01 SP Rocephin d# 3 -CXR, u/a w reflex -cdiff if diarrhea Monitor CBC. Monitor BMP. monitor blood culture Doubt at this time, the patient would benefit from further extensive workups such as CT scan. discussion for hospice ongoing CRP am Subjective Allergies: Coded Allergies: No Known Allergies (Unverified , 06/09/16) Subjective afebrile ~36hrs WBC increased Bcx NTD Objective Vital Signs Last 24 Hour Vital Signs Date Time Temp Pulse Resp B/P (MAP) Pulse Ox O2 Delivery O2 Flow Rate FiO2 11/06/17 12:00 20 167/91 95 Room Air 11/06/17 11:06 86 146/75 11/06/17 11:06 146/75 11/06/17 08:00 99.1 114 14 124/68 99 Room Air 99.1 11/06/17 04:00 99.3 96 18 123/61 96 99.3 11/06/17 00:00 99.4 96 19 143/75 96 99.4 11/05/17 20:37 111 137/73 11/05/17 20:00 99.4 111 18 119/70 100 99.4 Height (Feet): 5 Height (Inches): 2.00 Weight (Pounds): 124 Objective HEENT: anicteric Respiratory/Chest: normal breath sounds Cardiovascular: regular rhythm Abdomen: soft, non tender Laboratory Tests Test 11/06/17 07:47 White Blood Count 18.3 K/UL (4.8-10.8) H Red Blood Count 2.44 M/UL (4.20-5.40) L Hemoglobin 7.1 G/DL (12.0-16.0) L Hematocrit 20.9 % (37.0-47.0) L Mean Corpuscular Volume 86 FL (80-99) Mean Corpuscular Hemoglobin 29.0 PG (27.0-31.0) Mean Corpuscular Hemoglobin Concent 33.9 G/DL (32.0-36.0) Red Cell Distribution Width 16.9 % (11.6-14.8) H Platelet Count 376 K/UL (150-450) Mean Platelet Volume 5.4 FL (6.5-10.1) L Neutrophils (%) (Auto) % (45.0-75.0) Lymphocytes (%) (Auto) % (20.0-45.0) Monocytes (%) (Auto) % (1.0-10.0) Eosinophils (%) (Auto) % (0.0-3.0) Basophils (%) (Auto) % (0.0-2.0) Differential Total Cells Counted 100 Neutrophils % (Manual) 92 % (45-75) H Lymphocytes % (Manual) 5 % (20-45) L Monocytes % (Manual) 2 % (1-10) Eosinophils % (Manual) 1 % (0-3) Basophils % (Manual) 0 % (0-2) Band Neutrophils 0 % (0-8) Platelet Estimate Adequate Platelet Morphology Normal Hypochromasia 1+ Anisocytosis 1+ Sodium Level 141 MMOL/L (136-145) Potassium Level 3.5 MMOL/L (3.5-5.1) Chloride Level 105 MMOL/L (98-107) Carbon Dioxide Level 29 MMOL/L (21-32) Anion Gap 7 mmol/L (5-15) Blood Urea Nitrogen 10 mg/dL (7-18) Creatinine 0.8 MG/DL (0.55-1.30) Estimat Glomerular Filtration Rate mL/min (>60) Glucose Level 127 MG/DL (74-106) H Calcium Level 8.1 MG/DL (8.5-10.1) L Total Bilirubin 0.5 MG/DL (0.2-1.0) Aspartate Amino Transf (AST/SGOT) 58 U/L (15-37) H Alanine Aminotransferase (ALT/SGPT) 14 U/L (12-78) Alkaline Phosphatase 51 U/L (46-116) Total Protein 7.2 G/DL (6.4-8.2) Albumin 2.0 G/DL (3.4-5.0) L Globulin 5.2 g/dL Albumin/Globulin Ratio 0.4 (1.0-2.7) L Current Medications Medications (Trade) Dose Ordered Sig/Richardson Route PRN Reason Start Time Stop Time Status Last Admin Dose Admin Acetaminophen (Tylenol) 650 mg Q4H PRN ORAL Mild Pain/Temp > 100.5 10/31/17 16:30 11/30/17 16:29 11/05/17 00:21 Aspirin (ASA) 81 mg DAILY ORAL 10/30/17 09:00 11/26/17 08:59 11/05/17 08:15 Docusate Sodium (Colace) 100 mg TWICE A DAY ORAL 10/30/17 18:00 11/29/17 17:59 11/05/17 17:11 Ferrous Sulfate (Feosol) 325 mg THREE TIMES A DAY ORAL 10/29/17 18:00 11/26/17 08:59 11/05/17 17:11 Haloperidol Lactate (Haldol) 5 mg Q6H PRN IM Agitation 10/29/17 16:45 11/27/17 16:44 11/05/17 15:41 Heparin Sodium (Porcine) (Heparin 5000 units/ml) 5,000 units EVERY 12 HOURS SUBQ 10/29/17 21:00 11/26/17 08:59 11/05/17 20:38 Lisinopril (Zestril) 2.5 mg DAILY ORAL 10/30/17 09:00 11/27/17 12:29 11/06/17 11:06 Magnesium Hydroxide (Mom) 30 ml DAILYPRN PRN ORAL Constipation 10/30/17 16:30 11/29/17 15:59 10/30/17 17:31 Metoprolol Tartrate (Lopressor) 100 mg Q12HR ORAL 10/29/17 21:00 11/26/17 20:59 11/06/17 11:06 Olanzapine (ZyPREXA) 2.5 mg BEDTIME ORAL 10/30/17 21:00 11/29/17 20:59 11/05/17 20:36 Pantoprazole (Protonix) 40 mg DAILY ORAL 10/30/17 09:00 11/26/17 08:59 11/05/17 08:15 Potassium Chloride (K-Dur) 40 meq DAILY ORAL 10/30/17 09:00 11/27/17 09:29 11/06/17 10:57 Quetiapine Fumarate (SEROquel) 25 mg Q6HR ORAL 11/02/17 00:00 12/02/17 00:00 11/06/17 11:05 Essence Trent M.D. Nov 06, 2017 16:16
[2017-11-06 20:00] VITALS: BP 137/69
[2017-11-06] MEDS: OLANZapine 2.5mg tab ORAL SCH (20:27)
[2017-11-07] VITALS (7 sets, daily range): BP systolic 119–176; BP diastolic 58–92
[2017-11-07 06:38] LABS: APPEARANCE,URINE CLEAR; BILIRUBIN, URINE NEGATIVE (NEGATIVE); COLOR,URINE PALE YELLOW; GLUCOSE, URINE (UA) NEGATIVE (NEGATIVE); KETONES,URINE NEGATIVE (NEGATIVE); LEUKOCYTE ESTERASE ,URINE 2+ (NEGATIVE); NITRITE,URINE NEGATIVE (NEGATIVE); PH,URINE 5 (4.5-8.0); PROTEIN,URINE 1+ (NEGATIVE); UROBILINOGEN,URINE NORMAL MG/DL (0.0-1.0)
[2017-11-07] MEDS: Docusate 100mg cap ORAL SCH ×2 (09:00→17:01)
[2017-11-07] MEDS: Heparin 5000 units/ml inj SUBQ SCH ×2 (09:00→21:00)
[2017-11-07] MEDS: Lisinopril 2.5mg tab ORAL SCH (09:05)
[2017-11-07] MEDS: Aspirin Baby 81mg ORAL SCH (09:08)
[2017-11-07] MEDS: Haloperidol 5mg/ml Inj IM PRN (09:40)
--- NOTE | 2017-11-07 11:52 | Diagnostic Imaging Report ---
Indication: Cough Technique: One view of the chest Comparison: 10/26/2017 Findings: Multiple pulmonary masses are again demonstrated bilaterally, appearing slightly increased in size. The left hemidiaphragm is now obscured. The heart size is normal Impression: Obscured left hemidiaphragm, could indicate atelectasis, infiltrate, pleural fluid, or combination of such Multiple bilateral pulmonary masses, consistent with metastatic disease
--- NOTE | 2017-11-07 14:29 | General Progress Note ---
Assessment/Plan Problem List: (1) Altered mental status ICD Codes: R41.82 - Altered mental status, unspecified SNOMED: 820969963 (2) Agitated ICD Codes: R45.1 - Restlessness and agitation SNOMED: 950218272 Status: doing well, stable, progressing Assessment/Plan encephalopathy resolved -zyprexa 2.5mg qhs -haldol im -provided ro/st Subjective Date patient seen: Nov 06, 2017 Neurologic/Psychiatric: Reports: anxiety, depressed, emotional problems Allergies: Coded Allergies: No Known Allergies (Unverified , 06/09/16) Subjective the pt is confused Objective Last 24 Hour Vital Signs Date Time Temp Pulse Resp B/P (MAP) Pulse Ox O2 Delivery O2 Flow Rate FiO2 11/07/17 14:01 81 119/58 11/07/17 12:00 97.7 98 20 164/83 98 Room Air 97.7 11/07/17 09:05 100 176/92 11/07/17 09:05 176/92 11/07/17 08:01 Room Air 11/07/17 08:00 97.7 100 20 176/92 100 97.7 11/07/17 04:00 100.0 103 19 144/64 98 Room Air 100.0 11/07/17 00:00 100.5 96 19 143/61 97 Room Air 100.5 11/06/17 20:27 110 137/69 11/06/17 20:00 99.4 110 20 137/69 98 99.4 11/06/17 16:00 98.4 18 142/78 99 Room Air 98.4 Intake and Output 11/06/17 11/07/17 19:00 07:00 Intake Total 1460 ml 120 ml Balance 1460 ml 120 ml Intake Oral 940 ml Tube Feeding 120 ml Other 520 ml # Voids 9 2 # Bowel Movements 1 Laboratory Tests 11/07/17 05:35: Urine Color Pale yellow, Urine Appearance Clear, Urine pH 5, Urine Specific [place] 1.015, Urine Protein 1+H, Urine Glucose (UA) Negative, Urine Ketones Negative, Urine Occult Blood 1+H, Urine Nitrite Negative, Urine Bilirubin Negative, Urine Urobilinogen Normal, Urine Leukocyte Esterase 2+H, Urine RBC 0-2 , Urine WBC 10-15H, Urine Squamous Epithelial Cells Few, Urine Bacteria Occasional Height (Feet): 5 Height (Inches): 2.00 Weight (Pounds): 124 General Appearance: WD/WN, no apparent distress, alert, confused Arvin Pollock M.D. Nov 07, 2017 14:29
--- NOTE | 2017-11-07 14:31 | Psych Consult Progress Note ---
Psych Consult Progress Note Consult 11/07/17 Vital Signs Last 24 Hour Vital Signs Date Time Temp Pulse Resp B/P (MAP) Pulse Ox O2 Delivery O2 Flow Rate FiO2 11/07/17 14:01 81 119/58 11/07/17 12:00 97.7 98 20 164/83 98 Room Air 97.7 11/07/17 09:05 100 176/92 11/07/17 09:05 176/92 11/07/17 08:01 Room Air 11/07/17 08:00 97.7 100 20 176/92 100 97.7 11/07/17 04:00 100.0 103 19 144/64 98 Room Air 100.0 11/07/17 00:00 100.5 96 19 143/61 97 Room Air 100.5 11/06/17 20:27 110 137/69 11/06/17 20:00 99.4 110 20 137/69 98 99.4 11/06/17 16:00 98.4 18 142/78 99 Room Air 98.4 Labs Laboratory Tests Test 11/07/17 05:35 Urine Color Pale yellow Urine Appearance Clear Urine pH 5 (4.5-8.0) Urine Specific [place] 1.015 (1.005-1.035) Urine Protein 1+ (NEGATIVE) H Urine Glucose (UA) Negative (NEGATIVE) Urine Ketones Negative (NEGATIVE) Urine Occult Blood 1+ (NEGATIVE) H Urine Nitrite Negative (NEGATIVE) Urine Bilirubin Negative (NEGATIVE) Urine Urobilinogen Normal MG/DL (0.0-1.0) Urine Leukocyte Esterase 2+ (NEGATIVE) H Urine RBC 0-2 /HPF (0 - 2) Urine WBC 10-15 /HPF (0 - 2) H Urine Squamous Epithelial Cells Few /LPF (NONE/OCC) Urine Bacteria Occasional /HPF (NONE) Medications Current Medications Medications (Trade) Dose Ordered Sig/Richardson Route PRN Reason Start Time Stop Time Status Last Admin Dose Admin Acetaminophen (Tylenol) 650 mg Q4H PRN ORAL Mild Pain/Temp > 100.5 10/31/17 16:30 11/30/17 16:29 11/05/17 00:21 Aspirin (ASA) 81 mg DAILY ORAL 10/30/17 09:00 11/26/17 08:59 11/07/17 09:08 Docusate Sodium (Colace) 100 mg TWICE A DAY ORAL 10/30/17 18:00 11/29/17 17:59 11/05/17 17:11 Ferrous Sulfate (Feosol) 325 mg THREE TIMES A DAY ORAL 10/29/17 18:00 11/26/17 08:59 11/07/17 12:27 Haloperidol Lactate (Haldol) 5 mg Q6H PRN IM Agitation 10/29/17 16:45 11/27/17 16:44 11/07/17 09:40 Heparin Sodium (Porcine) (Heparin 5000 units/ml) 5,000 units EVERY 12 HOURS SUBQ 10/29/17 21:00 11/26/17 08:59 11/05/17 20:38 Lisinopril (Zestril) 2.5 mg DAILY ORAL 10/30/17 09:00 11/27/17 12:29 11/07/17 09:05 Magnesium Hydroxide (Mom) 30 ml DAILYPRN PRN ORAL Constipation 10/30/17 16:30 11/29/17 15:59 10/30/17 17:31 Metoprolol Tartrate (Lopressor) 100 mg Q12HR ORAL 10/29/17 21:00 11/26/17 20:59 11/07/17 09:05 Olanzapine (ZyPREXA) 2.5 mg BEDTIME ORAL 10/30/17 21:00 11/29/17 20:59 11/06/17 20:27 Pantoprazole (Protonix) 40 mg DAILY ORAL 10/30/17 09:00 11/26/17 08:59 11/05/17 08:15 Potassium Chloride (K-Dur) 40 meq DAILY ORAL 10/30/17 09:00 11/27/17 09:29 11/06/17 10:57 Quetiapine Fumarate (SEROquel) 25 mg Q6HR ORAL 11/02/17 00:00 12/02/17 00:00 11/07/17 12:27 Problems: (1) Altered mental status (2) Agitated Status: Acute Assessment & Plan: encephalopathy resolved -zyprexa 2.5mg qhs -haldol im -provided monty/Arvin Patrick M.D. Nov 07, 2017 14:31
--- NOTE | 2017-11-07 16:11 | Infectious Diseases Prog Note ---
Assessment/Plan Assessment/Plan ASSESSMENT: The patient is a 77-year-old female with Leukocytosis (most likely due to metastatic cancer); increasing- r/o SHANIA Fever, intermitent ( ? metastatic cancer, also ro infection ) ongoing- likely to metastatic CA -CXR 11/06: Obscured left hemidiaphragm, could indicate atelectasis, infiltrate ,pleural fluid, or combination of such. Multiple bilateral pulmonary masses, consistent with metastatic disease Doubt post-obstructive pneumonia. no cough Hepatitis panel : negative. Urine culture, mixed organisms.; repeast ucx neg CRP 48 ( 11/01 ) Bcx Neg History of colon cancer. 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 Hypertension. Anemia. 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 PLAN: -continue to monitor off abx --11/06 SP empiric Zosyn #5 --11/04 SP IV Vanco #4 --11/01 SP Rocephin d# 3 Monitor CBC. Monitor BMP. monitor blood culture Doubt at this time, the patient would benefit from further extensive workups such as CT scan. Plan for discharge to hospice. Subjective Allergies: Coded Allergies: No Known Allergies (Unverified , 06/09/16) Subjective no labs Tm 100.5 Objective Vital Signs Last 24 Hour Vital Signs Date Time Temp Pulse Resp B/P (MAP) Pulse Ox O2 Delivery O2 Flow Rate FiO2 11/07/17 14:01 81 119/58 11/07/17 12:00 97.7 98 20 164/83 98 Room Air 97.7 11/07/17 09:05 100 176/92 11/07/17 09:05 176/92 11/07/17 08:01 Room Air 11/07/17 08:00 97.7 100 20 176/92 100 97.7 11/07/17 04:00 100.0 103 19 144/64 98 Room Air 100.0 11/07/17 00:00 100.5 96 19 143/61 97 Room Air 100.5 11/06/17 20:27 110 137/69 11/06/17 20:00 99.4 110 20 137/69 98 99.4 11/06/17 16:00 98.4 18 142/78 99 Room Air 98.4 Height (Feet): 5 Height (Inches): 2.00 Weight (Pounds): 124 Objective HEENT: anicteric Respiratory/Chest: normal breath sounds Cardiovascular: regular rhythm Abdomen: soft, non tender Laboratory Tests Test 11/07/17 05:35 Urine Color Pale yellow Urine Appearance Clear Urine pH 5 (4.5-8.0) Urine Specific Lima 1.015 (1.005-1.035) Urine Protein 1+ (NEGATIVE) H Urine Glucose (UA) Negative (NEGATIVE) Urine Ketones Negative (NEGATIVE) Urine Occult Blood 1+ (NEGATIVE) H Urine Nitrite Negative (NEGATIVE) Urine Bilirubin Negative (NEGATIVE) Urine Urobilinogen Normal MG/DL (0.0-1.0) Urine Leukocyte Esterase 2+ (NEGATIVE) H Urine RBC 0-2 /HPF (0 - 2) Urine WBC 10-15 /HPF (0 - 2) H Urine Squamous Epithelial Cells Few /LPF (NONE/OCC) Urine Bacteria Occasional /HPF (NONE) Current Medications Medications (Trade) Dose Ordered Sig/Richardson Route PRN Reason Start Time Stop Time Status Last Admin Dose Admin Acetaminophen (Tylenol) 650 mg Q4H PRN ORAL Mild Pain/Temp > 100.5 10/31/17 16:30 11/30/17 16:29 11/05/17 00:21 Aspirin (ASA) 81 mg DAILY ORAL 10/30/17 09:00 11/26/17 08:59 11/07/17 09:08 Docusate Sodium (Colace) 100 mg TWICE A DAY ORAL 10/30/17 18:00 11/29/17 17:59 11/05/17 17:11 Ferrous Sulfate (Feosol) 325 mg THREE TIMES A DAY ORAL 10/29/17 18:00 11/26/17 08:59 11/07/17 12:27 Haloperidol Lactate (Haldol) 5 mg Q6H PRN IM Agitation 10/29/17 16:45 11/27/17 16:44 11/07/17 09:40 Heparin Sodium (Porcine) (Heparin 5000 units/ml) 5,000 units EVERY 12 HOURS SUBQ 10/29/17 21:00 11/26/17 08:59 11/05/17 20:38 Lisinopril (Zestril) 2.5 mg DAILY ORAL 10/30/17 09:00 11/27/17 12:29 11/07/17 09:05 Magnesium Hydroxide (Mom) 30 ml DAILYPRN PRN ORAL Constipation 10/30/17 16:30 11/29/17 15:59 10/30/17 17:31 Metoprolol Tartrate (Lopressor) 100 mg Q12HR ORAL 10/29/17 21:00 11/26/17 20:59 11/07/17 09:05 Olanzapine (ZyPREXA) 2.5 mg BEDTIME ORAL 10/30/17 21:00 11/29/17 20:59 11/06/17 20:27 Pantoprazole (Protonix) 40 mg DAILY ORAL 10/30/17 09:00 11/26/17 08:59 11/05/17 08:15 Potassium Chloride (K-Dur) 40 meq DAILY ORAL 10/30/17 09:00 11/27/17 09:29 11/06/17 10:57 Quetiapine Fumarate (SEROquel) 25 mg Q6HR ORAL 11/02/17 00:00 12/02/17 00:00 11/07/17 12:27 Essence Trent M.D. Nov 07, 2017 16:11
[2017-11-07] MEDS: OLANZapine 2.5mg tab ORAL SCH (21:01)
[2017-11-08 00:42] VITALS: BP 130/62
[2017-11-08 04:06] VITALS: BP 152/75
[2017-11-08 08:00] VITALS: BP 149/73
[2017-11-08] MEDS: Docusate 100mg cap ORAL SCH ×2 (08:53→17:19)
[2017-11-08] MEDS: Aspirin Baby 81mg ORAL SCH (08:54)
[2017-11-08] MEDS: Lisinopril 2.5mg tab ORAL SCH (08:55)
[2017-11-08] MEDS: Heparin 5000 units/ml inj SUBQ SCH ×2 (08:56→20:56)
[2017-11-08 12:00] VITALS: BP 130/65
--- NOTE | 2017-11-08 15:09 | General Progress Note ---
Assessment/Plan Problem List: (1) Altered mental status ICD Codes: R41.82 - Altered mental status, unspecified SNOMED: 199620782 (2) Agitated Assessment & Plan: encephalopathy resolved -zyprexa 2.5mg qhs -haldol im -provided ro/st ICD Codes: R45.1 - Restlessness and agitation SNOMED: 389171576 Status: stable, unchanged Assessment/Plan encephalopathy resolved -zyprexa 2.5mg qhs -haldol im -provided ro/st Subjective Date patient seen: Nov 08, 2017 Neurologic/Psychiatric: Reports: anxiety, depressed, emotional problems Allergies: Coded Allergies: No Known Allergies (Unverified , 06/09/16) Subjective the pt is confused Objective Last 24 Hour Vital Signs Date Time Temp Pulse Resp B/P (MAP) Pulse Ox O2 Delivery O2 Flow Rate FiO2 11/08/17 12:00 97.2 96 20 130/65 98 97.2 11/08/17 08:55 149/73 11/08/17 08:54 117 149/73 11/08/17 08:00 98.0 117 20 149/73 99 Room Air 98.0 11/08/17 04:06 98.7 103 17 152/75 97 98.7 11/08/17 00:42 100.7 101 17 130/62 97 100.7 11/07/17 21:59 100.5 11/07/17 21:01 104 135/59 11/07/17 21:00 101.0 11/07/17 20:23 101.0 104 19 135/59 97 101.0 11/07/17 16:00 97.3 95 20 124/60 100 97.3 Intake and Output 11/07/17 11/08/17 19:00 07:00 Intake Total 200 ml 240 ml Balance 200 ml 240 ml Intake Oral 200 ml 240 ml # Voids 3 Height (Feet): 5 Height (Inches): 2.00 Weight (Pounds): 124 Arvin Pollock M.D. Nov 08, 2017 15:09
--- NOTE | 2017-11-08 15:12 | General Progress Note ---
Assessment/Plan Status: unchanged Assessment/Plan PHYSICAL EXAMINATION: HEAD AND NECK: Atraumatic and normocephalic. CHEST: Clear to auscultation. No wheezing. No crackles. HEART: S1 and S2. Regular rate and rhythm. No S3. No S4. ABDOMEN: Prominent, no tenderness, bowel sounds are normal. NEUROLOGIC: The patient is awake, Not alert . agitated at times. Easily arousal. Cranial nerve deficits cannot be excluded at this time. Limited examination. ASSESSMENT: 1. Encephalopathy. multifactorial 2. Urinary tract infection. 3. Metastatic colon CA. 4. Hyponatremia. 5. Hypertension, uncontrolled. 6. Anemia. 7. Dementia 7. GI and DVT prophylaxis. 9. Comfortcare 10 . Sepsis : source unknown 11. Acute RLE DVT PLAN OF CARE: Plan: Hospice placement. Spoke to Raymon. Mentioned that is not capable to take mother at her home Placement in progress Comfortcare. No additional lab test Ok to DC IV line, as patient refusal and complaints of pain at the site. OK to switch meds from IV to PO New Acute RLE DVT, given the absence of pain and symptoms, does not deemed to be treated in this patient with the goal of the comfort care Subjective ROS Limited/Unobtainable: No Constitutional: Reports: malaise HEENT: Reports: no symptoms Respiratory: Reports: no symptoms Allergies: Coded Allergies: No Known Allergies (Unverified , 06/09/16) Objective Last 24 Hour Vital Signs Date Time Temp Pulse Resp B/P (MAP) Pulse Ox O2 Delivery O2 Flow Rate FiO2 11/08/17 12:00 97.2 96 20 130/65 98 97.2 11/08/17 08:55 149/73 11/08/17 08:54 117 149/73 11/08/17 08:00 98.0 117 20 149/73 99 Room Air 98.0 11/08/17 04:06 98.7 103 17 152/75 97 98.7 11/08/17 00:42 100.7 101 17 130/62 97 100.7 11/07/17 21:59 100.5 11/07/17 21:01 104 135/59 11/07/17 21:00 101.0 11/07/17 20:23 101.0 104 19 135/59 97 101.0 11/07/17 16:00 97.3 95 20 124/60 100 97.3 Intake and Output 11/07/17 11/08/17 19:00 07:00 Intake Total 200 ml 240 ml Balance 200 ml 240 ml Intake Oral 200 ml 240 ml # Voids 3 Height (Feet): 5 Height (Inches): 2.00 Weight (Pounds): 124 General Appearance: no apparent distress EENT: PERRL/EOMI Neck: supple Cardiovascular: normal rate Respiratory/Chest: lungs clear Abdomen: soft Extremities: non-tender, other - no tenderness/edema 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
[2017-11-08 16:00] VITALS: BP 145/68
--- NOTE | 2017-11-08 18:46 | Infectious Diseases Prog Note ---
Assessment/Plan Assessment/Plan ASSESSMENT: The patient is a 77-year-old female with Leukocytosis (most likely due to metastatic cancer); increasing- r/o SHANIA Fever, intermitent ( ? metastatic cancer, also ro infection ) ongoing- likely to metastatic CA -CXR 11/06: Obscured left hemidiaphragm, could indicate atelectasis, infiltrate ,pleural fluid, or combination of such. Multiple bilateral pulmonary masses, consistent with metastatic disease Doubt post-obstructive pneumonia. no cough Hepatitis panel : negative. Urine culture, mixed organisms.; repeast ucx neg CRP 48 ( 11/01 ) Bcx Neg History of colon cancer. 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 Hypertension. Anemia. 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 PLAN: -continue to monitor off abx --11/06 SP empiric Zosyn #5 --11/04 SP IV Vanco #4 --11/01 SP Rocephin d# 3 Monitor CBC. Monitor BMP. monitor blood culture Doubt at this time, the patient would benefit from further extensive workups such as CT scan. Plan for discharge to hospice -agree w. no further diagnostic testing such as labs, imaging studies Subjective Allergies: Coded Allergies: No Known Allergies (Unverified , 06/09/16) Subjective intermittently febrile, tm 101 for hospice, awaiting placmente Objective Vital Signs Last 24 Hour Vital Signs Date Time Temp Pulse Resp B/P (MAP) Pulse Ox O2 Delivery O2 Flow Rate FiO2 11/08/17 16:00 Room Air 11/08/17 16:00 97.3 99 20 145/68 98 97.3 11/08/17 12:00 97.2 96 20 130/65 98 97.2 11/08/17 08:55 149/73 11/08/17 08:54 117 149/73 11/08/17 08:00 98.0 117 20 149/73 99 Room Air 98.0 11/08/17 04:06 98.7 103 17 152/75 97 98.7 11/08/17 00:42 100.7 101 17 130/62 97 100.7 11/07/17 21:59 100.5 11/07/17 21:01 104 135/59 11/07/17 21:00 101.0 11/07/17 20:23 101.0 104 19 135/59 97 101.0 Height (Feet): 5 Height (Inches): 2.00 Weight (Pounds): 124 Objective HEENT: anicteric Respiratory/Chest: normal breath sounds Cardiovascular: regular rhythm Abdomen: soft, non tender Microbiology Date/Time Source Procedure Growth Status 11/07/17 05:35 Urine,Clean Catch Urine Culture - Preliminary NO GROWTH AFTER 24 HOURS Resulted Current Medications Medications (Trade) Dose Ordered Sig/Richardson Route PRN Reason Start Time Stop Time Status Last Admin Dose Admin Acetaminophen (Tylenol) 650 mg Q4H PRN ORAL Mild Pain/Temp > 100.5 10/31/17 16:30 11/30/17 16:29 11/07/17 21:00 Aspirin (ASA) 81 mg DAILY ORAL 10/30/17 09:00 11/26/17 08:59 11/08/17 08:54 Docusate Sodium (Colace) 100 mg TWICE A DAY ORAL 10/30/17 18:00 11/29/17 17:59 11/08/17 08:53 Ferrous Sulfate (Feosol) 325 mg THREE TIMES A DAY ORAL 10/29/17 18:00 11/26/17 08:59 11/08/17 12:27 Haloperidol Lactate (Haldol) 5 mg Q6H PRN IM Agitation 10/29/17 16:45 11/27/17 16:44 11/07/17 09:40 Heparin Sodium (Porcine) (Heparin 5000 units/ml) 5,000 units EVERY 12 HOURS SUBQ 10/29/17 21:00 11/26/17 08:59 11/08/17 08:56 Lisinopril (Zestril) 2.5 mg DAILY ORAL 10/30/17 09:00 11/27/17 12:29 11/08/17 08:55 Magnesium Hydroxide (Mom) 30 ml DAILYPRN PRN ORAL Constipation 10/30/17 16:30 11/29/17 15:59 10/30/17 17:31 Metoprolol Tartrate (Lopressor) 100 mg Q12HR ORAL 10/29/17 21:00 11/26/17 20:59 11/08/17 08:54 Olanzapine (ZyPREXA) 2.5 mg BEDTIME ORAL 10/30/17 21:00 11/29/17 20:59 11/07/17 21:01 Pantoprazole (Protonix) 40 mg DAILY ORAL 10/30/17 09:00 11/26/17 08:59 11/08/17 08:54 Potassium Chloride (K-Dur) 40 meq DAILY ORAL 10/30/17 09:00 11/27/17 09:29 11/08/17 08:54 Quetiapine Fumarate (SEROquel) 25 mg Q6HR ORAL 11/02/17 00:00 12/02/17 00:00 11/08/17 12:27 Essence Trent M.D. Nov 08, 2017 18:46
[2017-11-08 20:00] VITALS: BP 143/71
[2017-11-08] MEDS: OLANZapine 2.5mg tab ORAL SCH (20:53)
[2017-11-09] VITALS: BP 110/51
[2017-11-09 04:00] VITALS: BP 141/65
[2017-11-09 08:00] VITALS: BP 127/66
[2017-11-09] MEDS: Docusate 100mg cap ORAL SCH ×2 (10:30→18:00)
[2017-11-09] MEDS: Aspirin Baby 81mg ORAL SCH (10:31)
[2017-11-09] MEDS: Lisinopril 2.5mg tab ORAL SCH (10:32)
[2017-11-09] MEDS: Heparin 5000 units/ml inj SUBQ SCH ×2 (10:54→20:56)
--- NOTE | 2017-11-09 11:11 | Infectious Diseases Prog Note ---
Assessment/Plan Assessment/Plan Assessment/Plan ASSESSMENT: The patient is a 77-year-old female with Leukocytosis (most likely due to metastatic cancer); increasing- r/o SHANIA Fever, intermitent ( ? metastatic cancer, also ro infection ) ongoing- likely to metastatic CA -CXR 11/06: Obscured left hemidiaphragm, could indicate atelectasis, infiltrate ,pleural fluid, or combination of such. Multiple bilateral pulmonary masses, consistent with metastatic disease Doubt post-obstructive pneumonia. no cough Hepatitis panel : negative. Urine culture, mixed organisms.; repeast ucx neg CRP 48 ( 11/01 ) Bcx Neg History of colon cancer. 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 Hypertension. Anemia. 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 PLAN: -continue to monitor off abx --11/06 SP empiric Zosyn #5 --11/04 SP IV Vanco #4 --11/01 SP Rocephin d# 3 Monitor CBC. Monitor BMP. monitor blood culture Doubt at this time, the patient would benefit from further extensive workups such as CT scan. Plan for discharge to hospice -agree w. no further diagnostic testing such as labs, imaging studies Subjective Constitutional: Reports: fever, fatigue; Denies: no symptoms, chills, anorexia , drenching sweats, other Allergies: Coded Allergies: No Known Allergies (Unverified , 06/09/16) Objective Vital Signs Last 24 Hour Vital Signs Date Time Temp Pulse Resp B/P (MAP) Pulse Ox O2 Delivery O2 Flow Rate FiO2 11/09/17 10:33 110 127/66 11/09/17 10:32 127/66 11/09/17 08:00 98.6 110 18 127/66 98 Room Air 98.6 11/09/17 04:00 100.1 103 20 141/65 95 Room Air 100.1 11/09/17 00:00 101.0 93 18 110/51 98 Room Air 101.0 11/08/17 20:55 101 143/71 11/08/17 20:00 99.4 101 17 143/71 98 Room Air 99.4 11/08/17 16:00 Room Air 11/08/17 16:00 97.3 99 20 145/68 98 97.3 11/08/17 12:00 97.2 96 20 130/65 98 97.2 Height (Feet): 5 Height (Inches): 2.00 Weight (Pounds): 124 HEENT: anicteric Respiratory/Chest: normal breath sounds Cardiovascular: regularly irregular Abdomen: no organomegaly Microbiology Date/Time Source Procedure Growth Status 11/07/17 05:35 Urine,Clean Catch Urine Culture - Preliminary NO GROWTH AFTER 24 HOURS Resulted Current Medications Medications (Trade) Dose Ordered Sig/Richardson Route PRN Reason Start Time Stop Time Status Last Admin Dose Admin Acetaminophen (Tylenol) 650 mg Q4H PRN ORAL Mild Pain/Temp > 100.5 10/31/17 16:30 11/30/17 16:29 11/07/17 21:00 Aspirin (ASA) 81 mg DAILY ORAL 10/30/17 09:00 11/26/17 08:59 11/09/17 10:31 Docusate Sodium (Colace) 100 mg TWICE A DAY ORAL 10/30/17 18:00 11/29/17 17:59 11/09/17 10:30 Ferrous Sulfate (Feosol) 325 mg THREE TIMES A DAY ORAL 10/29/17 18:00 11/26/17 08:59 11/08/17 12:27 Haloperidol Lactate (Haldol) 5 mg Q6H PRN IM Agitation 10/29/17 16:45 11/27/17 16:44 11/07/17 09:40 Heparin Sodium (Porcine) (Heparin 5000 units/ml) 5,000 units EVERY 12 HOURS SUBQ 10/29/17 21:00 11/26/17 08:59 11/09/17 10:54 Lisinopril (Zestril) 2.5 mg DAILY ORAL 10/30/17 09:00 11/27/17 12:29 11/09/17 10:32 Magnesium Hydroxide (Mom) 30 ml DAILYPRN PRN ORAL Constipation 10/30/17 16:30 11/29/17 15:59 10/30/17 17:31 Metoprolol Tartrate (Lopressor) 100 mg Q12HR ORAL 10/29/17 21:00 11/26/17 20:59 11/09/17 10:33 Olanzapine (ZyPREXA) 2.5 mg BEDTIME ORAL 10/30/17 21:00 11/29/17 20:59 11/08/17 20:53 Pantoprazole (Protonix) 40 mg DAILY ORAL 10/30/17 09:00 11/26/17 08:59 11/09/17 10:35 Potassium Chloride (K-Dur) 40 meq DAILY ORAL 10/30/17 09:00 11/27/17 09:29 11/08/17 08:54 Quetiapine Fumarate (SEROquel) 25 mg Q6HR ORAL 11/02/17 00:00 12/02/17 00:00 11/09/17 05:56 Perry Guzman MD Nov 09, 2017 11:11
[2017-11-09 12:00] VITALS: BP 127/67
[2017-11-09 16:00] VITALS: BP 133/61
[2017-11-09 20:00] VITALS: BP 141/64
[2017-11-09] MEDS: OLANZapine 2.5mg tab ORAL SCH (20:55)
[2017-11-10] VITALS: BP 137/76
[2017-11-10 04:00] VITALS: BP 121/61
[2017-11-10 08:00] VITALS: BP 138/58
[2017-11-10] MEDS: Docusate 100mg cap ORAL SCH ×2 (09:00→18:00)
[2017-11-10] MEDS: Heparin 5000 units/ml inj SUBQ SCH ×2 (09:00→20:47)
[2017-11-10] MEDS: Lisinopril 2.5mg tab ORAL SCH (09:52)
[2017-11-10] MEDS: Aspirin Baby 81mg ORAL SCH (09:52)
[2017-11-10 12:00] VITALS: BP 139/63
[2017-11-10 16:00] VITALS: BP 135/64
[2017-11-10 20:00] VITALS: BP 126/56
[2017-11-10] MEDS: OLANZapine 2.5mg tab ORAL SCH (20:47)
[2017-11-11] VITALS: BP 131/59
[2017-11-11 04:00] VITALS: BP 137/60
[2017-11-11 08:00] VITALS: BP 143/80
[2017-11-11] MEDS: Heparin 5000 units/ml inj SUBQ SCH ×2 (09:00→20:44)
[2017-11-11] MEDS: Docusate 100mg cap ORAL SCH ×2 (09:00→17:51)
--- NOTE | 2017-11-11 09:39 | General Progress Note ---
Assessment/Plan Status: unchanged Assessment/Plan PHYSICAL EXAMINATION: HEAD AND NECK: Atraumatic and normocephalic. CHEST: Clear to auscultation. No wheezing. No crackles. HEART: S1 and S2. Regular rate and rhythm. No S3. No S4. ABDOMEN: Prominent, no tenderness, bowel sounds are normal. NEUROLOGIC: The patient is awake, Not alert . agitated at times. Easily arousal. Cranial nerve deficits cannot be excluded at this time. Limited examination. ASSESSMENT: 1. Encephalopathy. multifactorial 2. Urinary tract infection. 3. Metastatic colon CA. 4. Hyponatremia. 5. Hypertension, uncontrolled. 6. Anemia. 7. Dementia 7. GI and DVT prophylaxis. 9. Comfortcare 10 . Sepsis : source unknown 11. Acute RLE DVT PLAN OF CARE: Plan: Hospice placement. Spoke to Raymon. Mentioned that is not capable to take mother at her home Placement in progress Comfortcare. No additional lab test Ok to DC IV line, as patient refusal and complaints of pain at the site. OK to switch meds from IV to PO New Acute RLE DVT, given the absence of pain and symptoms, not deemed to be treated in this patient with the goal of the comfort care Subjective Allergies: Coded Allergies: No Known Allergies (Unverified , 06/09/16) Objective Last 24 Hour Vital Signs Date Time Temp Pulse Resp B/P (MAP) Pulse Ox O2 Delivery O2 Flow Rate FiO2 11/11/17 08:00 98.7 102 20 143/80 98 98.7 11/11/17 04:00 99.2 84 20 137/60 97 Room Air 99.2 11/11/17 00:00 99.2 83 20 131/59 98 99.2 11/10/17 20:47 93 126/56 11/10/17 20:00 99.3 93 20 126/56 98 99.3 11/10/17 16:00 99.2 94 21 135/64 97 Room Air 99.2 11/10/17 12:00 98.9 77 21 139/63 99 Room Air 98.9 11/10/17 09:52 61 138/58 11/10/17 09:52 138/58 Intake and Output 11/10/17 11/11/17 19:00 07:00 Intake Total 480 ml 490 ml Balance 480 ml 490 ml Intake Oral 480 ml 490 ml # Voids 5 Height (Feet): 5 Height (Inches): 2.00 Weight (Pounds): 124 Dalila Reyes MD Nov 11, 2017 09:39
[2017-11-11] MEDS: Aspirin Baby 81mg ORAL SCH (09:48)
[2017-11-11] MEDS: Lisinopril 2.5mg tab ORAL SCH (09:48)
[2017-11-11 12:00] VITALS: BP 151/71
--- NOTE | 2017-11-11 15:42 | General Progress Note ---
Assessment/Plan Problem List: (1) Altered mental status ICD Codes: R41.82 - Altered mental status, unspecified SNOMED: 458609995 (2) Agitated Assessment & Plan: encephalopathy resolved -zyprexa 2.5mg qhs -haldol im -provided ro/st ICD Codes: R45.1 - Restlessness and agitation SNOMED: [id number] Status: stable, progressing Assessment/Plan encephalopathy resolved -zyprexa 2.5mg qhs -haldol im -provided ro/st Subjective Neurologic/Psychiatric: Reports: anxiety, depressed, emotional problems Allergies: Coded Allergies: No Known Allergies (Unverified , 06/09/16) Subjective the pt is less confused Objective Last 24 Hour Vital Signs Date Time Temp Pulse Resp B/P (MAP) Pulse Ox O2 Delivery O2 Flow Rate FiO2 11/11/17 12:00 97.4 78 20 151/71 98 97.4 11/11/17 09:49 102 143/80 11/11/17 09:48 143/80 11/11/17 08:00 98.7 102 20 143/80 98 98.7 11/11/17 04:00 99.2 84 20 137/60 97 Room Air 99.2 11/11/17 00:00 99.2 83 20 131/59 98 99.2 11/10/17 20:47 93 126/56 11/10/17 20:00 99.3 93 20 126/56 98 99.3 11/10/17 16:00 99.2 94 21 135/64 97 Room Air 99.2 Intake and Output 11/10/17 11/11/17 19:00 07:00 Intake Total 480 ml 490 ml Balance 480 ml 490 ml Intake Oral 480 ml 490 ml # Voids 5 Height (Feet): 5 Height (Inches): 2.00 Weight (Pounds): 124 General Appearance: no apparent distress, alert, confused Arvin Pollock M.D. Nov 11, 2017 15:42
[2017-11-11 16:00] VITALS: BP 145/64
--- NOTE | 2017-11-11 16:59 | Infectious Diseases Prog Note ---
Assessment/Plan Assessment/Plan Assessment/Plan ASSESSMENT: The patient is a 77-year-old female with Leukocytosis (most likely due to metastatic cancer); increasing- r/o SHANIA Fever, intermitent ( ? metastatic cancer, also ro infection ) ongoing- likely to metastatic CA -CXR 11/06: Obscured left hemidiaphragm, could indicate atelectasis, infiltrate ,pleural fluid, or combination of such. Multiple bilateral pulmonary masses, consistent with metastatic disease Doubt post-obstructive pneumonia. no cough Hepatitis panel : negative. Urine culture, mixed organisms.; repeast ucx neg CRP 48 ( 11/01 ) Bcx Neg History of colon cancer. 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 Hypertension. Anemia. 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 PLAN: -continue to monitor off abx --11/06 SP empiric Zosyn #5 --11/04 SP IV Vanco #4 --11/01 SP Rocephin d# 3 Monitor CBC. Monitor BMP. monitor blood culture Doubt at this time, the patient would benefit from further extensive workups such as CT scan. Plan for discharge to hospice -agree w. no further diagnostic testing such as labs, imaging studies ID WILL SIGN OFF NOW, PLEASE CALL BACK IF NEEDED. Subjective Allergies: Coded Allergies: No Known Allergies (Unverified , 06/09/16) Subjective Afebrile in 48hrs made hospice-awaiting placement Objective Vital Signs Last 24 Hour Vital Signs Date Time Temp Pulse Resp B/P (MAP) Pulse Ox O2 Delivery O2 Flow Rate FiO2 11/11/17 12:00 97.4 78 20 151/71 98 97.4 11/11/17 09:49 102 143/80 11/11/17 09:48 143/80 11/11/17 08:00 98.7 102 20 143/80 98 98.7 11/11/17 04:00 99.2 84 20 137/60 97 Room Air 99.2 11/11/17 00:00 99.2 83 20 131/59 98 99.2 11/10/17 20:47 93 126/56 11/10/17 20:00 99.3 93 20 126/56 98 99.3 Height (Feet): 5 Height (Inches): 2.00 Weight (Pounds): 124 Objective HEENT: anicteric Respiratory/Chest: normal breath sounds Cardiovascular: regular rhythm Abdomen: soft, non tender Current Medications Medications (Trade) Dose Ordered Sig/Richardson Route PRN Reason Start Time Stop Time Status Last Admin Dose Admin Acetaminophen (Tylenol) 650 mg Q4H PRN ORAL Mild Pain/Temp > 100.5 10/31/17 16:30 11/30/17 16:29 11/07/17 21:00 Aspirin (ASA) 81 mg DAILY ORAL 10/30/17 09:00 11/26/17 08:59 11/11/17 09:48 Docusate Sodium (Colace) 100 mg TWICE A DAY ORAL 10/30/17 18:00 11/29/17 17:59 11/09/17 10:30 Ferrous Sulfate (Feosol) 325 mg THREE TIMES A DAY ORAL 10/29/17 18:00 11/26/17 08:59 11/11/17 12:56 Haloperidol Lactate (Haldol) 5 mg Q6H PRN IM Agitation 10/29/17 16:45 11/27/17 16:44 11/07/17 09:40 Heparin Sodium (Porcine) (Heparin 5000 units/ml) 5,000 units EVERY 12 HOURS SUBQ 10/29/17 21:00 11/26/17 08:59 11/10/17 20:47 Lisinopril (Zestril) 2.5 mg DAILY ORAL 10/30/17 09:00 11/27/17 12:29 11/11/17 09:48 Magnesium Hydroxide (Mom) 30 ml DAILYPRN PRN ORAL Constipation 10/30/17 16:30 11/29/17 15:59 10/30/17 17:31 Metoprolol Tartrate (Lopressor) 100 mg Q12HR ORAL 10/29/17 21:00 11/26/17 20:59 11/11/17 09:49 Olanzapine (ZyPREXA) 2.5 mg BEDTIME ORAL 10/30/17 21:00 11/29/17 20:59 11/10/17 20:47 Pantoprazole (Protonix) 40 mg DAILY ORAL 10/30/17 09:00 11/26/17 08:59 11/10/17 09:52 Potassium Chloride (K-Dur) 40 meq DAILY ORAL 10/30/17 09:00 11/27/17 09:29 11/08/17 08:54 Quetiapine Fumarate (SEROquel) 25 mg Q6HR ORAL 11/02/17 00:00 12/02/17 00:00 11/11/17 12:56 Essence Trent M.D. Nov 11, 2017 16:59
--- NOTE | 2017-11-11 19:00 | Progress Note ---
DATE: 11/11/2017 SUBJECTIVE: The patient is still confused, however, is able to answer questions more appropriately. MENTAL STATUS EXAMINATION: The patient is alert and oriented times self and place. Mood is neutral. Affect is constricted, congruent with mood. Thought process is concrete. Thought content, no suicidal or homicidal ideation. ASSESSMENT: Encephalopathy, improving. PLAN: We will continue current medications. Arvin Pollock M.D. DR: WANDY JOB#: [id number] CC:
[2017-11-11 20:00] VITALS: BP 152/75
[2017-11-11] MEDS: OLANZapine 2.5mg tab ORAL SCH (20:44)
[2017-11-12] VITALS: BP 150/66
[2017-11-12 04:00] VITALS: BP 150/69
[2017-11-12 08:00] VITALS: BP 166/81
[2017-11-12] MEDS: Heparin 5000 units/ml inj SUBQ SCH ×2 (09:00→20:38)
[2017-11-12] MEDS: Aspirin Baby 81mg ORAL SCH (09:00)
[2017-11-12] MEDS: Docusate 100mg cap ORAL SCH ×2 (09:03→19:08)
[2017-11-12] MEDS: Lisinopril 2.5mg tab ORAL SCH (09:09)
[2017-11-12 12:00] VITALS: BP 140/85
[2017-11-12 16:00] VITALS: BP 154/72
[2017-11-12 20:00] VITALS: BP 128/56
[2017-11-12] MEDS: OLANZapine 2.5mg tab ORAL SCH (20:37)
--- NOTE | 2017-11-12 22:33 | General Progress Note ---
Assessment/Plan Problem List: (1) Altered mental status ICD Codes: R41.82 - Altered mental status, unspecified SNOMED: 642047446 (2) Agitated Assessment & Plan: encephalopathy resolved -zyprexa 2.5mg qhs -haldol im -provided ro/st ICD Codes: R45.1 - Restlessness and agitation SNOMED: [id number] Status: stable, progressing Assessment/Plan encephalopathy resolved -zyprexa 2.5mg qhs -haldol im -provided ro/st Subjective Date patient seen: November 12, 2017 Neurologic/Psychiatric: Reports: anxiety, depressed, emotional problems Allergies: Coded Allergies: No Known Allergies (Unverified , 06/09/16) Subjective the pt is less confused Objective Last 24 Hour Vital Signs Date Time Temp Pulse Resp B/P (MAP) Pulse Ox O2 Delivery O2 Flow Rate FiO2 11/12/17 20:37 91 154/72 11/12/17 20:00 98.0 96 18 128/56 94 98.0 11/12/17 19:00 96 Room Air 11/12/17 16:00 Room Air 11/12/17 16:00 97.3 91 20 154/72 94 97.3 11/12/17 12:00 98.1 27 140/85 98 Room Air 98.1 11/12/17 09:09 141/75 11/12/17 09:08 110 141/75 11/12/17 08:00 96.8 93 20 166/81 99 Room Air 96.8 11/12/17 04:00 97.9 93 19 150/69 99 97.9 11/12/17 04:00 97.9 93 19 150/69 99 97.9 11/12/17 00:00 98.6 86 18 150/66 98 98.6 Intake and Output 11/11/17 11/12/17 19:00 07:00 Intake Total 300 ml 120 ml Balance 300 ml 120 ml Intake Oral 300 ml 120 ml # Voids 3 2 # Bowel Movements 1 Height (Feet): 5 Height (Inches): 2.00 Weight (Pounds): 124 General Appearance: no apparent distress, alert Neurologic: responsive, depressed affect Arvin Pollock M.D. November 12, 2017 22:33
[2017-11-13] VITALS: BP 126/55
[2017-11-13 04:00] VITALS: BP 132/58
[2017-11-13 08:00] VITALS: BP 134/61
[2017-11-13] MEDS: Heparin 5000 units/ml inj SUBQ SCH ×2 (09:00→20:28)
[2017-11-13] MEDS: Docusate 100mg cap ORAL SCH ×2 (09:34→17:47)
[2017-11-13] MEDS: Lisinopril 2.5mg tab ORAL SCH (09:34)
[2017-11-13] MEDS: Aspirin Baby 81mg ORAL SCH (09:35)
[2017-11-13 12:00] VITALS: BP 131/62
--- NOTE | 2017-11-13 12:19 | General Progress Note ---
Assessment/Plan Problem List: (1) Altered mental status ICD Codes: R41.82 - Altered mental status, unspecified SNOMED: 595207625 (2) Agitated Assessment & Plan: encephalopathy resolved -zyprexa 2.5mg qhs -haldol im -provided ro/st ICD Codes: R45.1 - Restlessness and agitation SNOMED: 083580491 Status: stable, progressing Assessment/Plan encephalopathy resolved -zyprexa 2.5mg qhs -haldol im -provided ro/st Subjective Date patient seen: November 13, 2017 Neurologic/Psychiatric: Reports: anxiety, depressed, emotional problems Allergies: Coded Allergies: No Known Allergies (Unverified , 06/09/16) Subjective the pt is doing well. No behavioral issues Objective Last 24 Hour Vital Signs Date Time Temp Pulse Resp B/P (MAP) Pulse Ox O2 Delivery O2 Flow Rate FiO2 11/13/17 09:35 98 134/61 11/13/17 09:34 134/61 11/13/17 08:00 98.1 98 24 134/61 97 98.1 11/13/17 04:00 98.1 87 18 132/58 97 98.1 11/13/17 00:00 98.2 51 18 126/55 97 98.2 11/12/17 20:37 91 154/72 11/12/17 20:00 98.0 96 18 128/56 94 98.0 11/12/17 19:00 96 Room Air 11/12/17 16:00 Room Air 11/12/17 16:00 97.3 91 20 154/72 94 97.3 Intake and Output 11/12/17 11/13/17 19:00 07:00 Intake Total 200 ml Balance 200 ml Intake Oral 200 ml # Voids 4 3 # Bowel Movements 1 Height (Feet): 5 Height (Inches): 2.00 Weight (Pounds): 124 General Appearance: WD/WN, no apparent distress, alert Neurologic: oriented x 3, responsive, normal mood/affect Arvin Pollock M.D. November 13, 2017 12:19
[2017-11-13 16:00] VITALS: BP 140/65
[2017-11-13 20:12] VITALS: BP 133/68
[2017-11-13] MEDS: OLANZapine 2.5mg tab ORAL SCH (20:27)
[2017-11-14] VITALS: BP 134/59
[2017-11-14 04:00] VITALS: BP 136/64
[2017-11-14 08:00] VITALS: BP 118/99
[2017-11-14] MEDS: Heparin 5000 units/ml inj SUBQ SCH ×2 (09:00→21:00)
[2017-11-14] MEDS: Lisinopril 2.5mg tab ORAL SCH (09:03)
[2017-11-14] MEDS: Aspirin Baby 81mg ORAL SCH (09:03)
[2017-11-14] MEDS: Docusate 100mg cap ORAL SCH ×2 (09:03→17:23)
--- NOTE | 2017-11-14 10:08 | General Progress Note ---
Assessment/Plan Status: stable Assessment/Plan PHYSICAL EXAMINATION: HEAD AND NECK: Atraumatic and normocephalic. CHEST: Clear to auscultation. No wheezing. No crackles. HEART: S1 and S2. Regular rate and rhythm. No S3. No S4. ABDOMEN: Prominent, no tenderness, bowel sounds are normal. NEUROLOGIC: The patient is awake, Not alert . agitated at times. Easily arousal. Cranial nerve deficits cannot be excluded at this time. Limited examination. ASSESSMENT: 1. Encephalopathy. multifactorial 2. Urinary tract infection. 3. Metastatic colon CA. 4. Hyponatremia. 5. Hypertension, uncontrolled. 6. Anemia. 7. Dementia 7. GI and DVT prophylaxis. 9. Comfortcare 10 . Sepsis : source unknown 11. Acute RLE DVT PLAN OF CARE: Plan: Hospice placement. Spoke to Raymon. Mentioned that is not capable to take mother at her home Placement in progress Comfortcare. No additional lab test Ok to DC IV line, as patient refusal and complaints of pain at the site. OK to switch meds from IV to PO New Acute RLE DVT, given the absence of pain and symptoms, not deemed to be treated in this patient with the goal of the comfort care Subjective ROS Limited/Unobtainable: No Constitutional: Reports: malaise HEENT: Reports: no symptoms Cardiovascular: Reports: no symptoms Allergies: Coded Allergies: No Known Allergies (Unverified , 06/09/16) Objective Last 24 Hour Vital Signs Date Time Temp Pulse Resp B/P (MAP) Pulse Ox O2 Delivery O2 Flow Rate FiO2 11/14/17 09:03 108 118/99 11/14/17 09:03 118/99 11/14/17 08:00 98.3 108 17 118/99 99 98.3 11/14/17 04:00 98.0 86 20 136/64 95 98.0 11/14/17 00:00 99.1 86 16 134/59 96 99.1 11/13/17 20:27 102 133/68 11/13/17 20:12 99.4 102 16 133/68 95 99.4 11/13/17 16:00 97.6 74 18 140/65 97 97.6 11/13/17 12:00 98.0 77 21 131/62 97 98.0 Intake and Output 11/13/17 11/14/17 19:00 07:00 Intake Total 600 ml Balance 600 ml Other 600 ml # Voids 6 Height (Feet): 5 Height (Inches): 2.00 Weight (Pounds): 124 General Appearance: WD/WN EENT: PERRL/EOMI Neck: supple Cardiovascular: normal rate Respiratory/Chest: lungs clear Abdomen: soft Extremities: non-tender 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
--- NOTE | 2017-11-14 11:56 | General Progress Note ---
Assessment/Plan Problem List: (1) Altered mental status ICD Codes: R41.82 - Altered mental status, unspecified SNOMED: 162661775 (2) Agitated Assessment & Plan: encephalopathy resolved -zyprexa 2.5mg qhs -haldol im -provided ro/st ICD Codes: R45.1 - Restlessness and agitation SNOMED: 829048295 Status: stable, progressing Assessment/Plan encephalopathy resolved -zyprexa 2.5mg qhs -haldol im -provided ro/st Subjective Date patient seen: November 14, 2017 Neurologic/Psychiatric: Reports: anxiety, depressed, emotional problems Allergies: Coded Allergies: No Known Allergies (Unverified , 06/09/16) Subjective the pt wants to leave and go home. No behavioral issues Objective Last 24 Hour Vital Signs Date Time Temp Pulse Resp B/P (MAP) Pulse Ox O2 Delivery O2 Flow Rate FiO2 11/14/17 09:03 108 118/99 11/14/17 09:03 118/99 11/14/17 08:00 98.3 108 17 118/99 99 98.3 11/14/17 04:00 98.0 86 20 136/64 95 98.0 11/14/17 00:00 99.1 86 16 134/59 96 99.1 11/13/17 20:27 102 133/68 11/13/17 20:12 99.4 102 16 133/68 95 99.4 11/13/17 16:00 97.6 74 18 140/65 97 97.6 11/13/17 12:00 98.0 77 21 131/62 97 98.0 Intake and Output 11/13/17 11/14/17 19:00 07:00 Intake Total 600 ml Balance 600 ml Other 600 ml # Voids 6 Height (Feet): 5 Height (Inches): 2.00 Weight (Pounds): 124 General Appearance: WD/WN, no apparent distress, alert Neurologic: oriented x 3, responsive, depressed affect Arvin Pollock M.D. November 14, 2017 11:56
[2017-11-14 12:00] VITALS: BP 133/65
[2017-11-14 16:00] VITALS: BP 137/69
[2017-11-14 20:00] VITALS: BP 141/68
[2017-11-14] MEDS: OLANZapine 2.5mg tab ORAL SCH (21:15)
[2017-11-15] VITALS: BP 127/55
[2017-11-15 04:00] VITALS: BP 116/61
[2017-11-15 08:00] VITALS: BP 131/68
[2017-11-15] MEDS: Heparin 5000 units/ml inj SUBQ SCH ×2 (09:00→20:11)
[2017-11-15] MEDS: Docusate 100mg cap ORAL SCH ×2 (09:10→17:25)
[2017-11-15] MEDS: Aspirin Baby 81mg ORAL SCH (09:10)
[2017-11-15] MEDS: Lisinopril 2.5mg tab ORAL SCH (09:10)
--- NOTE | 2017-11-15 11:33 | General Progress Note ---
Assessment/Plan Problem List: (1) Altered mental status ICD Codes: R41.82 - Altered mental status, unspecified SNOMED: 532112312 (2) Agitated Assessment & Plan: encephalopathy resolved -zyprexa 2.5mg qhs -haldol im -provided ro/st ICD Codes: R45.1 - Restlessness and agitation SNOMED: 962671009 Status: stable, progressing Assessment/Plan encephalopathy resolved -zyprexa 2.5mg qhs -haldol im -provided ro/st Subjective Date patient seen: November 15, 2017 Neurologic/Psychiatric: Reports: anxiety, depressed, emotional problems Allergies: Coded Allergies: No Known Allergies (Unverified , 06/09/16) Subjective the pt wants to leave and go home. No behavioral issues Objective Last 24 Hour Vital Signs Date Time Temp Pulse Resp B/P (MAP) Pulse Ox O2 Delivery O2 Flow Rate FiO2 11/15/17 09:10 84 116/61 11/15/17 09:10 116/61 11/15/17 08:00 98.7 105 18 131/68 100 Room Air 98.7 11/15/17 04:00 97.9 84 20 116/61 98 97.9 11/15/17 01:28 99.7 11/15/17 00:29 100.3 11/15/17 00:00 100.3 81 19 127/55 96 100.3 11/14/17 21:15 100 141/68 11/14/17 20:00 99.2 100 18 141/68 97 Room Air 99.2 11/14/17 16:00 99.5 92 18 137/69 98 Room Air 99.5 11/14/17 12:00 97.8 76 19 133/65 97 Room Air 97.8 Intake and Output 11/14/17 11/15/17 19:00 07:00 Intake Total 1340 ml 200 ml Balance 1340 ml 200 ml Intake Oral 240 ml 200 ml Other 1100 ml # Voids 5 Height (Feet): 5 Height (Inches): 2.00 Weight (Pounds): 124 General Appearance: WD/WN, no apparent distress, alert Arvin Pollock M.D. November 15, 2017 11:32
[2017-11-15 12:00] VITALS: BP 138/65
[2017-11-15 16:06] VITALS: BP 146/80
[2017-11-15 20:00] VITALS: BP 136/79
[2017-11-15] MEDS: OLANZapine 2.5mg tab ORAL SCH (20:10)
[2017-11-16] VITALS: BP 143/61
[2017-11-16 04:53] VITALS: BP 129/53
[2017-11-16 08:00] VITALS: BP 124/61
[2017-11-16] MEDS: Heparin 5000 units/ml inj SUBQ SCH (09:00)
[2017-11-16] MEDS: Lisinopril 2.5mg tab ORAL SCH (09:00)
[2017-11-16] MEDS: Aspirin Baby 81mg ORAL SCH (09:12)
[2017-11-16] MEDS: Docusate 100mg cap ORAL SCH ×2 (09:12→17:33)
[2017-11-16 12:00] VITALS: BP 123/65
[2017-11-16 16:00] VITALS: BP 128/62
[2017-11-16 20:00] VITALS: BP 139/63
[2017-11-16] MEDS: OLANZapine 2.5mg tab ORAL SCH (20:08)
[2017-11-17] VITALS: BP 143/67
[2017-11-17 04:00] VITALS: BP 139/60
[2017-11-17 08:00] VITALS: BP 126/62
[2017-11-17] MEDS: Docusate 100mg cap ORAL SCH ×2 (08:56→17:08)
[2017-11-17] MEDS: Lisinopril 2.5mg tab ORAL SCH (08:57)
[2017-11-17] MEDS: Aspirin Baby 81mg ORAL SCH (08:57)
[2017-11-17 12:00] VITALS: BP 127/64
[2017-11-17 16:00] VITALS: BP 124/65
[2017-11-17 19:55] VITALS: BP 151/72
[2017-11-17] MEDS: OLANZapine 2.5mg tab ORAL SCH (20:08)
[2017-11-18] VITALS: BP 136/63
[2017-11-18 04:00] VITALS: BP 130/64
[2017-11-18 07:28] VITALS: BP 131/76
[2017-11-18] MEDS: Docusate 100mg cap ORAL SCH ×2 (08:12→17:07)
[2017-11-18] MEDS: Aspirin Baby 81mg ORAL SCH (08:13)
[2017-11-18] MEDS: Lisinopril 2.5mg tab ORAL SCH (08:13)
--- NOTE | 2017-11-18 09:29 | General Progress Note ---
Assessment/Plan Assessment/Plan PHYSICAL EXAMINATION: HEAD AND NECK: Atraumatic and normocephalic. CHEST: Clear to auscultation. No wheezing. No crackles. HEART: S1 and S2. Regular rate and rhythm. No S3. No S4. ABDOMEN: Prominent, no tenderness, bowel sounds are normal. NEUROLOGIC: The patient is awake, Not alert . agitated at times. Easily arousal. Cranial nerve deficits cannot be excluded at this time. Limited examination. ASSESSMENT: 1. Encephalopathy. multifactorial 2. Urinary tract infection. 3. Metastatic colon CA. 4. Hyponatremia. 5. Hypertension, uncontrolled. 6. Anemia. 7. Dementia 7. GI and DVT prophylaxis. 9. Comfortcare 10 . Sepsis : source unknown 11. Acute RLE DVT PLAN OF CARE: Plan: Hospice placement. Spoke to Raymon. Mentioned that is not capable to take mother at her home Placement in progress Comfortcare. No additional lab test Ok to DC IV line, as patient refusal and complaints of pain at the site. OK to switch meds from IV to PO New Acute RLE DVT, given the absence of pain and symptoms, not deemed to be treated in this patient with the goal of the comfort care Ok to followup as o/p Subjective Allergies: Coded Allergies: No Known Allergies (Unverified , 06/09/16) Objective Last 24 Hour Vital Signs Date Time Temp Pulse Resp B/P (MAP) Pulse Ox O2 Delivery O2 Flow Rate FiO2 11/18/17 08:13 104 131/76 11/18/17 08:13 131/76 11/18/17 07:28 97.6 104 19 131/76 98 Room Air 97.6 11/18/17 04:00 98.3 94 18 130/64 98 98.3 11/18/17 00:00 99.3 79 19 136/63 95 99.3 11/17/17 20:08 94 151/72 11/17/17 19:55 99.3 94 18 151/72 97 99.3 11/17/17 16:00 98.3 80 18 124/65 97 98.3 11/17/17 12:00 97.1 77 20 127/64 100 Room Air 97.1 Intake and Output 11/17/17 11/18/17 19:00 07:00 Intake Total 500 ml Balance 500 ml Intake Oral 500 ml # Voids 2 2 # Bowel Movements 1 Height (Feet): 5 Height (Inches): 2.00 Weight (Pounds): 124 Dalila Reyes MD November 18, 2017 09:29
--- NOTE | 2017-11-18 10:18 | Diagnostic Imaging Report ---
APPROVED REPORT CPT Code: 42086 Present Symptoms Lower Extremity Pain: Right RIGHT LEG: Venous imaging reveals acute thrombus in the calf vein (peroneal tibial). Imaging also reveals patency of the common femoral, popliteal and calf veins (posterior tibial and anterior tibial). The greater saphenous vein is within normal limits. LEFT LEG: Venous imaging reveals a patent deep venous system. There is no evidence of thrombus within the femoral, popliteal or tibial segments. The greater saphenous vein is also within normal limits. Doppler indicates normal spontaneous flow within these segments. YUE Damon was notified of abnormal results at 0810 hours.
[2017-11-18 12:00] VITALS: BP 132/63
[2017-11-18 16:00] VITALS: BP 131/64
[2017-11-18 20:00] VITALS: BP 143/74
[2017-11-18] MEDS: OLANZapine 2.5mg tab ORAL SCH (20:23)
[2017-11-19] VITALS: BP 136/60
[2017-11-19 04:00] VITALS: BP 133/63
[2017-11-19 08:00] VITALS: BP 129/66
[2017-11-19] MEDS: Lisinopril 2.5mg tab ORAL SCH (09:05)
[2017-11-19] MEDS: Docusate 100mg cap ORAL SCH ×2 (09:05→17:50)
[2017-11-19] MEDS: Aspirin Baby 81mg ORAL SCH (09:06)
[2017-11-19 12:00] VITALS: BP 131/63
--- NOTE | 2017-11-19 15:30 | General Progress Note ---
Assessment/Plan Problem List: (1) Altered mental status ICD Codes: R41.82 - Altered mental status, unspecified SNOMED: 570475722 (2) Agitated Assessment & Plan: encephalopathy resolved -zyprexa 2.5mg qhs -haldol im -provided ro/st ICD Codes: R45.1 - Restlessness and agitation SNOMED: 983683136 Status: stable, progressing Assessment/Plan encephalopathy resolved -zyprexa 2.5mg qhs -haldol im -provided ro/st Subjective Date patient seen: November 19, 2017 Neurologic/Psychiatric: Reports: anxiety, depressed, emotional problems Allergies: Coded Allergies: No Known Allergies (Unverified , 06/09/16) Subjective the pt wants to leave and go home. No behavioral issues Objective Last 24 Hour Vital Signs Date Time Temp Pulse Resp B/P (MAP) Pulse Ox O2 Delivery O2 Flow Rate FiO2 11/19/17 12:00 98.6 73 18 131/63 98 Room Air 98.6 11/19/17 09:06 88 133/63 11/19/17 09:05 133/63 11/19/17 08:00 98.6 89 14 129/66 99 Room Air 98.6 11/19/17 04:00 98.1 88 18 133/63 100 98.1 11/19/17 00:00 98.2 88 18 136/60 98 98.2 11/18/17 20:22 98 143/74 11/18/17 20:00 98.7 98 18 143/74 100 98.7 11/18/17 16:00 98.3 82 20 131/64 100 Room Air 98.3 Intake and Output 11/18/17 11/19/17 19:00 07:00 Intake Total 300 ml 680 ml Output Total 650 ml Balance 300 ml 30 ml Intake Oral 300 ml 680 ml Output Urine Total 650 ml # Voids 3 3 # Bowel Movements 1 Height (Feet): 5 Height (Inches): 2.00 Weight (Pounds): 124 General Appearance: no apparent distress, alert Arvin Pollock M.D. November 19, 2017 15:30
--- NOTE | 2017-11-19 15:31 | Geriatric Progress Note ---
Assessment/Plan Assessment/Plan encephalopathy dementia with behavioral dist -zyprexa 2.5mg qhs -haldol im -provided ro/st Discussed with: patient Subjective Interval Events 11/18/17 Mood/Memory: Reports: prior hx, anxiety, depressed feelings, emotional problems Geriatric Geriatric Last 24 Hour Vital Signs Date Time Temp Pulse Resp B/P (MAP) Pulse Ox O2 Delivery O2 Flow Rate FiO2 11/19/17 12:00 98.6 73 18 131/63 98 Room Air 98.6 11/19/17 09:06 88 133/63 11/19/17 09:05 133/63 11/19/17 08:00 98.6 89 14 129/66 99 Room Air 98.6 11/19/17 04:00 98.1 88 18 133/63 100 98.1 11/19/17 00:00 98.2 88 18 136/60 98 98.2 11/18/17 20:22 98 143/74 11/18/17 20:00 98.7 98 18 143/74 100 98.7 11/18/17 16:00 98.3 82 20 131/64 100 Room Air 98.3 Intake and Output 11/18/17 11/19/17 19:00 07:00 Intake Total 300 ml 680 ml Output Total 650 ml Balance 300 ml 30 ml Intake Oral 300 ml 680 ml Output Urine Total 650 ml # Voids 3 3 # Bowel Movements 1 Current Medications Medications (Trade) Dose Ordered Sig/Richardson Route PRN Reason Start Time Stop Time Status Last Admin Dose Admin Acetaminophen (Tylenol) 650 mg Q4H PRN ORAL Mild Pain/Temp > 100.5 10/31/17 16:30 11/30/17 16:29 11/15/17 00:29 Aspirin (ASA) 81 mg DAILY ORAL 10/30/17 09:00 11/26/17 08:59 11/19/17 09:06 Docusate Sodium (Colace) 100 mg TWICE A DAY ORAL 10/30/17 18:00 11/29/17 17:59 11/19/17 09:05 Ferrous Sulfate (Feosol) 325 mg TWICE A DAY ORAL 11/16/17 18:00 11/26/17 08:59 11/19/17 09:06 Furosemide (Lasix) 20 mg DAILY PRN ORAL prn for leg swelling 11/16/17 16:30 12/16/17 16:29 11/16/17 17:33 Haloperidol Lactate (Haldol) 5 mg Q6H PRN IM Agitation 10/29/17 16:45 11/27/17 16:44 11/07/17 09:40 Lisinopril (Zestril) 2.5 mg DAILY ORAL 10/30/17 09:00 11/27/17 12:29 11/19/17 09:05 Magnesium Hydroxide (Mom) 30 ml DAILYPRN PRN ORAL Constipation 10/30/17 16:30 11/29/17 15:59 10/30/17 17:31 Metoprolol Tartrate (Lopressor) 100 mg Q12HR ORAL 10/29/17 21:00 11/26/17 20:59 11/19/17 09:06 Olanzapine (ZyPREXA) 2.5 mg BEDTIME ORAL 10/30/17 21:00 11/29/17 20:59 11/17/17 20:08 Pantoprazole (Protonix) 40 mg DAILY ORAL 10/30/17 09:00 11/26/17 08:59 11/19/17 09:06 Quetiapine Fumarate (SEROquel) 25 mg Q12HR ORAL 11/15/17 21:00 12/15/17 20:59 11/19/17 09:06 Height (Feet): 5 Height (Inches): 2.00 Weight (Pounds): 124 General Appearance: well appearing, well dressed, alert Psychiatric Orientation: person, place, time Affect: appropriate Insight: Arvin Aguero M.D. November 19, 2017 15:31
[2017-11-19 16:00] VITALS: BP 129/66
[2017-11-19 20:00] VITALS: BP 147/67
[2017-11-19] MEDS: OLANZapine 2.5mg tab ORAL SCH (21:00)
[2017-11-20] VITALS: BP 129/62
[2017-11-20 04:00] VITALS: BP 128/58
[2017-11-20 08:00] VITALS: BP 137/74
[2017-11-20] MEDS: Lisinopril 2.5mg tab ORAL SCH (08:46)
[2017-11-20] MEDS: Aspirin Baby 81mg ORAL SCH (08:46)
[2017-11-20] MEDS: Docusate 100mg cap ORAL SCH ×2 (08:58→17:27)
[2017-11-20 12:00] VITALS: BP 140/67
--- NOTE | 2017-11-20 15:59 | General Progress Note ---
Assessment/Plan Problem List: (1) Altered mental status ICD Codes: R41.82 - Altered mental status, unspecified SNOMED: 309435921 (2) Agitated Assessment & Plan: encephalopathy resolved -zyprexa 2.5mg qhs -haldol im -provided ro/st ICD Codes: R45.1 - Restlessness and agitation SNOMED: 158213675 Status: stable, progressing Assessment/Plan encephalopathy resolved -zyprexa 2.5mg qhs -haldol im -provided ro/st Subjective Date patient seen: November 20, 2017 Neurologic/Psychiatric: Reports: anxiety, depressed, emotional problems Allergies: Coded Allergies: No Known Allergies (Unverified , 06/09/16) Subjective the pt wants to leave and go home. No behavioral issues Objective Last 24 Hour Vital Signs Date Time Temp Pulse Resp B/P (MAP) Pulse Ox O2 Delivery O2 Flow Rate FiO2 11/20/17 12:00 97.5 96 18 140/67 96 Room Air 97.5 11/20/17 08:46 95 137/74 11/20/17 08:46 137/74 11/20/17 08:00 97.9 95 16 137/74 100 Room Air 97.9 11/20/17 04:00 99.0 89 20 128/58 99 99.0 11/20/17 00:00 99.6 83 20 129/62 97 99.6 11/19/17 21:07 70 129/66 11/19/17 20:00 98.4 96 20 147/67 99 98.4 11/19/17 16:00 98.0 70 18 129/66 98 Room Air 98.0 Intake and Output 11/19/17 11/20/17 19:00 07:00 Intake Total 840 ml Balance 840 ml Intake Oral 840 ml # Voids 3 1 Height (Feet): 5 Height (Inches): 2.00 Weight (Pounds): 135 General Appearance: no apparent distress, alert Neurologic: oriented x 3, responsive, depressed affect Arvin Pollock M.D. November 20, 2017 15:59
[2017-11-20 16:00] VITALS: BP 130/59
[2017-11-20 20:00] VITALS: BP 135/64
[2017-11-20] MEDS: OLANZapine 2.5mg tab ORAL SCH (20:10)
[2017-11-21] VITALS: BP 141/62
[2017-11-21 04:00] VITALS: BP 122/68
[2017-11-21 08:00] VITALS: BP 125/64
[2017-11-21] MEDS: Docusate 100mg cap ORAL SCH ×2 (08:51→18:02)
[2017-11-21] MEDS: Aspirin Baby 81mg ORAL SCH (08:51)
[2017-11-21] MEDS: Lisinopril 2.5mg tab ORAL SCH (08:54)
--- NOTE | 2017-11-21 11:56 | General Progress Note ---
Assessment/Plan Problem List: (1) Altered mental status ICD Codes: R41.82 - Altered mental status, unspecified SNOMED: 848009298 (2) Agitated Assessment & Plan: encephalopathy resolved -zyprexa 2.5mg qhs -haldol im -provided ro/st ICD Codes: R45.1 - Restlessness and agitation SNOMED: 758753326 Status: doing well, stable Assessment/Plan encephalopathy resolved -zyprexa 2.5mg qhs -haldol im -provided ro/st Subjective Date patient seen: November 21, 2017 Neurologic/Psychiatric: Reports: anxiety, depressed, emotional problems Allergies: Coded Allergies: No Known Allergies (Unverified , 06/09/16) Subjective the pt wants to leave and go home. No behavioral issues Objective Last 24 Hour Vital Signs Date Time Temp Pulse Resp B/P (MAP) Pulse Ox O2 Delivery O2 Flow Rate FiO2 11/21/17 08:54 125/67 11/21/17 08:53 85 125/64 11/21/17 08:00 97.2 89 20 125/64 99 Room Air 97.2 11/21/17 04:00 99.4 87 17 122/68 98 Room Air 99.4 11/21/17 00:00 98.8 80 17 141/62 97 Room Air 98.8 11/20/17 20:12 90 135/64 11/20/17 20:00 99.5 18 135/64 90 Room Air 99.5 11/20/17 16:00 97.9 89 20 130/59 99 Room Air 97.9 11/20/17 12:00 97.5 96 18 140/67 96 Room Air 97.5 Intake and Output 11/20/17 11/21/17 19:00 07:00 Intake Total 720 ml 240 ml Balance 720 ml 240 ml Intake Oral 720 ml 240 ml # Voids 2 Height (Feet): 5 Height (Inches): 2.00 Weight (Pounds): 135 General Appearance: WD/WN, no apparent distress, alert Neurologic: oriented x 3, responsive, depressed affect Arvin Pollock M.D. November 21, 2017 11:56
[2017-11-21 12:00] VITALS: BP 132/63
[2017-11-21 16:00] VITALS: BP 132/62
[2017-11-21 20:00] VITALS: BP 133/66
[2017-11-21] MEDS: OLANZapine 2.5mg tab ORAL SCH (20:56)
[2017-11-22 00:50] VITALS: BP 140/62
[2017-11-22 04:00] VITALS: BP 148/68
[2017-11-22 08:00] VITALS: BP 125/62
[2017-11-22] MEDS: Aspirin Baby 81mg ORAL SCH (08:14)
[2017-11-22] MEDS: Docusate 100mg cap ORAL SCH ×2 (08:14→17:44)
[2017-11-22] MEDS: Lisinopril 2.5mg tab ORAL SCH (08:15)
[2017-11-22 11:55] VITALS: BP 134/65
--- NOTE | 2017-11-22 12:40 | General Progress Note ---
Assessment/Plan Status: stable Assessment/Plan PHYSICAL EXAMINATION: HEAD AND NECK: Atraumatic and normocephalic. CHEST: Clear to auscultation. No wheezing. No crackles. HEART: S1 and S2. Regular rate and rhythm. No S3. No S4. ABDOMEN: Prominent, no tenderness, bowel sounds are normal. NEUROLOGIC: The patient is awake, Not alert . agitated at times. Easily arousal. Cranial nerve deficits cannot be excluded at this time. Limited examination. ASSESSMENT: 1. Encephalopathy. multifactorial 2. Urinary tract infection. 3. Metastatic colon CA. 4. Hyponatremia. 5. Hypertension, uncontrolled. 6. Anemia. 7. Dementia 7. GI and DVT prophylaxis. 9. Comfortcare 10 . Sepsis : source unknown 11. Acute RLE DVT PLAN OF CARE: Plan: Hospice placement. Spoke to Raymon. Mentioned that is not capable to take mother at her home Placement in progress Comfortcare. No additional lab test Ok to DC IV line, as patient refusal and complaints of pain at the site. OK to switch meds from IV to PO New Acute RLE DVT, given the absence of pain and symptoms, not deemed to be treated in this patient with the goal of the comfort care Ok to followup as o/p Subjective ROS Limited/Unobtainable: No Constitutional: Reports: fever, malaise Allergies: Coded Allergies: No Known Allergies (Unverified , 06/09/16) Objective Last 24 Hour Vital Signs Date Time Temp Pulse Resp B/P (MAP) Pulse Ox O2 Delivery O2 Flow Rate FiO2 11/22/17 11:55 97.6 66 19 134/65 99 Room Air 97.6 11/22/17 08:15 79 125/62 11/22/17 08:15 125/62 11/22/17 08:00 98.2 79 18 125/62 98 Room Air 98.2 11/22/17 04:00 98.4 86 20 148/68 99 Room Air 98.4 11/22/17 00:50 98.2 101 20 140/62 96 Room Air 98.2 11/21/17 20:55 97 133/66 11/21/17 20:00 98.0 97 20 133/66 98 Room Air 98.0 11/21/17 16:00 97.3 90 20 132/62 Room Air 97.3 Intake and Output 11/21/17 11/22/17 19:00 07:00 Intake Total 420 ml 320 ml Output Total 600 ml Balance 420 ml -280 ml Intake Oral 420 ml 320 ml Output Urine Total 600 ml # Voids 6 1 Height (Feet): 5 Height (Inches): 2.00 Weight (Pounds): 135 General Appearance: WD/WN EENT: PERRL/EOMI Neck: non-tender Cardiovascular: normal rate Respiratory/Chest: lungs clear Abdomen: soft Extremities: non-tender 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
--- NOTE | 2017-11-22 12:57 | General Progress Note ---
Assessment/Plan Problem List: (1) Altered mental status ICD Codes: R41.82 - Altered mental status, unspecified SNOMED: 850135135 (2) Agitated Assessment & Plan: encephalopathy resolved -zyprexa 2.5mg qhs -haldol im -provided ro/st ICD Codes: R45.1 - Restlessness and agitation SNOMED: 019548804 Status: stable Assessment/Plan encephalopathy resolved -zyprexa 2.5mg qhs -haldol im -provided ro/st -awaiting placement Subjective Date patient seen: November 22, 2017 Neurologic/Psychiatric: Reports: anxiety, depressed, emotional problems Allergies: Coded Allergies: No Known Allergies (Unverified , 06/09/16) Subjective the pt wants to leave and go home. No behavioral issues Objective Last 24 Hour Vital Signs Date Time Temp Pulse Resp B/P (MAP) Pulse Ox O2 Delivery O2 Flow Rate FiO2 11/22/17 11:55 97.6 66 19 134/65 99 Room Air 97.6 11/22/17 08:15 79 125/62 11/22/17 08:15 125/62 11/22/17 08:00 98.2 79 18 125/62 98 Room Air 98.2 11/22/17 04:00 98.4 86 20 148/68 99 Room Air 98.4 11/22/17 00:50 98.2 101 20 140/62 96 Room Air 98.2 11/21/17 20:55 97 133/66 11/21/17 20:00 98.0 97 20 133/66 98 Room Air 98.0 11/21/17 16:00 97.3 90 20 132/62 Room Air 97.3 Intake and Output 11/21/17 11/22/17 19:00 07:00 Intake Total 420 ml 320 ml Output Total 600 ml Balance 420 ml -280 ml Intake Oral 420 ml 320 ml Output Urine Total 600 ml # Voids 6 1 Height (Feet): 5 Height (Inches): 2.00 Weight (Pounds): 135 General Appearance: no apparent distress, alert Neurologic: oriented x 3, responsive, depressed affect Arvin Pollock M.D. November 22, 2017 12:57
[2017-11-22 16:00] VITALS: BP 115/71
[2017-11-22] MEDS: Milk of Magnesia 30ml Ud ORAL PRN (17:45)
[2017-11-22 20:00] VITALS: BP 156/81
[2017-11-22] MEDS: OLANZapine 2.5mg tab ORAL SCH (21:03)
[2017-11-23] VITALS: BP 145/71
[2017-11-23 04:00] VITALS: BP 144/74
[2017-11-23 08:00] VITALS: BP 139/84
[2017-11-23] MEDS: Aspirin Baby 81mg ORAL SCH (08:25)
[2017-11-23] MEDS: Lisinopril 2.5mg tab ORAL SCH (08:26)
[2017-11-23] MEDS: Docusate 100mg cap ORAL SCH ×2 (10:16→17:36)
[2017-11-23 12:00] VITALS: BP 133/71
[2017-11-23 16:00] VITALS: BP 121/72
[2017-11-23 20:00] VITALS: BP 147/75
[2017-11-23] MEDS: OLANZapine 2.5mg tab ORAL SCH (20:30)
[2017-11-24] VITALS: BP 141/72
[2017-11-24 04:00] VITALS: BP 143/74
[2017-11-24 08:21] VITALS: BP 123/63
[2017-11-24] MEDS: Docusate 100mg cap ORAL SCH ×2 (10:03→17:36)
[2017-11-24] MEDS: Lisinopril 2.5mg tab ORAL SCH (10:03)
[2017-11-24] MEDS: Aspirin Baby 81mg ORAL SCH (10:03)
--- NOTE | 2017-11-24 11:35 | General Progress Note ---
Assessment/Plan Assessment/Plan ASSESSMENT: 1. Encephalopathy. multifactorial 2. Urinary tract infection. 3. Metastatic colon CA. 4. Hyponatremia. 5. Hypertension, uncontrolled. 6. Anemia. 7. Dementia 7. GI and DVT prophylaxis. 9. Comfortcare 10 . Sepsis : source unknown 11. Acute RLE DVT PLAN OF CARE: Plan: Hospice placement. Spoke to Raymon. Mentioned that is not capable to take mother at her home Placement in progress Comfortcare. No additional lab test Ok to DC IV line, as patient refusal and complaints of pain at the site. OK to switch meds from IV to PO New Acute RLE DVT, given the absence of pain and symptoms, not deemed to be treated in this patient with the goal of the comfort care Ok to followup as o/p Subjective Allergies: Coded Allergies: No Known Allergies (Unverified , 06/09/16) Objective Last 24 Hour Vital Signs Date Time Temp Pulse Resp B/P (MAP) Pulse Ox O2 Delivery O2 Flow Rate FiO2 11/24/17 10:03 82 123/63 11/24/17 10:03 123/63 11/24/17 08:21 97.5 82 18 123/63 96 Room Air 97.5 11/24/17 04:00 98.6 99 19 143/74 97 Room Air 98.6 11/24/17 00:00 98.7 86 19 141/72 97 Room Air 98.7 11/23/17 20:31 101 147/75 11/23/17 20:00 98.7 101 20 147/75 97 Room Air 98.7 11/23/17 16:00 98.3 90 20 121/72 98 Room Air 98.3 11/23/17 12:00 98.3 83 19 133/71 98 Room Air 98.3 Intake and Output 11/23/17 11/24/17 19:00 07:00 Intake Total 840 ml 120 ml Balance 840 ml 120 ml Intake Oral 840 ml 120 ml # Voids 4 2 # Bowel Movements 1 Height (Feet): 5 Height (Inches): 2.00 Weight (Pounds): 135 Objective PHYSICAL EXAMINATION: HEAD AND NECK: Atraumatic and normocephalic. CHEST: Clear to auscultation. No wheezing. No crackles. HEART: S1 and S2. Regular rate and rhythm. No S3. No S4. ABDOMEN: Prominent, no tenderness, bowel sounds are normal. NEUROLOGIC: The patient is awake, improved in her alert ness. agitated at times. MS: minimal bilateral edema. 1+ edema in RLE with no pain Dalila Reyes MD November 24, 2017 11:35
[2017-11-24 12:00] VITALS: BP 135/68
[2017-11-24 16:00] VITALS: BP 127/71
[2017-11-24 20:00] VITALS: BP 137/74
[2017-11-24] MEDS: OLANZapine 2.5mg tab ORAL SCH (20:42)
[2017-11-25] VITALS: BP 145/71
[2017-11-25 04:00] VITALS: BP 153/72
[2017-11-25 08:00] VITALS: BP 130/65
[2017-11-25] MEDS: Aspirin Baby 81mg ORAL SCH (09:34)
[2017-11-25] MEDS: Docusate 100mg cap ORAL SCH ×2 (09:35→17:29)
[2017-11-25] MEDS: Lisinopril 2.5mg tab ORAL SCH (09:35)
[2017-11-25 12:00] VITALS: BP 151/76
--- NOTE | 2017-11-25 15:02 | General Progress Note ---
Assessment/Plan Problem List: (1) Altered mental status ICD Codes: R41.82 - Altered mental status, unspecified SNOMED: 519504822 (2) Agitated Assessment & Plan: encephalopathy resolved -zyprexa 2.5mg qhs -haldol im -provided ro/st ICD Codes: R45.1 - Restlessness and agitation SNOMED: 855594879 Status: stable, progressing Assessment/Plan encephalopathy resolved -zyprexa 2.5mg qhs -haldol im -provided ro/st -awaiting placement Subjective Date patient seen: November 25, 2017 Neurologic/Psychiatric: Reports: anxiety, depressed, emotional problems Allergies: Coded Allergies: No Known Allergies (Unverified , 06/09/16) Subjective the pt wants to leave and go home. No behavioral issues Objective Last 24 Hour Vital Signs Date Time Temp Pulse Resp B/P (MAP) Pulse Ox O2 Delivery O2 Flow Rate FiO2 11/25/17 12:00 98.7 104 20 151/76 100 Room Air 98.7 11/25/17 09:35 92 153/72 11/25/17 09:35 153/72 11/25/17 08:00 97.4 100 20 130/65 100 Room Air 97.4 11/25/17 04:00 98.2 92 20 153/72 Room Air 98.2 11/25/17 00:00 98.2 82 20 145/71 95 Room Air 98.2 11/24/17 20:37 89 137/74 11/24/17 20:00 98.9 89 20 137/74 97 Room Air 98.9 11/24/17 16:00 98.8 76 17 127/71 96 Room Air 98.8 Intake and Output 11/24/17 11/25/17 19:00 07:00 Intake Total 1200 ml 120 ml Balance 1200 ml 120 ml Intake Oral 120 ml Other 1200 ml # Voids 3 2 Height (Feet): 5 Height (Inches): 2.00 Weight (Pounds): 135 General Appearance: WD/WN, no apparent distress, alert Arvin Pollock M.D. November 25, 2017 15:02
[2017-11-25 16:00] VITALS: BP 132/77
[2017-11-25] MEDS ORDERED: ZESTRIL30 MG ORAL (18:03)
[2017-11-25] MEDS ORDERED: METOPROLOL TAR100 M1 ORAL (18:04)
[2017-11-25] MEDS ORDERED: ZYPREXA7.5 MG ORAL (18:04)
[2017-11-25] MEDS ORDERED: QUETIAPINE FUMA25 MG ORAL (18:05)
[2017-11-25] MEDS ORDERED: FERROUS SULFAT325 MG ORAL (18:06)
[2017-11-25] MEDS ORDERED: FUROSEMIDE20 M1 ORAL (18:06)
[2017-11-25] MEDS ORDERED: DOCUSATE SODIU100 M2 ORAL (18:06)
[2017-11-25] MEDS ORDERED: ACETAMINOPHEN325 M1 ORAL (18:07)
[2017-11-25] MEDS ORDERED: MILK OF MA400 MG/51 ORAL (18:08)
--- NOTE | 2017-11-26 14:13 | Psych Consult Progress Note ---
Psych Consult Progress Note Consult 11/23/17 encephalopathy resolved -zyprexa 2.5mg qhs -haldol im -provided ro/st -awaiting placement Vital Signs Last 24 Hour Vital Signs Date Time Temp Pulse Resp B/P (MAP) Pulse Ox O2 Delivery O2 Flow Rate FiO2 11/25/17 16:00 99.1 82 20 132/77 97 Room Air 99.1 Problems: (1) Altered mental status (2) Agitated Status: Acute Assessment & Plan: encephalopathy resolved -zyprexa 2.5mg qhs -haldol im -provided ro/st Arvin Pollock M.D. November 26, 2017 14:13
--- NOTE | 2017-11-26 14:14 | Geriatric Progress Note ---
Assessment/Plan Assessment/Plan encephalopathy dementia with behavioral dist -zyprexa 2.5mg qhs -haldol im -provided ro/st Discussed with: patient Subjective Interval Events 11/23/17 Mood/Memory: Reports: anxiety, depressed feelings, emotional problems Geriatric Geriatric Last 24 Hour Vital Signs Date Time Temp Pulse Resp B/P (MAP) Pulse Ox O2 Delivery O2 Flow Rate FiO2 11/25/17 16:00 99.1 82 20 132/77 97 Room Air 99.1 Intake and Output 11/25/17 11/26/17 19:00 07:00 Intake Total 480 ml Balance 480 ml Intake Oral 480 ml # Voids 3 Height (Feet): 5 Height (Inches): 2.00 Weight (Pounds): 135 Arvin Pollock M.D. November 26, 2017 14:14
--- NOTE | 2017-11-27 12:52 | Discharge Summary ---
Discharge Summary Hospital Course Date of Admission Oct 26, 2017 at 23:08 Date of Discharge November 25, 2017 at 19:50 Admitting Diagnosis altered mental status HPI Sravani Harden is a 77 year old female who was admitted on Oct 26, 2017 at 23: 08 for Altered Mental Status Hospital Course dc summary #[id number] Discharge Medications Continued Medications: Acetaminophen* (Acetaminophen 325MG Tablet*) 325 Mg Tablet 650 MG ORAL Q4H PRN for Fever/Headache/Mild Pain, TAB Aspirin* (Aspir 81*) 81 Mg Tablet.dr 81 MG ORAL DAILY, TAB Docusate Sodium (Docusate Sodium) 100 Mg Tablet 100 MG ORAL TWICE A DAY, #60 TAB 0 Refills Ferrous Sulfate* (Ferrous Sulfate*) 325 Mg Tablet 325 MG ORAL TWICE A DAY, #60 TAB 0 Refills Furosemide* (Lasix*) 20 Mg Tablet 20 MG ORAL DAILY, TAB Lisinopril (Zestril) 30 Mg Tablet 2.5 MG ORAL DAILY, TAB Magnesium Hydroxide* (Milk Of Magnesia*) 400 Mg/5 Ml Oral.susp 30 ML ORAL DAILY for constipation, ML Metoprolol Tartrate* (Metoprolol Tartrate*) 100 Mg Tablet 100 MG ORAL EVERY 12 HOURS, TAB Olanzapine (Zyprexa) 7.5 Mg Tablet 2.5 MG ORAL QHS, #30 TAB 0 Refills Pantoprazole* (Protonix*) 40 Mg Tablet.dr 40 MG ORAL DAILY for 30 Days, #30 TAB Quetiapine Fumarate* (Seroquel*) 25 Mg Tablet 25 MG ORAL Q12HR, TAB Discharge Discharge Disposition Patient was discharged to SNF/Subacute Facility(03) Discharge Instructions Discharge Instructions Special Instructions I have been assigned to complete a D/C Summary on this account. I was not involved in the patient management Chloé Mercer NP November 27, 2017 12:52
--- NOTE | 2017-11-28 01:00 | Discharge Summary 2 SIG ---
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 The patient became agitated, was speaking rapidly, not making much sense. Usually, the patient more awake and alert. The patient was denying pain. Upon evaluation in the emergency department, the patient was tachycardic with a heart rate 122, pulse oximetry was stable on room air. The patient was afebrile. Sodium 125, potassium 2.5. WBC 15.6, hemoglobin 11 and hematocrit 31.4. Urinalysis with evidence of possible UTI. EKG revealed normal sinus rhythm. No acute ischemic changes. Chest x-ray revealed multiply lungs metastases. The patient was admitted with diagnoses of acute encephalopathy, urinary tract infection, metastatic colon cancer, hyponatremia, hypokalemia, hypertension and anemia. HOSPITAL COURSE: The patient admitted. ID and Psychiatric consults were requested. The patient was started on empiric antibiotics. Urine culture revealed mixed gram-positive organism. Infectious Disease specialist closely followed. Per Infectious Disease specialist, leukocytosis was likely due to metastatic cancer. Fever was intermittent and subsequently resolved, likely to do metastatic cancer as well. Chest x-ray showed multiple bilateral pulmonary masses consistent with metastatic disease. Postobstructive pneumonia was doubted since no respiratory symptoms were present. Hepatitis panel was negative. Blood culture were negative. The patient status post treatment with empiric Zosyn for five days, Rocephin for three days and vancomycin for four days. Infectious Disease recommended afterwards keep the patient off antibiotics and observe closely. Fever resolved. Leukocytosis persisted, again likely secondary to metastatic process. Psychiatrist seen and evaluated the patient, diagnosed the patient with encephalopathy and dementia with behavioral disturbances. The patient was started on Zyprexa. Reality orientation and supportive therapy provided. Electrolytes were closely monitored and corrected as needed. Renal parameters were closely monitored. Nephrotoxins were avoided. Prior to discharge, sodium 141 and potassium 3.5. DVT and GI prophylaxis provided. Hemoglobin and hematocrit were trending down, goal was to keep hemoglobin above 7. Venous duplex bilateral lower extremities revealed acute DVT in the right tibial peroneal vein. However, due to the poor overall prognosis due to metastatic lung disease and given the absence of pain and symptoms, it not deemed to be treated in this patient with goal of life of comfort care. IV line was discontinued. The patient had challenging placement since son was unable to take her back home since was unable to take care of the patient. Finally placement was arranged . [facility] with goal for focus on comfort care and recommended further hospice services. FINAL DIAGNOSES: 1. Encephalopathy, multifactorial. 2. Metastatic colon cancer. 3. Dementia with behavioral disturbances. 4. Hyponatremia. 5. Hypokalemia. 6. Anemia. 7. Acute right lower extremity DVT. DISCHARGE MEDICATIONS: See medication reconciliation list. DISCHARGE INSTRUCTIONS: [facility]. Follow up with the medical provider at the facility with a focus on comfort care. Dalila Reyes M.D. I have been assigned to dictate discharge summary on this account and I was not involved in the patient's management. Chloé Duongrobi NNoman DR: CLARA JOB#: [id number] CC: ARLYN
== END 2017-11-25 19:50 | DRG 463 ==
LOC: EMR 22:42 → 2E 23:08 → EDBEDREQ 10-27 00:49 → 2E 10-27 13:37 → 4E 10-29 16:21 → SDSOVERFLO 11-01 14:16 → 4E 11-01 14:17
DX: N39.0 Urinary tract infection, site not specified (principal); G93.40 Encephalopathy, unspecified; A41.9 Sepsis, unspecified organism; C78.00 Secondary malignant neoplasm of unspecified lung; C78.6 Secondary malignant neoplasm of retroperitoneum and peritoneum; C18.9 Malignant neoplasm of colon, unspecified; D64.9 Anemia, unspecified; E87.1 Hypo-osmolality and hyponatremia; E87.6 Hypokalemia; I10 Essential (primary) hypertension; Z51.5 Encounter for palliative care; I82.491 Acute embolism and thrombosis of other specified deep vein of right lower extremity; F03.91 Unspecified dementia, unspecified severity, with behavioral disturbance
CPT/HCPCS: 36415; 71045; 80053; 80061; 80202; 80307; 80329; 81003; 82550; 83036; 83605; 83880; 84484; 85007; 85025; 86140; 87040; 87081; 87086; 93005; 93970; 99285; J2405; J8499